=== PATIENT | male | born 1955 | race Caucasian/White ===

== ENCOUNTER 2016-11-05 12:19 | Inpatient (IN) | payer OTHER ==
[2016-11-05] VITALS (12 sets, daily range): BP systolic 84–138; BP diastolic 47–73; PULSE 101–127; RESP 14–24; TEMP 97.8–98.1; O2SAT 98–100
[~2016-11-05] VITALS: Ht 172.7 cm; Wt 87.1 kg
[2016-11-05] MEDS ORDERED: SODIUM CHLOR 0.9% 1000 ML INJ 1,000 ML IV SCH (12:41)
--- NOTE | 2016-11-05 12:41 | PD ---
HPI Chief Complaint: GI Complaint Time Seen by Provider: 12:41 Travel History International Travel<30 days: No Contact w/Intl Traveler<30days: No Traveled to known affect area: No History of Present Illness HPI 60-year-old male with no significant medical history, presents to emergency department for evaluation of shelby red stool that began yesterday and continuing until today. Patient speaks primarily Indonesian and approved his daughter to translate at bedside. Patient states he had some lower abdominal pain yesterday which was quite severe however he is no longer having significant pain but describes it as a mild lower abdominal pain. He had 4 episodes of shelby red bloody stool yesterday and has had them today as well. Last episode was around 9:30 AM this morning. Patient did have a syncopal episode last night which was witnessed. He did not strike his head. Today he denies any headache, focal deficit, or wheezing. He denies fever or chills. He has been nauseous without vomiting. Patient has not had a colonoscopy. He does take 325 mg of aspirin daily and was started on a medication for bloating 2 days ago but cannot recall the name. He has no other symptoms to report. [facility] Past Medical History Medical History: Denies Significant Hx Social History Alcohol Use: No Tobacco Use: No Substance Use: No Allergies-Medications (Allergen,Severity, Reaction): Coded Allergies: No Known Allergies (Unverified , 11/05/16) Reported Meds & Prescriptions Reported Meds & Active Scripts Active Reported [Unk Stomach Pill] DAILY Aspirin 325 Mg Tab 325 Mg PO DAILY Review of Systems Except as stated in HPI: all other systems reviewed are Neg Physical Exam Narrative GENERAL: Well-nourished, male patient, ambulatory and in no acute distress. SKIN: Warm and dry. Patient appears slightly pallor. HEAD: Atraumatic. Normocephalic. EYES: Pupils equal and round. No scleral icterus. No injection or drainage. ENT: No nasal bleeding or discharge. Mucous membranes pink and moist. NECK: Trachea midline. No JVD. CARDIOVASCULAR: Tachycardic rate and rhythm. No murmur appreciated. RESPIRATORY: No accessory muscle use. Clear to auscultation. Breath sounds equal bilaterally. GASTROINTESTINAL: Abdomen soft, nondistended. Left lower quadrant tenderness to palpation. Hepatic and splenic margins not palpable. RECTAL EXAM: No masses. There is tenderness to palpation of the rectal wall. Shelby red stool noted MUSCULOSKELETAL: No obvious deformities. No clubbing. No cyanosis. No edema. NEUROLOGICAL: Awake and alert. No obvious cranial nerve deficits. Motor grossly within normal limits. Normal speech. PSYCHIATRIC: Appropriate mood and affect; insight and judgment normal. Data Data Last Documented VS Vital Signs Date Time Temp Pulse Resp B/P Pulse Ox O2 Delivery O2 Flow Rate FiO2 11/05/16 12:38 111 20 138/69 140 20 113/68 11/05/16 12:22 98.1 100 Room Air Orders Complete Blood Count With Diff (11/05/16 12:41) Comprehensive Metabolic Panel (11/05/16 12:41) Prothrombin Time / Inr (Pt) (11/05/16 12:41) Act Partial Throm Time (Ptt) (11/05/16 12:41) Urinalysis - C+S If Indicated (11/05/16 12:41) Type And Screen (11/05/16 12:41) Chest, Single Ap (11/05/16 12:41) Ecg Monitoring (11/05/16 12:41) Iv Access Insert/Monitor (11/05/16 12:41) Oximetry (11/05/16 12:41) Sodium Chlor 0.9% 1000 Ml Inj (Ns 1000 M (11/05/16 12:41) Sodium Chloride 0.9% Flush (Ns Flush) (11/05/16 12:45) Electrocardiogram (11/05/16 ) Ckmb (Isoenzyme) Profile (11/05/16 12:41) Troponin I (11/05/16 12:41) Ct Abd/Pel W Iv Contrast(Rout) (11/05/16 ) Diet Clear Liquid (11/05/16 Dinner) Peg (High)/E-Lyte Liq (Colyte Liq) (11/05/16 14:15) Npo After Midnight W/ Po Meds (11/05/16 Dinner) Consult Gastroenterology (11/05/16 ) Iohexol 350 Inj (Omnipaque 350 Inj) (11/05/16 14:19) Admit Order (Ed Use Only) (11/05/16 14:27) Labs Laboratory Tests Test 11/05/16 11/05/16 12:55 12:59 White Blood Count 8.2 TH/MM3 Red Blood Count 3.96 MIL/MM3 Hemoglobin 9.9 GM/DL Hematocrit 30.5 % Mean Corpuscular Volume 77.0 FL Mean Corpuscular Hemoglobin 25.0 PG Mean Corpuscular Hemoglobin 32.5 % Concent Red Cell Distribution Width 15.1 % Platelet Count 243 TH/MM3 Mean Platelet Volume 9.4 FL Neutrophils (%) (Auto) 50.7 % Lymphocytes (%) (Auto) 40.2 % Monocytes (%) (Auto) 7.1 % Eosinophils (%) (Auto) 1.3 % Basophils (%) (Auto) 0.7 % Neutrophils # (Auto) 4.2 TH/MM3 Lymphocytes # (Auto) 3.3 TH/MM3 Monocytes # (Auto) 0.6 TH/MM3 Eosinophils # (Auto) 0.1 TH/MM3 Basophils # (Auto) 0.1 TH/MM3 CBC Comment DIFF FINAL Differential Comment Prothrombin Time 10.7 SEC Prothromb Time International 1.0 RATIO Ratio Activated Partial 23.2 SEC Thromboplast Time Sodium Level 137 MEQ/L Potassium Level 3.7 MEQ/L Chloride Level 104 MEQ/L Carbon Dioxide Level 27.1 MEQ/L Anion Gap 6 MEQ/L Blood Urea Nitrogen 23 MG/DL Creatinine 0.91 MG/DL Estimat Glomerular Filtration 86 ML/MIN Rate Random Glucose 120 MG/DL Calcium Level 9.0 MG/DL Total Bilirubin 0.3 MG/DL Aspartate Amino Transf 51 U/L (AST/SGOT) Alanine Aminotransferase 63 U/L (ALT/SGPT) Alkaline Phosphatase 43 U/L Total Creatine Kinase 53 U/L Troponin I LESS THAN 0.02 NG/ML Total Protein 6.6 GM/DL Albumin 3.6 GM/DL Blood Type O POSITIVE Antibody Screen NEGATIVE Blood Bank Comment [facility] Medical Decision Making Medical Screen Exam Complete: Yes Emergency Medical Condition: Yes Medical Record Reviewed: Yes Differential Diagnosis GI bleed versus hemorrhoids versus polyp versus symptomatic anemia versus electrolyte abnormality versus orthostatic hypotension Narrative Course 60-year-old male presents to emergency department for evaluation of a syncopal episode last evening following for episodes of shelby red stool. He continues to have frequent stool today. Patient is tachycardic. Slight left lower abdominal pain to deep palpation. Rectal examination does reveal shelby red stools. He will promptly positive. Hemoglobin is 9.9. CMP is without acute concern. Troponins less than 0.02. I discussed the patient with my attending physician Dr. Blue is also assessed him and would like a prompt call to agricultural pilot. I discussed the patient was Dr. Erwin, GI on-call. He requests the patient be nothing by mouth after midnight, on a clear liquid diet , receive GoLYTELY, and be admitted to medicine. I spoke with Dr. Martínez. Patient will be admitted to his service. 1500 nursing staff has asked if patient can ambulate to the restroom because he is insistent on and will not use a bedside commode or urinal at this time. I advised the patient is to be assisted and somebody stays with him in the restroom. 1510 I am informed that the patient was left in the restroom with family and nursing staff outside the door. He did syncopize. Repeat H&H is ordered, CT of the head is ordered as this was an unwitnessed fall. Liter of normal saline fluid. Patient is made bed rest. 1526 I am informed by radiology that due to patient's IV contrast, CT imaging of the brain may show contrast that appears as blood and patient should wait 12- 24 hours prior to head CT. He is neurologically intact at this time. I discussed the patient with my attending physician Dr. Blue. CT at this time will be canceled. 1630 Repeat HGB is 7.2. DAVION Gottlieb is at bedside. I discussed results with her. PRBC is ordered by here. CT imaging of abd/pelvis also results thickening of the appendix wall, could be indicative of early appendicitis. She has discussed with Dr. Erwin. He will be in to assess pt. HemaPrompt Point of Care Internal Pos. & Neg. Controls: Passed Fecal Specimen Occult Blood: Positive Gastric Specimen Occult Blood: Negative Diagnosis Primary Impression: Rectal bleeding Additional Impressions: Symptomatic anemia Syncope Qualified Code: R55 - Syncope, unspecified syncope type Admitting Information Admitting Physician Requests: Admit Condition: Stable Dalia Davies Nov 05, 2016 12:41
[2016-11-05] MEDS ORDERED: SODIUM CHLORIDE 0.9% FLUSH 5 ML FLUSH IVF PRN (12:45)
[2016-11-05 13:10] LABS: AUTOMATED NEUTROPHIL # 4.2 TH/MM3 (1.8-7.7); BASOPHIL # 0.1 TH/MM3 (0-0.2); BASOPHIL % 0.7 % (0.0-2.0); EOSINOPHIL # 0.1 TH/MM3 (0-0.4); EOSINOPHIL % 1.3 % (0.0-4.0); HEMATOCRIT 30.5 % (39.0-51.0); HEMO FLAGS DIFF FINAL; LYMPH % 40.2 % (9.0-44.0); LYMPHOCYTE # 3.3 TH/MM3 (1.0-4.8); MEAN CORPUSCULAR HGB CONC 32.5 % (32.0-36.0); MONO % 7.1 % (0.0-8.0); NEUT % 50.7 % (16.0-70.0); PLATELET COUNT 243 TH/MM3 (150-450); RED BLOOD COUNT 3.96 MIL/MM3 (4.50-5.90); RED CELL DISTRIBUTION WIDTH 15.1 % (11.6-17.2); WHITE BLOOD COUNT 8.2 TH/MM3 (4.0-11.0)
[2016-11-05 13:22] LABS: APTT (PATIENT) 23.2 SEC (24.3-30.1); PROTHROMBIN TIME - PATIENT 10.7 SEC (9.8-11.6)
[2016-11-05 13:30] LABS: ALT (GPT) 63 U/L (12-78); ANION GAP 6 MEQ/L (5-15); AST (GOT) 51 U/L (15-37); BICARBONATE 27.1 MEQ/L (21.0-32.0); BLOOD UREA NITROGEN 23 MG/DL (7-18); CHLORIDE 104 MEQ/L (98-107); GLOMERULAR FILTRATION RATE 86 ML/MIN (>89); POTASSIUM 3.7 MEQ/L (3.5-5.1); SODIUM (NA) 137 MEQ/L (136-145)
[2016-11-05 13:34] LABS: ALKALINE PHOSPHATASE 43 U/L (45-117); CREATINE KINASE 53 U/L (39-308); TOTAL BILIRUBIN ADULT 0.3 MG/DL (0.2-1.0)
--- NOTE | 2016-11-05 13:42 | RADRPT ---
EXAM DATE/TIME: 11/05/2016 13:03 [facility] COMPARISON: No previous studies available for comparison. INDICATIONS : Palpitations. MEDICAL HISTORY : None. SURGICAL HISTORY : None. ENCOUNTER: Initial ACUITY: 1 day PAIN SCORE: 0/10 LOCATION: Bilateral chest FINDINGS: A single view of the chest demonstrates the lungs to be symmetrically aerated without evidence of mas s, infiltrate or effusion. The cardiomediastinal contours are unremarkable. Osseous structures are intact. CONCLUSION: No acute disease. Saji Lal MD on November 05, 2016 at 13:41 Board Certified Radiologist. This report was verified electronically.
[2016-11-05] MEDS ORDERED: [UNRECOGNIZED DRUG - REMARK] (14:06)
[2016-11-05] MEDS ORDERED: ASPI325T PO (14:06)
[2016-11-05] MEDS ORDERED: PEG (High)/E-LYTE SOLN 4000 ML BTL PO ONE ×2 (14:15→17:00)
[2016-11-05] MEDS ORDERED: IOHEXOL 350 MG/ML 10 ML VIAL (for RAD DIAG) IV ONE (14:19)
--- NOTE | 2016-11-05 14:28 | RADRPT ---
EXAM DATE/TIME: 11/05/2016 14:07 [facility] COMPARISON: No previous studies available for comparison. INDICATIONS : Blood in stool. Fell two days ago. IV CONTRAST: 100 cc Omnipaque 350 (iohexol) IV ORAL CONTRAST: No oral contrast ingested. RADIATION DOSE: 9.96 CTDIvol (mGy) MEDICAL HISTORY : None SURGICAL HISTORY : None. ENCOUNTER: Initial ACUITY: 2 days PAIN SCALE: 5/10 LOCATION: Bilateral abdomen. TECHNIQUE: Volumetric scanning of the abdomen and pelvis was performed. Using automated exposure control and ad justment of the mA and/or kV according to patient size, radiation dose was kept as low as reasonably achievable to obtain optimal diagnostic quality images. FINDINGS: LOWER LUNGS: The visualized lower lungs are clear. LIVER: Homogeneous density without lesion. There is no dilation of the biliary tree. No calcified gallston es. SPLEEN: Normal size without lesion. PANCREAS: Within normal limits. KIDNEYS: Normal in size and shape. There is no mass, stone or hydronephrosis. ADRENAL GLANDS: Within normal limits. VASCULAR: There is no aortic aneurysm. BOWEL/MESENTERY: The appendix appears mildly enlarged measuring 1.2 cm in transverse diameter. No evidence of adjacent fat stranding or free fluid. No appendicolith is identified. The stomach, small bowel, and colon dem onstrate no acute abnormality. There is no free intraperitoneal air or fluid. ABDOMINAL WALL: Within normal limits. RETROPERITONEUM: There is no lymphadenopathy. BLADDER: No wall thickening or mass. REPRODUCTIVE: Within normal limits. INGUINAL: There is no lymphadenopathy or hernia. MUSCULOSKELETAL: Within normal limits for patient age. CONCLUSION: Appendiceal wall thickening with the appendix measuring 1.2 cm in transverse diameter. No evidence of appendicolith, adjacent fat stranding or free fluid. These findings may represent an early appendici tis. Correlate for right lower quadrant pain.. Kori Livingston MD on November 05, 2016 at 14:22 Board Certified Radiologist. This report was verified electronically.
[2016-11-05] MEDS ORDERED: SODIUM CHLOR 0.9% 1000 ML INJ 1,000 ML IV ONE (15:30)
[2016-11-05 16:10] LABS: HEMATOCRIT 22.7 % (39.0-51.0); REVIEW FLAG FINAL
--- NOTE | 2016-11-05 16:23 | PD.CONS ---
HPI History of Present Illness This is a 60 year old male patient who came to the ER for evaluation of hematochezia consisting of bright red blood. He reports that on Saturday, he had some lower abdominal pain, but this subsided and he was fine up until yesterday. He is unable to describe his pain. Yesterday, he had the urge to move his bowels and he states that these were normal and that he was not straining to move his bowels. He had a moderate to large amount of shelby red blood mixed within his stools. He then had 3 more episodes throughout the day, each time, with a decreasing amount of blood. He is no longer having any abdominal pain. He does have GERD and takes omeprazole for this. He denies any fevers or chills. He denies any nausea/vomiting. He has never any similar type episodes. He denies any recent travel, suspicious food, or sick contacts. The nurse report that he had to urinate and insisted that he had to use the restroom, not a urinal. She tried sitting him on the side of the bed, but he was not able to go and wanted to go to the BR. They insisted him to the bathroom and the nurse reports that he had a syncopal episode in the bathroom, but did not sustain any injuries. He reports that he took 2 ASA over the weekend and does not usually take this. (Bre Woodward) PFSH Past Medical History Essential tremors GERD Past Surgical History Denies (Bre Woodward) Coded Allergies: No Known Allergies (Unverified , 11/05/16) Medications Allergies Coded Allergies Type Severity Reaction Last Updated Verified No Known Allergies 11/05/16 No Active Scripts Medications Dose Route/Sig Days Date Category [Unk Stomach Pill] DAILY 11/05/16 Reported Aspirin 325 Mg Tab 325 Mg PO DAILY 11/05/16 Reported Family History Unable to obtain Social History Smokes tobacco intermittently for many years, recently started back 8 years ago. No ETOH. (Bre Woodward) Review of Systems Constitutional: COMPLAINS OF: Fatigue, DENIES: Fever, Chills Cardiovascular: DENIES: Chest pain Gastrointestinal: COMPLAINS OF: Abdominal pain, Bloody stools, DENIES: Black stools, Constipation, Diarrhea, Nausea, Vomiting, Heartburn Integumentary: DENIES: Abnormal pigmentation Hematologic/lymphatic: DENIES: Bruising Neurologic: DENIES: Headache Psychiatric: DENIES: Confusion (Bre Woodward) GI Exam Vitals I&O Vital Signs Date Time Temp Pulse Resp B/P Pulse Ox O2 Delivery O2 Flow Rate FiO2 11/05/16 12:38 111 20 138/69 140 20 113/68 11/05/16 12:22 98.1 123 14 120/73 100 Room Air Imaging Last Impressions Chest X-Ray 11/05/16 1241 Signed Impressions: Service Date/Time: Saturday, November 05, 2016 13:03 - CONCLUSION: No acute disease. Saji Lal MD Laboratory Test 11/05/16 11/05/16 12:55 12:59 White Blood Count 8.2 TH/MM3 Red Blood Count 3.96 MIL/MM3 Hemoglobin 9.9 GM/DL Hematocrit 30.5 % Mean Corpuscular Volume 77.0 FL Mean Corpuscular Hemoglobin 25.0 PG Mean Corpuscular Hemoglobin 32.5 % Concent Red Cell Distribution Width 15.1 % Platelet Count 243 TH/MM3 Mean Platelet Volume 9.4 FL Neutrophils (%) (Auto) 50.7 % Lymphocytes (%) (Auto) 40.2 % Monocytes (%) (Auto) 7.1 % Eosinophils (%) (Auto) 1.3 % Basophils (%) (Auto) 0.7 % Neutrophils # (Auto) 4.2 TH/MM3 Lymphocytes # (Auto) 3.3 TH/MM3 Monocytes # (Auto) 0.6 TH/MM3 Eosinophils # (Auto) 0.1 TH/MM3 Basophils # (Auto) 0.1 TH/MM3 CBC Comment DIFF FINAL Differential Comment Prothrombin Time 10.7 SEC Prothromb Time International 1.0 RATIO Ratio Activated Partial 23.2 SEC Thromboplast Time Sodium Level 137 MEQ/L Potassium Level 3.7 MEQ/L Chloride Level 104 MEQ/L Carbon Dioxide Level 27.1 MEQ/L Anion Gap 6 MEQ/L Blood Urea Nitrogen 23 MG/DL Creatinine 0.91 MG/DL Estimat Glomerular Filtration 86 ML/MIN Rate Random Glucose 120 MG/DL Calcium Level 9.0 MG/DL Total Bilirubin 0.3 MG/DL Aspartate Amino Transf 51 U/L (AST/SGOT) Alanine Aminotransferase 63 U/L (ALT/SGPT) Alkaline Phosphatase 43 U/L Total Creatine Kinase 53 U/L Troponin I LESS THAN 0.02 NG/ML Total Protein 6.6 GM/DL Albumin 3.6 GM/DL Blood Type O POSITIVE Antibody Screen NEGATIVE Blood Bank Comment Physical Examination HEENT: Normocephalic; atraumatic; no jaundice. CHEST: CTA CARDIAC: RRR ABDOMEN: Soft, nondistended, nontender; no hepatosplenomegaly; bowel sounds are present in all four quadrants. EXTREMITIES: No clubbing, cyanosis, or edema. SKIN: Normal; no rash; no jaundice. PEARL DIVER: No focal deficits; alert and oriented times three. (WoodwardBre Amandaariadna RICARDO) Assessment and Plan Plan ASSESSMENT: - Hematochezia with BRBPR. Started yesterday, 1st episode with moderate/large amount of shelby red blood mixed in his stool. He had 3 more episodes, each with a decreasing amount. He did have lower abdominal pain initially, but is not having now. He has GERD and takes omeprazole 20mg po daily. He also took 2 ASA over the weekend. He denies any hx of GIB and has never had a colonoscopy. CT Abdomen and pelvis (11/05/16)----> Appendiceal wall thickening with the appendix measuring 1.2 cm in transverse diameter. No evidence of appendicolith, adjacent fat stranding or free fluid. These findings may represent an early appendicitis. Of note, his WBC is normal. HH 9.9/30.5. - Anemia secondary to acute blood loss. HH 9.9/30.5. - Abnormal imaging on CT scan. (11/05/16)----> Appendiceal wall thickening with the appendix measuring 1.2 cm in transverse diameter. No evidence of appendicolith, adjacent fat stranding or free fluid. These findings may represent an early appendicitis. Of note, his WBC is normal. - Syncopal episode, while trying to go to the in ER, no apparent injury - GERD, PPI PLAN: - NPO for now - PPI - Monitor CBC, BMP - Transfuse as necessary - Further recommendations to follow based on results of above - Pt seen and examined by Dr. Erwin and myself and this note is written on his behalf \ ADDENDUM. H/H dropped to 7.2/22.7. Tachycardic with a syncopal episode. Will order 2 units of PRBC (Bre Woodward) Physician Comments Patient seen and examined Agree with above Continue with current supportive care Monitor labs and transfuse as needed Plan for an EGD and a colonoscopy tomorrow (Shaan Erwin MD) Bre Woodward Nov 05, 2016 16:23 Shaan Erwin MD Nov 05, 2016 23:04
--- NOTE | 2016-11-05 16:29 | HHI.HP ---
HPI Service [facility] Primary Care Physician Dr. Lalo Fermin Admission Diagnosis Rectal bleeding; symptomatic anemia Chief Complaint: Rectal bleeding Travel History International Travel<30 Days: No Contact w/Intl Traveler <30 Da: No Traveled to Known Affected Are: No History of Present Illness Mr. Butler is a 60 y/o male with GERD and essential tremor. He presented to the ED at [facility] on 11/05/16 for evaluation of dark red blood per rectum. Patient speaks primarily French but there were multiple family members present to translate at bedside. Pts family relays that yesterday afternoon the pt had a syncopal episode after urinating. He did not strike his head and the syncope was witnessed by his family. The pt then started having some lower abdominal pain and had to have a BM. When he did have a BM it was dark red blood. The pt reports having another 4 episode of rectal bleeding last night and into this morning. His last episode of rectal bleeding was around 0900 this morning. Patient states the lower abdominal pain yesterday was quite severe however he is no longer having significant pain. It was described as a mild lower abdominal pain currently, more so on the left hand side. Pt denies any headache , focal deficit, fever or chills. He has been nauseous without vomiting. Patient has not had a colonoscopy. He states that last week he saw his PCP, Dr. Fermin, with complaints of epigastric abd pain and had a CMP and EKG performed. EKG noted sinus rhythm and his labs were stable. He was recommended to start ASA 325 mg daily and Omeprazole 20mg po daily. Review of Systems Constitutional: DENIES: Fever, Chills Eyes: DENIES: Vision loss Ears, nose, mouth, throat: DENIES: Hearing loss Respiratory: DENIES: Cough, Shortness of breath Cardiovascular: DENIES: Chest pain, Palpitations, Lower Extremity Edema Gastrointestinal: COMPLAINS OF: Abdominal pain, Bloody stools, Nausea, DENIES : Vomiting Genitourinary: DENIES: Dysuria Musculoskeletal: DENIES: Back pain, Neck pain Integumentary: DENIES: Rash Hematologic/lymphatic: DENIES: Bruising Neurologic: DENIES: Abnormal gait, Headache, Localized weakness, Paresthesias, Speech Problems, Poor Balance Psychiatric: DENIES: Confusion Past Family Social History Past Medical History GERD Essential tremor Past Surgical History None reported Reported Medications Omeprazole 20mg po daily ASA 325mg po daily Allergies: Coded Allergies: No Known Allergies (Unverified , 11/05/16) Family History Non contributory Social History Denies any alcohol, tobacco or illicit drug use Physical Exam Vital Signs Vital Signs Date Time Temp Pulse Resp B/P Pulse Ox O2 Delivery O2 Flow Rate FiO2 11/05/16 15:50 102 20 106/68 100 Room Air 11/05/16 15:20 112 20 101/58 100 11/05/16 12:38 111 20 138/69 140 20 113/68 11/05/16 12:22 98.1 123 14 120/73 100 Room Air Physical Exam GENERAL: This is a well-nourished, well-developed patient, in no apparent distress. HEENT: Atraumatic. Normocephalic. No temporal or scalp tenderness. No scleral icterus. Airway patent. NECK: Trachea midline, supple, nontender. CARDIO: Regular. RESP: CTA bilaterally. No wheezes, rales, or rhonchi. ABD: +BS, soft, mild left lower abdominal tenderness, no guarding or rebound. EXT: Extremities without clubbing, cyanosis, or edema. NEURO: Awake and alert. Motor and sensory grossly within normal limits. Normal speech. Laboratory Laboratory Tests Test 11/05/16 11/05/16 12:55 12:59 White Blood Count 8.2 Red Blood Count 3.96 Hemoglobin 9.9 Hematocrit 30.5 Mean Corpuscular Volume 77.0 Mean Corpuscular Hemoglobin 25.0 Mean Corpuscular Hemoglobin 32.5 Concent Red Cell Distribution Width 15.1 Platelet Count 243 Mean Platelet Volume 9.4 Neutrophils (%) (Auto) 50.7 Lymphocytes (%) (Auto) 40.2 Monocytes (%) (Auto) 7.1 Eosinophils (%) (Auto) 1.3 Basophils (%) (Auto) 0.7 Neutrophils # (Auto) 4.2 Lymphocytes # (Auto) 3.3 Monocytes # (Auto) 0.6 Eosinophils # (Auto) 0.1 Basophils # (Auto) 0.1 CBC Comment DIFF FINAL Differential Comment Prothrombin Time 10.7 Prothromb Time International 1.0 Ratio Activated Partial 23.2 Thromboplast Time Sodium Level 137 Potassium Level 3.7 Chloride Level 104 Carbon Dioxide Level 27.1 Anion Gap 6 Blood Urea Nitrogen 23 Creatinine 0.91 Estimat Glomerular Filtration 86 Rate Random Glucose 120 Calcium Level 9.0 Total Bilirubin 0.3 Aspartate Amino Transf 51 (AST/SGOT) Alanine Aminotransferase 63 (ALT/SGPT) Alkaline Phosphatase 43 Total Creatine Kinase 53 Troponin I LESS THAN 0.02 Total Protein 6.6 Albumin 3.6 Blood Type O POSITIVE Antibody Screen NEGATIVE Blood Bank Comment Result Diagram: 11/05/16 1255 11/05/16 1255 Imaging Last Impressions Chest X-Ray 11/05/16 1241 Signed Impressions: Service Date/Time: Saturday, November 05, 2016 13:03 - CONCLUSION: No acute disease. Saji Lal MD Septic Shock Reassessment Heart: Irregular Lungs: Clear Skin: Warm Capillary Refill: <2 seconds Assessment and Plan Problem List: (1) Rectal bleeding Status: Acute Plan: - Pt admitted with 4-5 episodes of dark red rectal bleeding that began yesterday - Pt has not previously been evaluated with EGD or colonoscopy. - Hgb at admission was 9.9 and has decreased to 7.2 - CT Abd/pelvis (11/05/16) --> Appendiceal wall thickening with the appendix measuring 1.2cm in transverse diameter, no evidence of appendicolith, adjacent fat stranding or free fluid. - pt does not clinically appear to have appendicitis - Pt has orders for transfusion with 2 units PRBCs and keep 2 units of PRBCs on hold - Serial H/H - GI has been consulted - Pt is planned for evaluation with EGD/colonoscopy tomorrow. - Protonix 40mg IV daily - IVF - Supportive care - DVT prophylaxis with SCDs (2) Symptomatic anemia Status: Acute Plan: - See above. (3) Syncope Status: Acute Plan: - Pt had a syncopal episode yesterday while on the commode per the pt family which may have been vasovagal - He also had some weakness while in the bathroom in the ER and had to be helped off the floor per nursing staff - This is likely secondary to his GIB and anemia - Bed rest and may use the bedside commode only with assistance Assessment and Plan Patient examined. Assessment and plan formulated with Merary Byrd PA-C. I agree with the above. rectal bleeding, blood loss anemia with syncope and sinus tach. discussed with GI...suprapubic pain. could be diverticular bleed. will get 2 units blood, ivf, egd/colon in AM. npo and ppi iv. Physician Certification 2 Midnight Certification Type: Admission for Inpatient Services Order for Inpatient Services The services are ordered in accordance with Medicare regulations or non- Medicare payer requirements, as applicable. In the case of services not specified as inpatient-only, they are appropriately provided as inpatient services in accordance with the 2-midnight benchmark. Estimated LOS (days): 3 3 days is the estimated time the patient will need to remain in the hospital, assuming treatment plan goals are met and no additional complications. Post-Hospital Plan: Not yet determined Problem Qualifiers (1) Syncope: Qualified Code: R55 - Syncope, unspecified syncope type Merary Byrd Nov 05, 2016 16:29 Herbie Martínez MD Nov 05, 2016 21:49
[2016-11-05] MEDS ORDERED: SODIUM CHLOR 0.9% 250 ML INJ 250 ML IV ONE (16:45)
--- NOTE | 2016-11-05 17:16 | PD ---
Physical Exam Date Seen by Provider: Nov 05, 2016 Time Seen by Provider: 12:00 Narrative 60-year-old male came to the emergency room with history of rectal bleed. It started yesterday and patient has had 4-5 episodes the last one being at 9 AM. He was tachycardic upon arrival and looks pale and anxious. He is seen by the nurse practitioner and I'm supervising her. She did a rectal exam and she had maroon colored blood on her gloved finger. I have recommended her to consult GI as soon as possible. Patient is getting blood work and IV fluid. I explained this to the patient and his family as well. Data Data Last Documented VS Vital Signs Date Time Temp Pulse Resp B/P Pulse Ox O2 Delivery O2 Flow Rate FiO2 11/05/16 12:38 111 20 138/69 140 20 113/68 11/05/16 12:22 98.1 100 Room Air Orders Complete Blood Count With Diff (11/05/16 12:41) Comprehensive Metabolic Panel (11/05/16 12:41) Prothrombin Time / Inr (Pt) (11/05/16 12:41) Act Partial Throm Time (Ptt) (11/05/16 12:41) Urinalysis - C+S If Indicated (11/05/16 12:41) Type And Screen (11/05/16 12:41) Chest, Single Ap (11/05/16 12:41) Ecg Monitoring (11/05/16 12:41) Iv Access Insert/Monitor (11/05/16 12:41) Oximetry (11/05/16 12:41) Sodium Chlor 0.9% 1000 Ml Inj (Ns 1000 M (11/05/16 12:41) Sodium Chloride 0.9% Flush (Ns Flush) (11/05/16 12:45) Electrocardiogram (11/05/16 ) Ckmb (Isoenzyme) Profile (11/05/16 12:41) Troponin I (11/05/16 12:41) Ct Abd/Pel W Iv Contrast(Rout) (11/05/16 ) Diet Clear Liquid (11/05/16 Dinner) Peg (High)/E-Lyte Liq (Colyte Liq) (11/05/16 14:15) Npo After Midnight W/ Po Meds (11/05/16 Dinner) Consult Gastroenterology (11/05/16 ) Iohexol 350 Inj (Omnipaque 350 Inj) (11/05/16 14:19) Admit Order (Ed Use Only) (11/05/16 14:27) Labs Laboratory Tests Test 11/05/16 11/05/16 12:55 12:59 White Blood Count 8.2 TH/MM3 Red Blood Count 3.96 MIL/MM3 Hemoglobin 9.9 GM/DL Hematocrit 30.5 % Mean Corpuscular Volume 77.0 FL Mean Corpuscular Hemoglobin 25.0 PG Mean Corpuscular Hemoglobin 32.5 % Concent Red Cell Distribution Width 15.1 % Platelet Count 243 TH/MM3 Mean Platelet Volume 9.4 FL Neutrophils (%) (Auto) 50.7 % Lymphocytes (%) (Auto) 40.2 % Monocytes (%) (Auto) 7.1 % Eosinophils (%) (Auto) 1.3 % Basophils (%) (Auto) 0.7 % Neutrophils # (Auto) 4.2 TH/MM3 Lymphocytes # (Auto) 3.3 TH/MM3 Monocytes # (Auto) 0.6 TH/MM3 Eosinophils # (Auto) 0.1 TH/MM3 Basophils # (Auto) 0.1 TH/MM3 CBC Comment DIFF FINAL Differential Comment Prothrombin Time 10.7 SEC Prothromb Time International 1.0 RATIO Ratio Activated Partial 23.2 SEC Thromboplast Time Sodium Level 137 MEQ/L Potassium Level 3.7 MEQ/L Chloride Level 104 MEQ/L Carbon Dioxide Level 27.1 MEQ/L Anion Gap 6 MEQ/L Blood Urea Nitrogen 23 MG/DL Creatinine 0.91 MG/DL Estimat Glomerular Filtration 86 ML/MIN Rate Random Glucose 120 MG/DL Calcium Level 9.0 MG/DL Total Bilirubin 0.3 MG/DL Aspartate Amino Transf 51 U/L (AST/SGOT) Alanine Aminotransferase 63 U/L (ALT/SGPT) Alkaline Phosphatase 43 U/L Total Creatine Kinase 53 U/L Troponin I LESS THAN 0.02 NG/ML Total Protein 6.6 GM/DL Albumin 3.6 GM/DL Blood Type O POSITIVE Antibody Screen NEGATIVE Blood Bank Comment [facility] Supervised Visit with CEDRIC: Yes Diagnosis Primary Impression: Rectal bleeding Additional Impressions: Symptomatic anemia Syncope Qualified Code: R55 - Syncope, unspecified syncope type Condition: Stable Junior Blue MD Nov 05, 2016 17:16
[2016-11-05] MEDS: NS + KCL 20 MEQ INJ 1,000 ML IV SCH (17:46)
[2016-11-05] MEDS ORDERED: PANTOPRAZOLE SODIUM 40 MG VIAL IV PUSH SCH (18:00)
[2016-11-05 21:51] LABS: REVIEW FLAG FINAL
[2016-11-06] VITALS (26 sets, daily range): BP systolic 84–137; BP diastolic 49–65; PULSE 89–145; RESP 14–25; TEMP 97.4–99; O2SAT 98–100
[2016-11-06] MEDS ORDERED: MORPHINE SULFATE 4 MG/ML INJ IV SCH (01:00)
[2016-11-06 01:16] LABS: REVIEW FLAG FINAL
[2016-11-06 01:17] LABS: HEMATOCRIT 19.1 % (39.0-51.0)
--- NOTE | 2016-11-06 01:28 | PD.CONS ---
HPI Service Critical Care Medicine Consult Requested By [facility] Reason for Consult Circulatory Shock Primary Care Physician Unknown History of Present Illness 60 y/o man presented to ED after several episodes of rectal bleeding associated with lower abdominal pain. Initially hypotensive low 80s while anxious and frightened. Had postural syncope after two units PRBCs. Hgb drop 2.5 gms and now is hypotensive again with sustained tachycardia. Appears pale. He has vomited twice now, rust colored, not gross blood.Transferred rapidly to ICU and lines immediately placed for ongoing resuscitation. CT Scan abdomen/pelvis benign except for possibly thickened appendix. Review of Systems ROS Severe lower abdominal pain, left worse than right. Nauseated. Past Family Social History Allergies: Coded Allergies: No Known Allergies (Unverified , 11/05/16) Past Medical History Past Medical History Medical History: Denies Significant Hx Social History Alcohol Use: No Tobacco Use: No Substance Use: No Allergies-Medications Allergies-Medications (Allergen,Severity, Reaction): Coded Allergies: No Known Allergies (Unverified , 11/05/16) Reported Meds & Prescriptions Reported Meds & Active Scripts Active Reported Omeprazole 20 mg DAILY Aspirin 325 Mg Tab 325 Mg PO DAILY Physical Exam Vital Signs Vital Signs Date Time Temp Pulse Resp B/P Pulse Ox O2 Delivery O2 Flow Rate FiO2 11/05/16 23:52 127 20 84/51 100 11/05/16 23:30 115 20 85/53 98 11/05/16 23:04 124 20 109/56 100 11/05/16 23:03 120 24 85/47 100 11/05/16 20:21 97.8 101 20 114/55 100 11/05/16 19:10 118 20 106/59 100 Room Air 11/05/16 18:05 122 20 104/55 100 Room Air 11/05/16 17:47 113 20 106/64 Room Air 11/05/16 15:50 102 20 106/68 100 Room Air 11/05/16 15:20 112 20 101/58 100 11/05/16 12:38 111 20 138/69 140 20 113/68 11/05/16 12:22 98.1 123 14 120/73 100 Room Air Physical Exam P 128, SBP 82, R 20, sats 97% 2L General: Ill-appearing man in considerable distress. Head: Atraumatic, pale. Neck: Supple, airway patent. Lungs: Clear, no wheezes or crackles. Heart: NL S1S2, no m,r. Neck veins flat when supine. Fem pulse 3+ laury. Abdomen: Soft. No tenderness to palpation but complains of lower abdominal pain. No peritoneal guarding. BS active. No masses. No AAA. Extremities: Tepid, poorly perfused. Skin: Pale, damp. Neuro: Slight language barrier but appears O X 3. Cooperative. Moves 4 limbs spontaneously. Laboratory Laboratory Tests Test 11/05/16 11/05/16 11/05/16 11/05/16 12:55 12:59 15:45 16:50 White Blood Count 8.2 Red Blood Count 3.96 Hemoglobin 9.9 7.2 Hematocrit 30.5 22.7 Mean Corpuscular Volume 77.0 Mean Corpuscular Hemoglobin 25.0 Mean Corpuscular Hemoglobin 32.5 Concent Red Cell Distribution Width 15.1 Platelet Count 243 Mean Platelet Volume 9.4 Neutrophils (%) (Auto) 50.7 Lymphocytes (%) (Auto) 40.2 Monocytes (%) (Auto) 7.1 Eosinophils (%) (Auto) 1.3 Basophils (%) (Auto) 0.7 Neutrophils # (Auto) 4.2 Lymphocytes # (Auto) 3.3 Monocytes # (Auto) 0.6 Eosinophils # (Auto) 0.1 Basophils # (Auto) 0.1 CBC Comment DIFF FINAL Differential Comment Prothrombin Time 10.7 Prothromb Time International 1.0 Ratio Activated Partial 23.2 Thromboplast Time Sodium Level 137 Potassium Level 3.7 Chloride Level 104 Carbon Dioxide Level 27.1 Anion Gap 6 Blood Urea Nitrogen 23 Creatinine 0.91 Estimat Glomerular Filtration 86 Rate Random Glucose 120 Calcium Level 9.0 Total Bilirubin 0.3 Aspartate Amino Transf 51 (AST/SGOT) Alanine Aminotransferase 63 (ALT/SGPT) Alkaline Phosphatase 43 Total Creatine Kinase 53 Troponin I LESS THAN 0.02 Total Protein 6.6 Albumin 3.6 Blood Type O POSITIVE O POSITIVE Antibody Screen NEGATIVE Blood Bank Comment Crossmatch Leukocyte-Reduced Red Blood Cells Test 11/05/16 11/05/16 18:03 21:25 Blood Type O POSITIVE Hemoglobin 8.7 Hematocrit 26.0 Result Diagram: 11/05/16 2390 11/05/16 8871 Assessment and Plan Problem List: (1) Hypovolemic shock ICD Code: R57.1 Status: Acute (2) Rectal bleeding ICD Code: K62.5 Status: Acute (3) Symptomatic anemia ICD Code: D64.9 Status: Acute (4) Syncope ICD Code: R55 Status: Acute Assessment and Plan Plan: CV: Insertion CVL. Follow CVP. Cardiac markers. Check ScVO2. RESP: Suppl O2 to keep sat > 92% NEURO: MS 4 mg iv prn. RENAL: Follow creat/bun, aggressive hydration. GI: Bowel prep if tolerated. Place NG to LIS. Protonix. : Lange for hourly output. ID: Cultures for fevers. HEME: Follow Hgb, coags. ENDO: NA PX: SCDs, protonix Overall impression: Lower GI hemorrhage and critically ill with hemorrhagic shock. Bleeding still active and CVP 0. Sustained tachycardia implicates ongoing hemorrhage. Prognosis guarded. Critical Care 45 mins aside from procedures. Problem Qualifiers (1) Syncope: Qualified Code: R55 - Syncope, unspecified syncope type Derrick Honeycutt MD Nov 06, 2016 01:28
--- NOTE | 2016-11-06 01:31 | PD.PROCEDR ---
Procedure Note Procedure DX: Hypovolemic Shock OP: Insertion Central Venous Line (54343) Procedure: Left chest prepped and draped. Left subclavian vein cannulated and wire easily advanced. Catheter passed over wire to 18 cm. Lumens aspirated and flushed. Dressing applied. CXR with line in good position, suitable for use. Derrick Honeycutt MD Nov 06, 2016 01:31
[2016-11-06] MEDS ORDERED: PANTOPRAZOLE SODIUM 40 MG VIAL IV PUSH ONE (01:45)
[2016-11-06] MEDS ORDERED: MIDAZOLAM HCL 5 MG/ML VIAL (1 ML) ONE (01:49)
[2016-11-06] MEDS ORDERED: ROCURONIUM INJ 50 MG/5 ML VIAL ONE (01:49)
[2016-11-06] MEDS ORDERED: ROCURONIUM INJ 100 MG/10 ML VIAL IV ONE (02:00)
[2016-11-06] MEDS ORDERED: MIDAZOLAM HCL 5 MG/ML VIAL (1 ML) IV ONE (02:00)
--- NOTE | 2016-11-06 02:04 | RADRPT ---
EXAM DATE/TIME: 11/06/2016 01:10 [facility] COMPARISON: CHEST SINGLE AP, November 05, 2016, 13:03. INDICATIONS : Post central line placement. MEDICAL HISTORY : None. SURGICAL HISTORY : None. ENCOUNTER: Initial ACUITY: 1 day PAIN SCORE: 0/10 LOCATION: Bilateral chest FINDINGS: A single view of the chest demonstrates the lungs to be symmetrically aerated without evidence of mas s, infiltrate or effusion. The cardiomediastinal contours are unremarkable. Osseous structures are intact. No pneumothorax. CONCLUSION: No acute disease. Left subclavian central line with tip in the SVC. Camacho Walton MD on November 06, 2016 at 2:02 Board Certified Radiologist. This report was verified electronically.
[2016-11-06] MEDS ORDERED: PROPOFOL 1000 MG/100 ML INJ 100 ML ONE ×2 (02:30→05:49)
[2016-11-06] MEDS: MORPHINE SULFATE 4 MG/ML INJ IV PUSH PRN ×3 (02:52→10:47)
[2016-11-06 02:57] LABS: HEMATOCRIT 24.9 % (39.0-51.0); REVIEW FLAG FINAL
--- NOTE | 2016-11-06 03:03 | RADRPT ---
EXAM DATE/TIME: 11/06/2016 02:15 [facility] COMPARISON: CHEST SINGLE AP, November 06, 2016, 1:10. INDICATIONS : Post intubation. MEDICAL HISTORY : None. SURGICAL HISTORY : None. ENCOUNTER: Subsequent ACUITY: 1 day PAIN SCORE: Non-responsive. LOCATION: Bilateral chest FINDINGS: A single view of the chest demonstrates the lungs to be symmetrically aerated without evidence of mas s, infiltrate or effusion. Endotracheal tube 3 cm above the cornelius. Nasogastric tube tip in stomach. Left subclavian central line with tip in SVC. The cardiomediastinal contours are unremarkable. [place] structures are intact. CONCLUSION: ETT 3 cm above cornelius. Camacho Walton MD on November 06, 2016 at 3:01 Board Certified Radiologist. This report was verified electronically.
[2016-11-06] MEDS: PANTOPRAZOLE INJ 80 MG in SODIUM CHLORIDE 0.9% INJ 100 ML IV SCH ×3 (03:15→21:51)
--- NOTE | 2016-11-06 03:26 | PD.PROCEDR ---
Procedure Note Procedure DX: Hypovolemic Shock, Respiratory Failure OP: 1. Orotracheal Intubation (06152) 2. Insertion Right Radial Artery Line (13016) Procedure: Rapid sequence induction with versed 5 mg and rocuronium 100 mg. Intubated orally with 8.0 tube. Position confirmed with CO2 detection, breath sounds, sats 100%. CXR with tube in good position. Ezequiel test normal right hand. Right wrist supinated, prepped and draped. 20 gauge cannula placed over needle into right radial artery and good waveform observed. Dressing applied. Circulation intact to right hand after procedure. Derrick Honeycutt MD Nov 06, 2016 03:26
[2016-11-06] MEDS: NS + KCL 20 MEQ INJ 1,000 ML IV SCH ×5 (04:00→23:57)
[2016-11-06 05:06] LABS: BLOOD GAS BASE EXCESS -6.1 mmol/L (-2-2); BLOOD GAS CARBOXYHEMOGLOBIN 0.9 % (0-4); BLOOD GAS HCO3 18 mmol/L (22-26); BLOOD GAS METHEMOGLOBIN 0.8 % (0-2); BLOOD GAS O2 HGB SATURATION 98 % (90-100); BLOOD GAS PCO2 33 mmHg (38-42); BLOOD GAS PO2 193 mmHg (61-120); BLOOD GAS TOTAL HGB 8.4 G/DL (12.0-16.0); CRITICAL VALUE NO; OXYGEN DEVICE VENTILATOR; TEMP CORR TO 98.6
[2016-11-06 05:07] LABS: DRAW SITE ART LINE; FIO2 50 %; STAT NO; VENT SETTINGS PRVC/AC
[2016-11-06 07:14] LABS: APTT (PATIENT) 23.4 SEC (24.3-30.1); INTERNATIONAL NORMALIZED RATIO 1.1 RATIO; PROTHROMBIN TIME - PATIENT 11.8 SEC (9.8-11.6)
[2016-11-06 07:15] LABS: HEMATOCRIT 27.9 % (39.0-51.0); MEAN CELL VOLUME 83.1 FL (80.0-100.0); MEAN CORPUSCULAR HEMOGLOBIN 27.9 PG (27.0-34.0); MEAN CORPUSCULAR HGB CONC 33.5 % (32.0-36.0); PLATELET COUNT 125 TH/MM3 (150-450); RED BLOOD COUNT 3.35 MIL/MM3 (4.50-5.90); RED CELL DISTRIBUTION WIDTH 14.9 % (11.6-17.2); WHITE BLOOD COUNT 20.5 TH/MM3 (4.0-11.0)
[2016-11-06 07:16] LABS: REVIEW FLAG AUTO DIFF
[2016-11-06] MEDS ORDERED: LACTATED RINGER'S 1000 ML INJ 1,000 ML IV ONE ×4 (09:00→14:00)
[2016-11-06] MEDS: PROPOFOL 1000 MG/100 ML INJ 100 ML IV SCH (09:39)
[2016-11-06] MEDS: ALBUMIN HUMAN 5% 25 GM/500 ML BOTTLE IV SCH ×2 (12:06→22:32)
[2016-11-06 12:12] LABS: HEMATOCRIT 25.1 % (39.0-51.0)
[2016-11-06 12:13] LABS: REVIEW FLAG FINAL
--- NOTE | 2016-11-06 13:55 | EKG ---
Date Performed: 11/05/2016 Time Performed: 12:47:26 PTAGE: 60 years EKG: SINUS TACHYCARDIA WITH OCCASIONAL VENTRICULAR PREMATURE COMPLEXES NONSPECIFIC T-WAVE ABNORM ALITY ABNORMAL RHYTHM ECG NO PREVIOUS TRACING DOCTOR: Andres Hernandez Interpretating Date/Time 11/06/2016 13:53:39
[2016-11-06] MEDS: MIDAZOLAM 100 MG/ML INJ 100 ML IV SCH ×2 (14:28→22:58)
[2016-11-06] MEDS: VASOPRESSIN INJ 40 UNITS in DEXTROSE 5% IN WATER 100ML INJ 98 ML IV SCH ×4 (14:40→23:12)
[2016-11-06] MEDS ORDERED: NS + KCL 20 MEQ INJ 1,000 ML IV SCH (15:15)
--- NOTE | 2016-11-06 16:26 | HHI.GIFU ---
Subjective Remarks Pt did not tolerate the Golytely last night, vomited this back up. He was intubated for airway protection and transferred to the unit for closer observation. Today, he has not had any active bleeding. Family at bedside. D/ W patient reason for holding on egd/colonoscopy today and rescheduling for tomorrow. All questions answered. Verbalizes understanding. (Bre Woodward) Objective Vitals I&O Vital Signs Date Time Temp Pulse Resp B/P Pulse Ox O2 Delivery O2 Flow Rate FiO2 11/06/16 15:34 100 40 11/06/16 08:33 100 40 11/06/16 06:00 112 11/06/16 05:44 14 11/06/16 04:36 100 40 11/06/16 04:35 40 11/06/16 04:15 98.1 145 14 108/65 100 11/06/16 04:00 98.7 110 25 96/58 100 11/06/16 04:00 110 11/06/16 02:10 100 50 11/06/16 02:00 50 11/06/16 02:00 145 11/06/16 01:45 98.1 145 14 108/65 100 11/06/16 01:15 97.4 113 14 137/49 100 11/06/16 01:06 132 24 84/50 100 Nasal Cannula 2 11/06/16 00:45 100 Nasal Cannula 3.00 11/06/16 00:30 115 20 85/53 98 Nasal Cannula 2 11/06/16 00:15 127 24 84/51 100 Nasal Cannula 2 11/06/16 00:00 97.4 122 25 101/55 100 11/06/16 00:00 112 11/05/16 23:52 127 20 84/51 100 11/05/16 23:30 115 20 85/53 98 11/05/16 23:04 124 20 109/56 100 11/05/16 23:03 120 24 85/47 100 11/05/16 20:21 97.8 101 20 114/55 100 11/05/16 19:10 118 20 106/59 100 Room Air 11/05/16 18:05 122 20 104/55 100 Room Air 11/05/16 17:47 113 20 106/64 Room Air I/O 1/9/17 1/07/1411/05/16 11/06/16 11/06/16 11/06/16 06:59 14:59 22:59 06:59 14:59 22:59 Intake Total 480 ml 1731 ml Output Total 2700 ml Balance 480 ml -969 ml Intake IV Total 631 ml Packed Cells 480 ml 1100 ml Output Urine Total 750 ml Stool Total 1500 ml Gastric Drainage Total 150 ml Emesis 300 ml # Bowel Movements 3 Laboratory Laboratory Tests Test 11/05/16 11/05/16 11/05/16 11/06/16 16:50 18:03 21:25 00:50 Blood Type O POSITIVE O POSITIVE Crossmatch Leukocyte-Reduced Red Blood Cells Blood Bank Comment Hemoglobin 8.7 6.3 Hematocrit 26.0 19.1 Test 11/06/16 11/06/16 11/06/16 11/06/16 00:58 01:00 02:40 03:50 Blood Type O POSITIVE Crossmatch Leukocyte-Reduced Red Blood Cells Blood Bank Comment Nasal Screen MRSA (PCR) NEGATIVE Hemoglobin 8.4 Hematocrit 24.9 Blood Gas Puncture Site ART LINE Blood Gas Patient Temperature 98.6 Blood Gas HCO3 18 Blood Gas Base Excess -6.1 Blood Gas Oxygen Saturation 98 Arterial Blood pH 7.37 Arterial Blood Partial 33 Pressure CO2 Arterial Blood Partial 193 Pressure O2 Arterial Blood Oxygen Content 12.0 Arterial Blood 0.9 Carboxyhemoglobin Arterial Blood Methemoglobin 0.8 Blood Gas Hemoglobin 8.4 Oxygen Delivery Device VENTILATOR Blood Gas Ventilator Setting PRVC/AC Blood Gas Inspired Oxygen 50 Test 11/06/16 11/06/16 05:55 12:00 White Blood Count 20.5 Red Blood Count 3.35 Hemoglobin 9.3 8.4 Hematocrit 27.9 25.1 Mean Corpuscular Volume 83.1 Mean Corpuscular Hemoglobin 27.9 Mean Corpuscular Hemoglobin 33.5 Concent Red Cell Distribution Width 14.9 Platelet Count 125 Mean Platelet Volume 10.0 Prothrombin Time 11.8 Prothromb Time International 1.1 Ratio Activated Partial 23.4 Thromboplast Time Imaging Last Impressions Chest X-Ray 11/06/16 0000 Signed Impressions: Service Date/Time: Sunday, November 06, 2016 02:15 - CONCLUSION: ETT 3 cm above cornelius. Camacho Walton MD Abdomen/Pelvis CT 11/05/16 0000 Signed Impressions: Service Date/Time: Saturday, November 05, 2016 14:07 - CONCLUSION: Appendiceal wall thickening with the appendix measuring 1.2 cm in transverse diameter. No evidence of appendicolith, adjacent fat stranding or free fluid. These findings may represent an early appendicitis. Correlate for right lower quadrant pain.. Kori Livingston MD Physical Exam HEENT: Normocephalic; atraumatic; no jaundice CHEST: CTA CARDIAC: RRR ABDOMEN: Soft, nondistended, nontender; no hepatosplenomegaly; bowel sounds are present in all four quadrants. NGT to LIWS- greenish brown drainage. No rectal bleeding at this time. EXTREMITIES: No clubbing, cyanosis, or edema. SKIN: Normal; no rash; no jaundice. 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 (Bre Woodward) Assessment and Plan Plan ASSESSMENT: - Hematochezia with BRBPR. He has GERD and takes omeprazole 20mg po daily. He also took 2 ASA over the weekend. He denies any hx of GIB and has never had a colonoscopy. CT Abdomen and pelvis (11/05/16)----> Appendiceal wall thickening with the appendix measuring 1.2 cm in transverse diameter. No evidence of appendicolith, adjacent fat stranding or free fluid. These findings may represent an early appendicitis. Of note, his WBC is normal. Pt had significant lower GI bleeding yesterday, Nurse reports no active bleeding today. S/P 6 units PRBC, HH stable at this time at 8.4/25.1. Did not tolerate the bowel prep last night, had vomiting with this. Received call from Dr. Sanchez earlier today stating that patient was interested in a second opinion. However, they have now changed their minds. D/W patient's family reason for postponement of procedure today- did not tolerate the prep and it we may not be able to visualize his colonic mucosa. Explained to family plan to prep today and schedule for tomorrow. All questions answered. They would like to proceed with egd/colonoscopy in am. - Anemia secondary to acute blood loss. NGT to LIWS with brownish-greenish gastric secretions. S/P 5 units PRBC. HH 8.4/25.1. - Abnormal imaging on CT scan. (11/05/16)----> Appendiceal wall thickening with the appendix measuring 1.2 cm in transverse diameter. No evidence of appendicolith, adjacent fat stranding or free fluid. These findings may represent an early appendicitis. Of note, his WBC is normal. - Syncopal episode, while trying to go to the BR in ER, no apparent injury - GERD, PPI - Intubated for airway protection. PLAN: - Plan for EGD/Colonoscopy in am - Obtain consents - NPO after MN - Bowel prep today - PPI gtt - Monitor HH - Transfuse as necessary - CBC, CMP in am - Further recommendations to follow based on results of above - Pt seen and examined by Dr. Erwin and myself and this note is written on his behalf \ ADDENDUM. H/H dropped to 7.2/22.7. Tachycardic with a syncopal episode. Will order 2 units of PRBC (Bre Woodward) Physician Comments Patient seen and examined Agree with above Continue with current supportive care Monitor labs and transfuse as needed Plan for EGD and a colonoscopy tomorrow (Shaan Erwin MD) Bre Woodward Nov 06, 2016 16:26 Shaan Erwin MD Nov 06, 2016 21:42
[2016-11-06] MEDS ORDERED: MAGNESIUM CITRATE SOLN 300 ML BTL PO ONE (17:00)
[2016-11-06] MEDS ORDERED: PEG (High)/E-LYTE SOLN 4000 ML BTL PO ONE (17:00)
[2016-11-06 19:01] LABS: HEMATOCRIT 23.1 % (39.0-51.0); MEAN CELL VOLUME 83.4 FL (80.0-100.0); MEAN CORPUSCULAR HEMOGLOBIN 28.4 PG (27.0-34.0); MEAN CORPUSCULAR HGB CONC 34.1 % (32.0-36.0); PLATELET COUNT 113 TH/MM3 (150-450); RED BLOOD COUNT 2.77 MIL/MM3 (4.50-5.90); RED CELL DISTRIBUTION WIDTH 15.2 % (11.6-17.2); WHITE BLOOD COUNT 30.2 TH/MM3 (4.0-11.0)
[2016-11-06 19:03] LABS: REVIEW FLAG FINAL
[2016-11-06] MEDS: fentaNYL 2,500 MCG/NS 250 ML IV SCH (22:58)
[2016-11-06] MEDS: NOREPINEPHRINE 4 MG/D5W 250 ML IV SCH (22:58)
[2016-11-07] VITALS (18 sets, daily range): BP systolic 98–132; BP diastolic 46–63; PULSE 83–102; RESP 14; TEMP 99–101.4; O2SAT 98–100
[2016-11-07] LABS: HEMATOCRIT 25.6 % (39.0-51.0); REVIEW FLAG FINAL
[2016-11-07] MEDS: NS + KCL 20 MEQ INJ 1,000 ML IV SCH ×5 (03:46→18:00)
[2016-11-07] MEDS ORDERED: MAGNESIUM CITRATE SOLN 300 ML BTL PO ONE (05:00)
[2016-11-07 05:13] LABS: AUTOMATED NEUTROPHIL # 15.8 TH/MM3 (1.8-7.7); BASOPHIL # 0.1 TH/MM3 (0-0.2); BASOPHIL % 0.3 % (0.0-2.0); EOSINOPHIL % 0.2 % (0.0-4.0); HEMATOCRIT 22.6 % (39.0-51.0); LYMPHOCYTE # 3.6 TH/MM3 (1.0-4.8); MEAN CELL VOLUME 84.6 FL (80.0-100.0); MEAN CORPUSCULAR HEMOGLOBIN 28.2 PG (27.0-34.0); MEAN CORPUSCULAR HGB CONC 33.3 % (32.0-36.0); MONO % 7.3 % (0.0-8.0); NEUT % 75.2 % (16.0-70.0); PLATELET COUNT 80 TH/MM3 (150-450); RED BLOOD COUNT 2.67 MIL/MM3 (4.50-5.90)
[2016-11-07 05:31] LABS: BLOOD GAS BASE EXCESS -3.8 mmol/L (-2-2); BLOOD GAS CARBOXYHEMOGLOBIN 1.3 % (0-4); BLOOD GAS HCO3 21 mmol/L (22-26); BLOOD GAS O2 HGB SATURATION 97 % (90-100); BLOOD GAS OXYGEN CONTENT 10.8 Vol % (12.0-20.0); BLOOD GAS PCO2 43 mmHg (38-42); BLOOD GAS PO2 148 mmHg (61-120); BLOOD GAS TOTAL HGB 7.7 G/DL (12.0-16.0); CRITICAL VALUE NO; TEMP CORR TO 98.6
[2016-11-07 05:32] LABS: DRAW SITE ART LINE; FIO2 40 %; NUMBER OF ARTERIAL PUNCTURES 0; OXYGEN DEVICE VENTILATOR; STAT NO; ULNAR PULSE PRESENT
--- NOTE | 2016-11-07 05:43 | RADRPT ---
EXAM DATE/TIME: 11/07/2016 04:51 [facility] COMPARISON: CHEST SINGLE AP, November 06, 2016, 2:15. INDICATIONS : Respiratory failure MEDICAL HISTORY : None. SURGICAL HISTORY : None. ENCOUNTER: Subsequent ACUITY: 3 days PAIN SCORE: Non-responsive. LOCATION: Bilateral chest FINDINGS: A single view of the chest demonstrates minimal bibasilar patchy densities. Endotracheal tube, left s ubclavian central line and nasogastric tube are stable position. The cardiomediastinal contours are unremarkable. Osseous structures are intact. CONCLUSION: 1. Minimal bibasilar patchy densities. 2. Support lines and tubes stable in position. Camacho Walton MD on November 07, 2016 at 5:40 Board Certified Radiologist. This report was verified electronically.
[2016-11-07 05:49] LABS: ALKALINE PHOSPHATASE 21 U/L (45-117); ALT (GPT) 23 U/L (12-78); ANION GAP 7 MEQ/L (5-15); AST (GOT) 15 U/L (15-37); BICARBONATE 23.8 MEQ/L (21.0-32.0); BLOOD UREA NITROGEN 27 MG/DL (7-18); CHLORIDE 111 MEQ/L (98-107); GLOMERULAR FILTRATION RATE 86 ML/MIN (>89); MAGNESIUM 1.7 MG/DL (1.5-2.5); POTASSIUM 4.4 MEQ/L (3.5-5.1); SODIUM (NA) 142 MEQ/L (136-145); TOTAL BILIRUBIN ADULT 0.6 MG/DL (0.2-1.0)
[2016-11-07] MEDS: PANTOPRAZOLE INJ 80 MG in SODIUM CHLORIDE 0.9% INJ 100 ML IV SCH ×2 (06:01→17:43)
[2016-11-07 06:28] LABS: HEMO FLAGS AUTO DIFF
[2016-11-07] MEDS: ALBUMIN HUMAN 5% 25 GM/500 ML BOTTLE IV SCH ×2 (10:10→20:30)
[2016-11-07] MEDS: NOREPINEPHRINE 4 MG/D5W 250 ML IV SCH ×2 (10:30→13:36)
[2016-11-07 10:35] LABS: PLATELET ESTIMATE SMEAR LOW (NORMAL); PLATELET MORPHOLOGY NORMAL (NORMAL); SCAN/DIFF AUTO DIFF CONFIRMED
[2016-11-07 11:34] LABS: HEMATOCRIT 24.3 % (39.0-51.0)
[2016-11-07 11:35] LABS: REVIEW FLAG FINAL
[2016-11-07] MEDS ORDERED: PROPOFOL 200 MG/20 ML AMP IV ONE (11:44)
--- NOTE | 2016-11-07 13:14 | PD.PROCEDR ---
GI Procedure REFERRING PHYSICIAN Dr. Martínez PROCEDURE PERFORMED EGD followed by colonoscopy INDICATION FOR PROCEDURE GI bleed PROCEDURE: The procedure, risks and benefits were discussed with Mr. Butler and informed consent was obtained. Anesthesia sedated him with Diprivan. He was placed in the left lateral decubitus position. EGD: The Pentax videoscope was introduced through the oropharynx and advanced to the second portion of the duodenum under direct visualization. Retroflexion was performed in the stomach. FINDINGS: The esophagus this appeared to be unremarkable and within normal limits The stomach there was no blood seen in the stomach there was patchy erythema consistent with most likely NG tube suction injury no ulcers no erosions The duodenum this too appeared to be unremarkable and within normal limits Colonoscopy: The Pentax videoscope was introduced through the rectum and advanced to cecum where the ileocecal valve and appendiceal orifice were identified. Retroflexion was performed in the rectum. Colonic prep was poor FINDINGS: Colonic withdrawal time greater than 6 minutes. There was blood noted throughout the colon it was maroonish in color I flushed as much as I can colonic mucosa appeared to be unremarkable no obvious diverticuli were seen no pooling of blood was seen suggesting no active bleed at this point but visualization was poor ESTIMATED BLOOD LOSS: There was a lot of blood in the colon but no active bleeding was seen SPECIMENS REMOVED: None COMPLICATIONS: None IMPRESSION: Lower GI bleed unclear source Mild gastritis secondary to NG tube suction trauma PLAN: Will keep 2 units of blood on hold at all times Will get a bleeding scan We'll repeat colonoscopy tomorrow with additional prepping Continue with current supportive measures The case was discussed extensively with family members Dr. Sanchez and nursing staff Consideration is either small bowel bleed or unidentified colonic lesion most likely in the proximal portions of the colon Keep the patient intubated this point and use an NG tube for prepping Shaan Erwin MD Nov 07, 2016 13:14
[2016-11-07] MEDS ORDERED: LIDOCAINE HCL 2% 100 MG/5 ML SYRINGE ONE (13:34)
[2016-11-07] MEDS ORDERED: EPINEPHrine HCL (1:10,000) 1 MG/10 ML SYRINGE ONE (13:34)
[2016-11-07] MEDS ORDERED: ATROPINE SULFATE 1 MG/10 ML SYRINGE ONE (13:34)
[2016-11-07] MEDS: fentaNYL 2,500 MCG/NS 250 ML IV SCH (13:37)
[2016-11-07] MEDS: VASOPRESSIN INJ 40 UNITS in DEXTROSE 5% IN WATER 100ML INJ 98 ML IV SCH ×2 (13:48)
[2016-11-07] MEDS ORDERED: PEG (High)/E-LYTE SOLN 4000 ML BTL PO ONE (14:00)
--- NOTE | 2016-11-07 17:25 | RADRPT ---
EXAM DATE/TIME: 11/07/2016 14:45 [facility] COMPARISON: No previous studies available for comparison. INDICATIONS : Rectal bleeding and lower abdominal pain. DOSE: 20.2 mCi Tc99m Ultratag labeled red blood cells IV IMAGIN hrs MEDICAL HISTORY : Fatigue. SURGICAL HISTORY : None. ENCOUNTER: Initial ACUITY: 2 days PAIN SCALE: 4/10 LOCATION: Bilateral Abdomen. TECHNIQUE: Following the modified in vitro labeling of autologous red cells, dynamic continuous images were acqu ired for the specified interval. FINDINGS: BIODISTRIBUTION: There is a very good labeling of red cells without significant uptake in the gastric wall. There is good delineation of the blood pool of the spleen and abdominal vessels. BLEEDING: No episodes of active GI bleeding are observed during specified interval of continuous observation. CONCLUSION: No active GI bleeding is identified during the examination. Alex Bro MD on November 07, 2016 at 17:23 Board Certified Radiologist. This report was verified electronically.
--- NOTE | 2016-11-07 17:33 | HHI.CCPN ---
Subjective Remarks/Hospital Course 60 y/o man presented to ED after several episodes of rectal bleeding associated with lower abdominal pain. Initially hypotensive low 80s while anxious and frightened. Had postural syncope after two units PRBCs. Hgb drop 2.5 gms and now is hypotensive again with sustained tachycardia. Appears pale. He has vomited twice now, rust colored, not gross blood.Transferred rapidly to ICU and lines immediately placed for ongoing resuscitation. CT Scan abdomen/pelvis benign except for possibly thickened appendix. Objective Vital Signs Date Time Temp Pulse Resp B/P Pulse Ox O2 Delivery O2 Flow Rate FiO2 11/07/16 16:00 99.7 86 14 132/54 100 11/07/16 16:00 40 11/06/16 01:06 Nasal Cannula 2 Intake and Output 11/06/16 11/06/16 11/07/16 08:00 16:00 00:00 Intake Total 1731 ml 5991 ml 3109 ml Output Total 2300 ml 400 ml 1000 ml Balance -569 ml 5591 ml 2109 ml Result Diagram: 11/07/16 1122 11/07/16 0455 Other Results Laboratory Tests Test 11/07/16 05:21 Blood Gas Puncture Site ART LINE Blood Gas Patient Temperature 98.6 Blood Gas HCO3 21 mmol/L (22-26) Blood Gas Base Excess -3.8 mmol/L (-2-2) Blood Gas Oxygen Saturation 97 % (90-100) Arterial Blood pH 7.32 (7.380-7.420) Arterial Blood Partial 43 mmHg (38-42) Pressure CO2 Arterial Blood Partial 148 mmHg Pressure O2 (61-120) Arterial Blood Oxygen Content 10.8 Vol % (12.0-20.0) Arterial Blood 1.3 % (0-4) Carboxyhemoglobin Arterial Blood Methemoglobin 1.0 % (0-2) Blood Gas Hemoglobin 7.7 G/DL (12.0-16.0) Oxygen Delivery Device VENTILATOR Blood Gas Ventilator Setting SEE COMMENT Blood Gas Inspired Oxygen 40 % Objective Remarks P 128, SBP 82, R 20, sats 97% 2L General: Ill-appearing man in considerable distress. Head: Atraumatic, pale. Neck: Supple, airway patent. Lungs: Clear, no wheezes or crackles. Heart: NL S1S2, no m,r. Neck veins flat when supine. Fem pulse 3+ laury. Abdomen: Soft. No tenderness to palpation but complains of lower abdominal pain. No peritoneal guarding. BS active. No masses. No AAA. Extremities: Tepid, poorly perfused. Skin: Pale, damp. Neuro: Slight language barrier but appears O X 3. Cooperative. Moves 4 limbs spontaneously. A/P Problem List: (1) Hypovolemic shock ICD Code: R57.1 Status: Acute (2) Rectal bleeding ICD Code: K62.5 Status: Acute (3) Symptomatic anemia ICD Code: D64.9 Status: Acute (4) Syncope ICD Code: R55 Status: Acute Assessment and Plan Plan: CV: - hypotension - posthemorrhagic - monitor SVV - aggressive i.v. fluid resuscitation - vasopressin - Levophed as needed to keep MAP > 65 RESP: - intubated for an airway protection - start wean when hemodynamically stable NEURO: - MS 4 mg iv prn. - Fentanyl gtt - Versed gtt - D/C propofol due to hypotension RENAL: - good urine output - Follow creat/bun, aggressive hydration. GI: - Bowel prep if repeat per GI request - Upper and lower Endoscopy w/o obvious source of bleed - NM bleeding scan - Place NG to LIS. Protonix. : - Lange for hourly output. ID: - Cultures for fevers - Tylenol PRN HEME: - serial H&H - transfuse as needed to keep Hg > 7 ENDO: - NA PX: SCDs, protonix Overall impression: Lower vs. small bowel GI hemorrhage and critically ill with hemorrhagic shock. Bleeding still active and CVP 0. Sustained tachycardia implicates ongoing hemorrhage. Prognosis guarded. Critical Care 35 minute aside from procedures. Problem Qualifiers (1) Syncope: Qualified Code: R55 - Syncope, unspecified syncope type Lennox Sanchez MD Nov 07, 2016 17:33
[2016-11-07 18:16] LABS: REVIEW FLAG FINAL
[2016-11-07] MEDS ORDERED: ACETAMINOPHEN 650 MG/20.3 ML UDC PO PRN (19:30)
[2016-11-07 20:08] LABS: BLOOD, URINE NEG (NEG); COMMENT (UR) CULT NOT INDICATED; CULTURE IF INDICATED CULT NOT INDICATED; GLUCOSE,URINE NEG (NEG); KETONE, URINE NEG (NEG); MUCUS URINE FEW /lpf (OCC); NITRITE,URINE NEG (NEG); SQUAMOUS EPITHELIAL CELL URINE <1 /hpf (0-5); URINE COLOR LIGHT-YELLOW (YELLW/STRAW)
[2016-11-07] MEDS: ACETAMINOPHEN 650 MG/20.3 ML UDC TUBE PRN (23:22)
[2016-11-08] VITALS (19 sets, daily range): BP systolic 118–157; BP diastolic 49–56; PULSE 70–127; RESP 13–18; TEMP 98.8–100.8; O2SAT 92–100
[2016-11-08 00:37] LABS: HEMATOCRIT 22.2 % (39.0-51.0); REVIEW FLAG FINAL
[2016-11-08] MEDS: NS + KCL 20 MEQ INJ 1,000 ML IV SCH ×3 (03:45→23:15)
--- NOTE | 2016-11-08 05:47 | RADRPT ---
EXAM DATE/TIME: 11/08/2016 05:07 [facility] COMPARISON: CHEST SINGLE AP, November 07, 2016, 4:51. INDICATIONS : Evaluate for pulmonary disease. MEDICAL HISTORY : None. SURGICAL HISTORY : None. ENCOUNTER: Subsequent ACUITY: 4 - 6 days PAIN SCORE: Non-responsive. LOCATION: Bilateral chest FINDINGS: A single view of the chest demonstrates bibasilar densities and pulmonary vascular congestion. Heart enlarged. Endotracheal tube, nasogastric tube and left subclavian central line in stable position. CONCLUSION: Slight worsening bibasilar densities. Pulmonary vascular congestion. Camacho Walton MD on November 08, 2016 at 5:45 Board Certified Radiologist. This report was verified electronically.
[2016-11-08 05:59] LABS: BLOOD GAS BASE EXCESS -0.6 mmol/L (-2-2); BLOOD GAS CARBOXYHEMOGLOBIN 1.6 % (0-4); BLOOD GAS HCO3 24 mmol/L (22-26); BLOOD GAS METHEMOGLOBIN 0.8 % (0-2); BLOOD GAS O2 HGB SATURATION 95 % (90-100); BLOOD GAS OXYGEN CONTENT 11.6 Vol % (12.0-20.0); BLOOD GAS PCO2 44 mmHg (38-42); BLOOD GAS PO2 93 mmHg (61-120); BLOOD GAS TOTAL HGB 8.5 G/DL (12.0-16.0); CRITICAL VALUE NO; OXYGEN DEVICE VENTILATOR; TEMP CORR TO 98.6
[2016-11-08 06:00] LABS: DRAW SITE ART LINE; FIO2 40 %; STAT NO; VENT SETTINGS PRVC/AC
[2016-11-08 06:22] LABS: AUTOMATED NEUTROPHIL # 13.3 TH/MM3 (1.8-7.7); BASOPHIL % 0.3 % (0.0-2.0); EOSINOPHIL # 0.2 TH/MM3 (0-0.4); EOSINOPHIL % 1.3 % (0.0-4.0); HEMATOCRIT 25.5 % (39.0-51.0); LYMPH % 13.9 % (9.0-44.0); LYMPHOCYTE # 2.4 TH/MM3 (1.0-4.8); MEAN CELL VOLUME 84.5 FL (80.0-100.0); MEAN CORPUSCULAR HEMOGLOBIN 28.7 PG (27.0-34.0); MEAN CORPUSCULAR HGB CONC 33.9 % (32.0-36.0); MONO % 6.5 % (0.0-8.0); PLATELET COUNT 83 TH/MM3 (150-450); RED BLOOD COUNT 3.02 MIL/MM3 (4.50-5.90); RED CELL DISTRIBUTION WIDTH 15.2 % (11.6-17.2); WHITE BLOOD COUNT 17.1 TH/MM3 (4.0-11.0)
[2016-11-08 06:25] LABS: HEMO FLAGS AUTO DIFF
--- NOTE | 2016-11-08 06:29 | HHI.CCPN ---
Subjective Remarks/Hospital Course 60 y/o man presented to ED after several episodes of rectal bleeding associated with lower abdominal pain. Initially hypotensive low 80s while anxious and frightened. Had postural syncope after two units PRBCs. Hgb drop 2.5 gms and now is hypotensive again with sustained tachycardia. Appears pale. He has vomited twice, rust colored, not gross blood. Transferred rapidly to ICU and lines immediately placed for ongoing resuscitation. CT Scan abdomen/pelvis benign except for possibly thickened appendix. Objective Vital Signs Date Time Temp Pulse Resp B/P Pulse Ox O2 Delivery O2 Flow Rate FiO2 11/08/16 04:12 100 40 11/08/16 04:00 99.4 70 15 134/56 11/06/16 01:06 Nasal Cannula 2 Intake and Output 11/07/16 11/07/16 11/08/16 08:00 16:00 00:00 Intake Total 3451 ml 2941 ml 2953 ml Output Total 1300 ml 1350 ml 1700 ml Balance 2151 ml 1591 ml 1253 ml Result Diagram: 11/07/16 2255 11/07/16 0455 Other Results Laboratory Tests Test 11/08/16 05:49 Blood Gas Puncture Site ART LINE Blood Gas Patient Temperature 98.6 Blood Gas HCO3 24 mmol/L (22-26) Blood Gas Base Excess -0.6 mmol/L (-2-2) Blood Gas Oxygen Saturation 95 % (90-100) Arterial Blood pH 7.36 (7.380-7.420) Arterial Blood Partial 44 mmHg (38-42) Pressure CO2 Arterial Blood Partial 93 mmHg Pressure O2 (61-120) Arterial Blood Oxygen Content 11.6 Vol % (12.0-20.0) Arterial Blood 1.6 % (0-4) Carboxyhemoglobin Arterial Blood Methemoglobin 0.8 % (0-2) Blood Gas Hemoglobin 8.5 G/DL (12.0-16.0) Oxygen Delivery Device VENTILATOR Blood Gas Ventilator Setting PRVC/AC Blood Gas Inspired Oxygen 40 % Objective Remarks Vital Signs Date Time Temp Pulse Resp B/P Pulse Ox O2 Delivery O2 Flow Rate FiO2 11/08/16 04:12 100 40 11/08/16 04:00 99.4 70 15 134/56 11/06/16 01:06 Nasal Cannula 2 General: Ill-appearing man in considerable distress. Head: Atraumatic, pale. Neck: Supple, airway patent. Lungs: Clear, no wheezes or crackles. Heart: NL S1S2, no m,r. Neck veins flat when supine. Fem pulse 3+ laury. Abdomen: Soft. No tenderness to palpation but complains of lower abdominal pain. No peritoneal guarding. BS active. No masses. No AAA. Extremities: Tepid, poorly perfused. Skin: Pale, damp. Neuro: Slight language barrier but appears O X 3. Cooperative. Moves 4 limbs spontaneously. A/P Problem List: (1) Hypovolemic shock ICD Code: R57.1 Status: Acute (2) Rectal bleeding ICD Code: K62.5 Status: Acute (3) Symptomatic anemia ICD Code: D64.9 Status: Acute (4) Syncope ICD Code: R55 Status: Acute Assessment and Plan Plan: CV: - hypotension - posthemorrhagic - monitor SVV with a goal 10-15 - aggressive i.v.crystalloid and colloid fluids resuscitation - vasopressin at 0.04 - Levophed as needed to keep MAP > 65 RESP: - intubated for an airway protection - start wean when hemodynamically stable - mian bundle NEURO: - MS 4 mg iv prn. - Fentanyl gtt - Versed gtt - hold propofol due to hypotension RENAL: - good urine output - Follow creat/bun, aggressive hydration - electrolyte replacement protocol. GI: - Bowel prep repeated last night per GI request - Upper and lower Endoscopy w/o obvious source of bleed 11/07 - repeat endoscopies today - NM bleeding scan negative - Continue NG to LIS. Protonix. : - Lange for hourly output. ID: - Cultures for fevers - Tylenol PRN HEME: - serial H&H - transfuse as needed to keep Hg > 7 ENDO: - NA PX: SCDs, protonix Overall impression: Lower vs. small bowel GI hemorrhage and critically ill with hemorrhagic shock. Bleeding still active and CVP 0. Sustained tachycardia implicates ongoing hemorrhage. Prognosis guarded. Critical Care 35 minute aside from procedures. Problem Qualifiers (1) Syncope: Qualified Code: R55 - Syncope, unspecified syncope type Lennox Sanchez MD Nov 08, 2016 06:29
[2016-11-08] MEDS: fentaNYL 2,500 MCG/NS 250 ML IV SCH (06:46)
[2016-11-08] MEDS: PANTOPRAZOLE INJ 80 MG in SODIUM CHLORIDE 0.9% INJ 100 ML IV SCH ×2 (06:46→14:37)
[2016-11-08 07:01] LABS: ALKALINE PHOSPHATASE 30 U/L (45-117); ALT (GPT) 18 U/L (12-78); ANION GAP 6 MEQ/L (5-15); AST (GOT) 19 U/L (15-37); BICARBONATE 25.6 MEQ/L (21.0-32.0); BLOOD UREA NITROGEN 13 MG/DL (7-18); CHLORIDE 105 MEQ/L (98-107); GLOMERULAR FILTRATION RATE 118 ML/MIN (>89); MAGNESIUM 1.9 MG/DL (1.5-2.5); POTASSIUM 3.6 MEQ/L (3.5-5.1); SODIUM (NA) 137 MEQ/L (136-145); TOTAL BILIRUBIN ADULT 1.6 MG/DL (0.2-1.0)
[2016-11-08] MEDS ORDERED: MAGNESIUM SULFATE INJ 2 GM in SODIUM CHLORIDE 0.9% INJ 96 ML IV PRN (07:45)
[2016-11-08] MEDS ORDERED: POTASSIUM CHLOR 20 MEQ PREMIX 100 ML IV PRN ×2 (07:45)
[2016-11-08] MEDS ORDERED: POTASSIUM CHLOR 40 MEQ PREMIX 100 ML IV PRN (07:45)
[2016-11-08] MEDS ORDERED: MAGNESIUM OXIDE 400 MG TAB PO PRN (07:45)
[2016-11-08] MEDS ORDERED: MAGNESIUM SULFATE INJ 4 GM in SODIUM CHLORIDE 0.9% INJ 92 ML IV PRN (07:45)
[2016-11-08] MEDS ORDERED: POTASSIUM CL 40 MEQ/30 ML LIQ UDC PO/TUBE PRN ×2 (07:45)
[2016-11-08] MEDS ORDERED: POTASSIUM PHOSPHATE MONOBASIC 500 MG TAB PO/TUBE PRN (07:45)
[2016-11-08] MEDS ORDERED: SODIUM PHOSPHATE INJ 30 MMOL in SODIUM CHLOR 0.9% 250 ML INJ 240 ML IV PRN (07:45)
[2016-11-08] MEDS ORDERED: POTASSIUM PHOSPHATE MONOBASIC 500 MG TAB PO PRN (07:45)
[2016-11-08 08:03] LABS: PLATELET ESTIMATE SMEAR LOW (NORMAL); PLATELET MORPHOLOGY NORMAL (NORMAL); SCAN/DIFF AUTO DIFF CONFIRMED
[2016-11-08] MEDS: ALBUMIN HUMAN 5% 25 GM/500 ML BOTTLE IV SCH ×2 (09:22→23:14)
[2016-11-08] MEDS ORDERED: PROPOFOL 200 MG/20 ML AMP IV ONE (10:44)
--- NOTE | 2016-11-08 11:59 | PD.PROCEDR ---
GI Procedure REFERRING PHYSICIAN Dr Sanchez PROCEDURE PERFORMED Colonoscopy INDICATION FOR PROCEDURE GI bleed PROCEDURE: The procedure, risks and benefits were discussed with Mr. Butler and informed consent was obtained. Anesthesia sedated him with Diprivan. He was placed in the left lateral decubitus position. Colonoscopy: The Pentax videoscope was introduced through the rectum and advanced to cecum where the ileocecal valve and appendiceal orifice were identified. Retroflexion was performed in the rectum. Colonic prep was good FINDINGS: Colonic withdrawal time over 6 minutes as the scope was slowly withdrawn colonic mucosa was carefully inspected after reaching the cecum I was able to intubate the terminal ileum and I was able to advance the scope well into the terminal ileum and this appeared to be unremarkable so did the colon and retroflexion and rectal examination no active bleeding was seen no lesions whatsoever were seen ESTIMATED BLOOD LOSS: None SPECIMENS REMOVED: None COMPLICATIONS: None IMPRESSION: Normal terminal ileum and normal colonoscopy PLAN: Continue present supportive care Monitor labs and transfuse as needed Recommend a small bowel follow-through was the patient is extubated Patient may be extubated from a GI perspective Consider capsule endoscopy as an outpatient Case discussed at length with the family and with Shaan Sales MD Nov 08, 2016 11:59
[2016-11-08] MEDS ORDERED: MAGNESIUM CITRATE SOLN 300 ML BTL PO SCH (12:00)
[2016-11-08 12:58] LABS: HEMATOCRIT 24.6 % (39.0-51.0); REVIEW FLAG FINAL
[2016-11-08] MEDS: POTASSIUM PHOSPHATE INJ 30 MMOL in SODIUM CHLOR 0.9% 250 ML INJ 250 ML IV PRN (13:10)
[2016-11-08] MEDS ORDERED: METOPROLOL TARTRATE 5 MG/5 ML VIAL IV PUSH ONE (14:45)
[2016-11-08] MEDS: LABETALOL HCL 100 MG/20 ML VIAL IV PUSH PRN (18:10)
[2016-11-09] VITALS (16 sets, daily range): BP systolic 108–165; BP diastolic 54–71; PULSE 62–118; RESP 14–24; TEMP 98.4–99.6; O2SAT 94–100
[2016-11-09] MEDS: PANTOPRAZOLE INJ 80 MG in SODIUM CHLORIDE 0.9% INJ 100 ML IV SCH ×3 (01:29→21:38)
[2016-11-09 02:16] LABS: AUTOMATED NEUTROPHIL # 14.7 TH/MM3 (1.8-7.7); BASOPHIL % 0.2 % (0.0-2.0); EOSINOPHIL % 0.2 % (0.0-4.0); HEMATOCRIT 25.4 % (39.0-51.0); HEMO FLAGS DIFF FINAL; LYMPH % 12.2 % (9.0-44.0); LYMPHOCYTE # 2.2 TH/MM3 (1.0-4.8); MEAN CELL VOLUME 85.2 FL (80.0-100.0); MEAN CORPUSCULAR HEMOGLOBIN 28.8 PG (27.0-34.0); MEAN CORPUSCULAR HGB CONC 33.9 % (32.0-36.0); MONO % 6.6 % (0.0-8.0); NEUT % 80.8 % (16.0-70.0); PLATELET COUNT 123 TH/MM3 (150-450); RED BLOOD COUNT 2.98 MIL/MM3 (4.50-5.90); RED CELL DISTRIBUTION WIDTH 15.3 % (11.6-17.2); WHITE BLOOD COUNT 18.2 TH/MM3 (4.0-11.0)
[2016-11-09 02:43] LABS: ALKALINE PHOSPHATASE 49 U/L (45-117); ALT (GPT) 20 U/L (12-78); ANION GAP 8 MEQ/L (5-15); AST (GOT) 23 U/L (15-37); BICARBONATE 29.4 MEQ/L (21.0-32.0); BLOOD UREA NITROGEN 10 MG/DL (7-18); CHLORIDE 108 MEQ/L (98-107); GLOMERULAR FILTRATION RATE 96 ML/MIN (>89); POTASSIUM 3.8 MEQ/L (3.5-5.1); SODIUM (NA) 145 MEQ/L (136-145); TOTAL BILIRUBIN ADULT 1.3 MG/DL (0.2-1.0)
[2016-11-09] MEDS: PROPOFOL 1000 MG/100 ML INJ 100 ML IV SCH (05:13)
[2016-11-09 05:36] LABS: BLOOD GAS BASE EXCESS 1.1 mmol/L (-2-2); BLOOD GAS CARBOXYHEMOGLOBIN 1.5 % (0-4); BLOOD GAS HCO3 26 mmol/L (22-26); BLOOD GAS METHEMOGLOBIN 0.9 % (0-2); BLOOD GAS O2 HGB SATURATION 94 % (90-100); BLOOD GAS OXYGEN CONTENT 11.9 Vol % (12.0-20.0); BLOOD GAS PCO2 45 mmHg (38-42); BLOOD GAS PO2 86 mmHg (61-120); BLOOD GAS TOTAL HGB 8.9 G/DL (12.0-16.0); CRITICAL VALUE NO; OXYGEN DEVICE VENTILATOR; TEMP CORR TO 98.6
[2016-11-09 05:37] LABS: DRAW SITE ART LINE; FIO2 40 %; STAT NO; VENT SETTINGS PRVC/AC
--- NOTE | 2016-11-09 06:28 | RADRPT ---
EXAM DATE/TIME: 11/09/2016 05:50 [facility] COMPARISON: CHEST SINGLE AP, November 08, 2016, 5:07. INDICATIONS : Evaluate after respiratory failure. MEDICAL HISTORY : None. SURGICAL HISTORY : None. ENCOUNTER: Subsequent ACUITY: 1 week PAIN SCORE: Non-responsive. LOCATION: Bilateral chest FINDINGS: The cardiac silhouette is enlarged in transverse diameter. There is bilateral lower lobe atelectasis versus pneumonia left greater than right. The findings are similar to the prior exam. Support lines and tubes are in satisfactory position. CONCLUSION: 1. Cardiomegaly 2. Bilateral lower lobe atelectasis versus pneumonia. There has been no significant change when hank red to the prior exam. Bear King MD on November 09, 2016 at 6:26 Board Certified Radiologist. This report was verified electronically.
[2016-11-09] MEDS: LABETALOL HCL 100 MG/20 ML VIAL IV PUSH PRN ×2 (07:48→08:32)
[2016-11-09] MEDS: VASOPRESSIN INJ 40 UNITS in DEXTROSE 5% IN WATER 100ML INJ 98 ML IV SCH ×2 (07:50)
[2016-11-09] MEDS: NS + KCL 20 MEQ INJ 1,000 ML IV SCH ×2 (07:50→17:20)
[2016-11-09] MEDS: ALBUMIN HUMAN 5% 25 GM/500 ML BOTTLE IV SCH ×2 (07:50→22:00)
[2016-11-09] MEDS: hydrALAZINE HCL 20 MG/ML VIAL IV PUSH PRN ×2 (09:06→19:59)
[2016-11-09] MEDS ORDERED: RESP: ALBUTEROL 2.5 MG/IPRATROPIUM 0.5 MG NEB (PRN) NEB (09:45)
[2016-11-09] MEDS: MORPHINE SULFATE 4 MG/ML INJ IV PUSH PRN ×2 (10:01→22:30)
--- NOTE | 2016-11-09 10:41 | HHI.CCPN ---
Subjective Remarks/Hospital Course 60 y/o man presented to ED after several episodes of rectal bleeding associated with lower abdominal pain. Initially hypotensive low 80s while anxious and frightened. Had postural syncope after two units PRBCs. Hgb drop 2.5 gms and now is hypotensive again with sustained tachycardia. Appears pale. He has vomited twice, rust colored, not gross blood. Transferred rapidly to ICU and lines immediately placed for ongoing resuscitation. CT Scan abdomen/pelvis benign except for possibly thickened appendix. Objective Vital Signs Date Time Temp Pulse Resp B/P Pulse Ox O2 Delivery O2 Flow Rate FiO2 11/09/16 10:00 118 11/09/16 10:00 93 Venturi Mask 50 11/09/16 09:30 6.00 11/09/16 08:00 98.6 14 165/71 Intake and Output 11/08/16 11/08/16 11/09/16 08:00 16:00 00:00 Intake Total 4643 ml 2141 ml 1023 ml Output Total 800 ml 1450 ml 1400 ml Balance 3843 ml 691 ml -377 ml Result Diagram: 11/09/16 0200 11/09/16 0200 Other Results Laboratory Tests Test 11/09/16 05:26 Blood Gas Puncture Site ART LINE Blood Gas Patient Temperature 98.6 Blood Gas HCO3 26 mmol/L (22-26) Blood Gas Base Excess 1.1 mmol/L (-2-2) Blood Gas Oxygen Saturation 94 % (90-100) Arterial Blood pH 7.38 (7.380-7.420) Arterial Blood Partial 45 mmHg (38-42) Pressure CO2 Arterial Blood Partial 86 mmHg Pressure O2 (61-120) Arterial Blood Oxygen Content 11.9 Vol % (12.0-20.0) Arterial Blood 1.5 % (0-4) Carboxyhemoglobin Arterial Blood Methemoglobin 0.9 % (0-2) Blood Gas Hemoglobin 8.9 G/DL (12.0-16.0) Oxygen Delivery Device VENTILATOR Blood Gas Ventilator Setting PRVC/AC Blood Gas Inspired Oxygen 40 % Objective Remarks Vital Signs Date Time Temp Pulse Resp B/P Pulse Ox O2 Delivery O2 Flow Rate FiO2 11/08/16 04:12 100 40 11/08/16 04:00 99.4 70 15 134/56 11/06/16 01:06 Nasal Cannula 2 General: Ill-appearing man in considerable distress. Head: Atraumatic, pale. Neck: Supple, airway patent. Lungs: Clear, no wheezes or crackles. Heart: NL S1S2, no m,r. Neck veins flat when supine. Fem pulse 3+ laury. Abdomen: Soft. No tenderness to palpation but complains of lower abdominal pain. No peritoneal guarding. BS active. No masses. No AAA. Extremities: Tepid, poorly perfused. Skin: Pale, damp. Neuro: Slight language barrier but appears O X 3. Cooperative. Moves 4 limbs spontaneously. A/P Problem List: (1) Hypovolemic shock ICD Code: R57.1 Status: Acute (2) Rectal bleeding ICD Code: K62.5 Status: Acute (3) Symptomatic anemia ICD Code: D64.9 Status: Acute (4) Syncope ICD Code: R55 Status: Acute Assessment and Plan Plan: CV: - hypotension - posthemorrhagic - resolved - D/C Flowtrack - continue gentle i.v.crystalloid resuscitation - vasopressin at 0.04 off - Levophed off RESP: - intubated for an airway protection - tolerated SBT well - extubated NEURO: - MS 4 mg iv prn. - Fentanyl gtt D/C - Versed gtt D/C - Precedex gtt for anxiety and sedation RENAL: - good urine output - Follow creat/bun, aggressive hydration - electrolyte replacement protocol. GI: - Repet colonoscopy w/o sign of active bleeding - Upper and lower Endoscopy w/o obvious source of bleed 11/07 - NM bleeding scan negative - Continue NG to LIS. Protonix gtt - GI appreciated : - Lange for hourly output. ID: - Cultures for fevers - Tylenol PRN HEME: - serial H&H - transfuse as needed to keep Hg > 7 ENDO: - NA PX: SCDs, protonix Overall impression: Lower vs. small bowel GI hemorrhage and critically ill with hemorrhagic shock. Bleeding still active and CVP 0. Sustained tachycardia implicates ongoing hemorrhage. Prognosis guarded. Critical Care 35 minute aside from procedures. Problem Qualifiers (1) Syncope: Qualified Code: R55 - Syncope, unspecified syncope type Lennox Sanchez MD Nov 09, 2016 10:41
[2016-11-09] MEDS: DEXMEDETOMIDINE INJ 50 ML IV SCH ×3 (10:45→21:38)
[2016-11-09 11:42] LABS: HEMATOCRIT 27.7 % (39.0-51.0); MEAN CELL VOLUME 85.9 FL (80.0-100.0); MEAN CORPUSCULAR HEMOGLOBIN 28.6 PG (27.0-34.0); MEAN CORPUSCULAR HGB CONC 33.3 % (32.0-36.0); PLATELET COUNT 167 TH/MM3 (150-450); RED BLOOD COUNT 3.22 MIL/MM3 (4.50-5.90); RED CELL DISTRIBUTION WIDTH 15.7 % (11.6-17.2); REVIEW FLAG FINAL; WHITE BLOOD COUNT 20.6 TH/MM3 (4.0-11.0)
[2016-11-09] MEDS ORDERED: MAGNESIUM CITRATE SOLN 300 ML BTL PO SCH ×2 (12:00→18:00)
[2016-11-09] MEDS: NICOTINE 21 MG/24 HR PATCH TD SCH (12:21)
[2016-11-09] MEDS: RESP: ALBUTEROL 2.5 MG/IPRATROPIUM 0.5 MG NEB (SCH) NEB ×3 (12:33→19:34)
--- NOTE | 2016-11-09 17:25 | HHI.GIFU ---
Subjective Remarks Resting in bed. He was extubated earlier this morning, but very restless and therefore started on Precedex. He has not had any further active bleeding. ( Bre Woodward) Objective Vitals I&O Vital Signs Date Time Temp Pulse Resp B/P Pulse Ox O2 Delivery O2 Flow Rate FiO2 11/09/16 15:00 96 Nasal Cannula 4.00 11/09/16 14:00 87 11/09/16 12:00 99.6 97 18 108/55 98 11/09/16 12:00 97 11/09/16 10:50 94 50 11/09/16 10:45 Bi-Pap 50 11/09/16 10:00 118 11/09/16 10:00 93 Venturi Mask 50 11/09/16 09:45 93 Venturi Mask 50 11/09/16 09:30 91 Nasal Cannula 6.00 11/09/16 09:00 95 Nasal Cannula 5.00 11/09/16 08:00 98.6 97 14 165/71 100 11/09/16 08:00 98 11/09/16 08:00 40 11/09/16 06:00 98 11/09/16 06:00 100 118/55 11/09/16 04:04 99 40 11/09/16 04:00 40 11/09/16 04:00 62 11/09/16 04:00 98.4 96 14 140/56 100 11/09/16 02:00 110 11/09/16 01:05 100 40 11/09/16 00:00 99.2 96 15 134/54 100 11/09/16 00:00 40 11/09/16 00:00 96 11/08/16 22:00 100 11/08/16 20:06 100 40 11/08/16 20:00 99.5 97 14 130/51 100 11/08/16 20:00 97 11/08/16 20:00 40 11/08/16 18:05 109 154/52 11/08/16 18:00 109 I/O 11/08/16 11/08/16 11/08/16 11/09/16 11/09/16 11/09/16 07:00 15:00 23:00 07:00 15:00 23:00 Intake Total 4643 ml 2141 ml 1023 ml 1336 ml 1055 ml Output Total 800 ml 1450 ml 1400 ml 2100 ml 1200 ml Balance 3843 ml 691 ml -377 ml -764 ml -145 ml Intake IV Total 1393 ml 950 ml 993 ml 806 ml 1025 ml Albumin 500 ml 500 ml Packed Cells 250 ml Platelets 191 ml Tube Irrigant 3000 ml 500 ml 30 ml 30 ml 30 ml Output Urine Total 800 ml 1450 ml 1400 ml 2100 ml 1200 ml # Bowel Movements 0 1 0 0 0 Laboratory Laboratory Tests Test 11/09/16 11/09/16 11/09/16 02:00 05:26 11:00 White Blood Count 18.2 20.6 Red Blood Count 2.98 3.22 Hemoglobin 8.6 9.2 Hematocrit 25.4 27.7 Mean Corpuscular Volume 85.2 85.9 Mean Corpuscular Hemoglobin 28.8 28.6 Mean Corpuscular Hemoglobin 33.9 33.3 Concent Red Cell Distribution Width 15.3 15.7 Platelet Count 123 167 Mean Platelet Volume 8.6 8.9 Neutrophils (%) (Auto) 80.8 Lymphocytes (%) (Auto) 12.2 Monocytes (%) (Auto) 6.6 Eosinophils (%) (Auto) 0.2 Basophils (%) (Auto) 0.2 Neutrophils # (Auto) 14.7 Lymphocytes # (Auto) 2.2 Monocytes # (Auto) 1.2 Eosinophils # (Auto) 0.0 Basophils # (Auto) 0.0 CBC Comment DIFF FINAL Differential Comment Sodium Level 145 Potassium Level 3.8 Chloride Level 108 Carbon Dioxide Level 29.4 Anion Gap 8 Blood Urea Nitrogen 10 Creatinine 0.82 Estimat Glomerular Filtration 96 Rate Random Glucose 96 Calcium Level 8.9 Phosphorus Level 2.9 Magnesium Level 2.0 Total Bilirubin 1.3 Aspartate Amino Transf 23 (AST/SGOT) Alanine Aminotransferase 20 (ALT/SGPT) Alkaline Phosphatase 49 Total Protein 5.7 Albumin 3.3 Blood Gas Puncture Site ART LINE Blood Gas Patient Temperature 98.6 Blood Gas HCO3 26 Blood Gas Base Excess 1.1 Blood Gas Oxygen Saturation 94 Arterial Blood pH 7.38 Arterial Blood Partial 45 Pressure CO2 Arterial Blood Partial 86 Pressure O2 Arterial Blood Oxygen Content 11.9 Arterial Blood 1.5 Carboxyhemoglobin Arterial Blood Methemoglobin 0.9 Blood Gas Hemoglobin 8.9 Oxygen Delivery Device VENTILATOR Blood Gas Ventilator Setting PRVC/AC Blood Gas Inspired Oxygen 40 Date/Time Procedure Status Source Growth 11/07/16 20:04 Aerobic Blood Culture - Preliminary Resulted Blood Peripheral NO GROWTH IN 2 DAYS 11/07/16 20:04 Anaerobic Blood Culture - Preliminary Resulted Blood Peripheral NO GROWTH IN 2 DAYS 11/07/16 18:45 Gram Stain - Final Resulted Sputum Endotracheal 11/07/16 18:45 Sputum Culture - Preliminary Resulted Haemophilus Influenzae Imaging Last Impressions Chest X-Ray 11/09/16 0600 Signed Impressions: Service Date/Time: Wednesday, November 09, 2016 05:50 - CONCLUSION: 1. Cardiomegaly 2. Bilateral lower lobe atelectasis versus pneumonia. There has been no significant change when compared to the prior exam. Bear King MD GI Bleed Scan Nuclear Medicine 11/07/16 0000 Signed Impressions: Service Date/Time: Monday, November 07, 2016 14:45 - CONCLUSION: No active GI bleeding is identified during the examination. Alex Bro MD Abdomen/Pelvis CT 11/05/16 0000 Signed Impressions: Service Date/Time: Saturday, November 05, 2016 14:07 - CONCLUSION: Appendiceal wall thickening with the appendix measuring 1.2 cm in transverse diameter. No evidence of appendicolith, adjacent fat stranding or free fluid. These findings may represent an early appendicitis. Correlate for right lower quadrant pain.. Kori Livingston MD Physical Exam HEENT: Normocephalic; atraumatic; no jaundice CHEST: CTA CARDIAC: RRR ABDOMEN: Soft, nondistended, nontender; no hepatosplenomegaly; bowel sounds are present in all four quadrants. EXTREMITIES: Generalized edema. SKIN: Normal; no rash; no jaundice. GAMEPLAY PROGRAMMER: Lethargic, on Precedex (Bre Woodward OPERATION SPECIALIST) Assessment and Plan Plan ASSESSMENT: - Hematochezia with BRBPR. He has GERD and takes omeprazole 20mg po daily. He also took 2 ASA over the weekend. He denies any hx of GIB and has never had a colonoscopy. CT Abdomen and pelvis (11/05/16)----> Appendiceal wall thickening with the appendix measuring 1.2 cm in transverse diameter. No evidence of appendicolith, adjacent fat stranding or free fluid. These findings may represent an early appendicitis. Pt had significant rectal bleeding on 11/05. S/P EGD/Colonoscopy (11/07/16)----> Lower GI bleed unclear source, mild gastritis secondary to NG tube suction trauma. Bleeding scan (11/07/16)-----> No active GI bleeding is identified during the examination. S/P Colonoscopy (11/08/16)---- -> Normal terminal ileum and normal colonoscopy. No further bleeding. HH has remained stable. .12/24.7. - Anemia secondary to acute blood loss. S/P 9 units PRBC. HH .12/24.7 - Abnormal imaging on CT scan. (11/05/16)----> Appendiceal wall thickening with the appendix measuring 1.2 cm in transverse diameter. No evidence of appendicolith, adjacent fat stranding or free fluid. These findings may represent an early appendicitis. Of note, his WBC is normal. PLAN: - Okay for clears when more awake - PPI - Monitor HH - Transfuse as necessary - SBFT when more awake and able to take contrast - Notify GI of active bleeding - Consider Capsule endoscopy as outpatient - Further recommendations to follow based on results of above - Pt seen and examined by Dr. Erwin and myself and this note is written on his behalf (Bre Woodward) Physician Comments Patient seen and examined Agree with above Continue current supportive care Monitor labs No active bleeding Await small bowel follow-through Case discussed at length with family members (Shaan Erwin MD) Bre Woodward Nov 09, 2016 17:25 Shaan Erwin MD Nov 09, 2016 23:09
[2016-11-09] MEDS ORDERED: BISACODYL EC 5 MG TABEC PO SCH ×2 (18:00→21:00)
[2016-11-10] VITALS (16 sets, daily range): BP systolic 106–158; BP diastolic 61–77; PULSE 73–112; RESP 15–21; TEMP 97.4–101.5; O2SAT 92–100
[2016-11-10] MEDS: DEXMEDETOMIDINE INJ 50 ML IV SCH ×9 (01:41→17:48)
[2016-11-10 02:13] LABS: AUTOMATED NEUTROPHIL # 11.5 TH/MM3 (1.8-7.7); BASOPHIL % 0.2 % (0.0-2.0); EOSINOPHIL # 0.1 TH/MM3 (0-0.4); EOSINOPHIL % 0.6 % (0.0-4.0); HEMATOCRIT 23.7 % (39.0-51.0); HEMO FLAGS DIFF FINAL; LYMPH % 7.3 % (9.0-44.0); MEAN CELL VOLUME 85.3 FL (80.0-100.0); MEAN CORPUSCULAR HEMOGLOBIN 28.3 PG (27.0-34.0); MEAN CORPUSCULAR HGB CONC 33.2 % (32.0-36.0); MONO % 6.2 % (0.0-8.0); NEUT % 85.7 % (16.0-70.0); PLATELET COUNT 139 TH/MM3 (150-450); RED BLOOD COUNT 2.78 MIL/MM3 (4.50-5.90); RED CELL DISTRIBUTION WIDTH 15.6 % (11.6-17.2); WHITE BLOOD COUNT 13.4 TH/MM3 (4.0-11.0)
[2016-11-10 02:26] LABS: ANION GAP 10 MEQ/L (5-15); AST (GOT) 25 U/L (15-37); BICARBONATE 26.9 MEQ/L (21.0-32.0); BLOOD UREA NITROGEN 13 MG/DL (7-18); CHLORIDE 110 MEQ/L (98-107); GLOMERULAR FILTRATION RATE 115 ML/MIN (>89); MAGNESIUM 2.1 MG/DL (1.5-2.5); POTASSIUM 3.5 MEQ/L (3.5-5.1); SODIUM (NA) 147 MEQ/L (136-145)
[2016-11-10 02:32] LABS: ALKALINE PHOSPHATASE 35 U/L (45-117); TOTAL BILIRUBIN ADULT 1.5 MG/DL (0.2-1.0)
[2016-11-10 02:33] LABS: ALT (GPT) 19 U/L (12-78)
[2016-11-10] MEDS: POTASSIUM PHOSPHATE INJ 30 MMOL in SODIUM CHLOR 0.9% 250 ML INJ 250 ML IV PRN (03:24)
[2016-11-10] MEDS: NS + KCL 20 MEQ INJ 1,000 ML IV SCH ×2 (03:25→10:18)
[2016-11-10] MEDS: MORPHINE SULFATE 4 MG/ML INJ IV PUSH PRN ×2 (04:40→12:08)
[2016-11-10 05:34] LABS: BLOOD GAS BASE EXCESS -0.8 mmol/L (-2-2); BLOOD GAS CARBOXYHEMOGLOBIN 1.3 % (0-4); BLOOD GAS HCO3 23 mmol/L (22-26); BLOOD GAS METHEMOGLOBIN 0.8 % (0-2); BLOOD GAS O2 HGB SATURATION 96 % (90-100); BLOOD GAS OXYGEN CONTENT 11.3 Vol % (12.0-20.0); BLOOD GAS PCO2 39 mmHg (38-42); BLOOD GAS PO2 116 mmHg (61-120); BLOOD GAS TOTAL HGB 8.2 G/DL (12.0-16.0); CRITICAL VALUE NO; OXYGEN DEVICE BiPAP; TEMP CORR TO 98.6
[2016-11-10 05:35] LABS: DRAW SITE ART LINE; FIO2 40 %; STAT NO; VENT SETTINGS IPAP15/EPAP8
--- NOTE | 2016-11-10 06:35 | RADRPT ---
EXAM DATE/TIME: 11/10/2016 05:24 [facility] COMPARISON: CHEST SINGLE AP, November 09, 2016, 5:50. INDICATIONS : Please evaluate after respiratory failure. MEDICAL HISTORY : None. SURGICAL HISTORY : None. ENCOUNTER: Subsequent ACUITY: 1 week PAIN SCORE: Non-responsive. LOCATION: Bilateral chest FINDINGS: There are findings of congestive heart failure with interstitial and alveolar opacity bilaterally. Th e cardiac silhouette is enlarged in transverse diameter. The findings have worsened when compared wit h the prior examination. A left sided subclavian vein catheter is in place without pneumothorax with its tip in the superior vena cava. CONCLUSION: Cardiomegaly. Patchy alveolar disease characteristic of edema or pneumonia. The findings have worsen ed when compared with the prior examination. Bear King MD on November 10, 2016 at 6:33 Board Certified Radiologist. This report was verified electronically.
[2016-11-10] MEDS: PANTOPRAZOLE INJ 80 MG in SODIUM CHLORIDE 0.9% INJ 100 ML IV SCH ×2 (08:30→16:28)
[2016-11-10] MEDS: VASOPRESSIN INJ 40 UNITS in DEXTROSE 5% IN WATER 100ML INJ 98 ML IV SCH ×2 (08:31)
[2016-11-10] MEDS: REMOVE OLD PATCH TD SCH (08:33)
[2016-11-10] MEDS: ALBUMIN HUMAN 5% 25 GM/500 ML BOTTLE IV SCH ×2 (08:33→21:14)
[2016-11-10] MEDS: NICOTINE 21 MG/24 HR PATCH TD SCH (08:33)
[2016-11-10] MEDS ORDERED: ASPIRIN 81 MG CHEW TAB PO SCH (09:00)
[2016-11-10] MEDS: RESP: ALBUTEROL 2.5 MG/IPRATROPIUM 0.5 MG NEB (SCH) NEB ×4 (09:57→20:38)
--- NOTE | 2016-11-10 12:41 | HHI.CCPN ---
Subjective Remarks/Hospital Course 60 y/o man presented to ED after several episodes of rectal bleeding associated with lower abdominal pain. Initially hypotensive low 80s while anxious and frightened. Had postural syncope after two units PRBCs. Hgb drop 2.5 gms and now is hypotensive again with sustained tachycardia. Appears pale. He has vomited twice, rust colored, not gross blood. Transferred rapidly to ICU and lines immediately placed for ongoing resuscitation. CT Scan abdomen/pelvis benign except for possibly thickened appendix. Objective Vital Signs Date Time Temp Pulse Resp B/P Pulse Ox O2 Delivery O2 Flow Rate FiO2 11/10/16 12:00 97.4 88 17 158/72 92 11/10/16 10:03 Venturi Mask 50 11/10/16 07:45 5.00 Intake and Output 11/09/16 11/09/16 11/10/16 08:00 16:00 00:00 Intake Total 1336 ml 1055 ml 1450 ml Output Total 2100 ml 1200 ml 700 ml Balance -764 ml -145 ml 750 ml Result Diagram: 11/10/16 0145 11/10/16 0145 Other Results Laboratory Tests Test 11/10/16 05:25 Blood Gas Puncture Site ART LINE Blood Gas Patient Temperature 98.6 Blood Gas HCO3 23 mmol/L (22-26) Blood Gas Base Excess -0.8 mmol/L (-2-2) Blood Gas Oxygen Saturation 96 % (90-100) Arterial Blood pH 7.40 (7.380-7.420) Arterial Blood Partial 39 mmHg (38-42) Pressure CO2 Arterial Blood Partial 116 mmHg Pressure O2 (61-120) Arterial Blood Oxygen Content 11.3 Vol % (12.0-20.0) Arterial Blood 1.3 % (0-4) Carboxyhemoglobin Arterial Blood Methemoglobin 0.8 % (0-2) Blood Gas Hemoglobin 8.2 G/DL (12.0-16.0) Oxygen Delivery Device BiPAP Blood Gas Ventilator Setting [id number]/[id number] Blood Gas Inspired Oxygen 40 % Objective Remarks Vital Signs Date Time Temp Pulse Resp B/P Pulse Ox O2 Delivery O2 Flow Rate FiO2 11/08/16 04:12 100 40 11/08/16 04:00 99.4 70 15 134/56 11/06/16 01:06 Nasal Cannula 2 General: Ill-appearing man in considerable distress. Head: Atraumatic, pale. Neck: Supple, airway patent. Lungs: Clear, no wheezes or crackles. Heart: NL S1S2, no m,r. Neck veins flat when supine. Fem pulse 3+ laury. Abdomen: Soft. No tenderness to palpation but complains of lower abdominal pain. No peritoneal guarding. BS active. No masses. No AAA. Extremities: Tepid, poorly perfused. Skin: Pale, damp. Neuro: Slight language barrier but appears O X 3. Cooperative. Moves 4 limbs spontaneously. A/P Problem List: (1) Hypovolemic shock ICD Code: R57.1 Status: Acute (2) Rectal bleeding ICD Code: K62.5 Status: Acute (3) Symptomatic anemia ICD Code: D64.9 Status: Acute (4) Syncope ICD Code: R55 Status: Acute Assessment and Plan Plan: CV: - hypotension - posthemorrhagic - resolved - D/C Flowtrack - D/C a.line - STOP gentle i.v.crystalloid resuscitation RESP: - intubated for an airway protection - tolerated SBT well - extubated 11/09 - BiPAP PRN for hypoxemia - Fluid overload on CXR vs PNA - Haemophilus Influenzae - Start Cefepime NEURO: - MS 4 mg iv prn. - Fentanyl gtt D/C - Versed gtt D/C - Precedex gtt for anxiety and sedation - Start Seroquel RENAL: - good urine output - Follow creat/bun, aggressive hydration - electrolyte replacement protocol. GI: - Repeat colonoscopy 11/08 w/o sign of active bleeding - Upper and lower Endoscopy w/o obvious source of bleed 11/07 - NM bleeding scan negative - Continue NG to LIS. Protonix gtt - GI appreciated : - Lange for hourly output. ID: - Cultures for fevers - Tylenol PRN HEME: - serial H&H - transfuse as needed to keep Hg > 7 ENDO: - NA PX: SCDs, protonix Overall impression: Lower vs. small bowel GI hemorrhage and critically ill with hemorrhagic shock. Bleeding still active and CVP 0. Sustained tachycardia implicates ongoing hemorrhage. Prognosis guarded. Level 3 Problem Qualifiers (1) Syncope: Qualified Code: R55 - Syncope, unspecified syncope type Lennox Sanchez MD Nov 10, 2016 12:41
[2016-11-10] MEDS: FUROSEMIDE 20 MG/2 ML VIAL IV PUSH SCH ×2 (12:52→18:20)
[2016-11-10] MEDS: CEFEPIME INJ 2,000 MG in SODIUM CHLORIDE 0.9% INJ 100 ML IV SCH (13:03)
[2016-11-10] MEDS ORDERED: LORazepam 2 MG/ML VIAL IV ONE (14:00)
[2016-11-10 14:06] LABS: HEMATOCRIT 27.7 % (39.0-51.0); REVIEW FLAG FINAL
[2016-11-10] MEDS ORDERED: QUEtiapine FUMARATE 25 MG TAB PO ONE (15:15)
[2016-11-10] MEDS: ACETAMINOPHEN 1000 MG/100 ML VIAL IV SCH ×2 (16:28→22:30)
[2016-11-10] MEDS ORDERED: DEXMEDETOMIDINE INJ 1,000 MCG in SODIUM CHLOR 0.9% 250 ML INJ 240 ML IV SCH (18:00)
--- NOTE | 2016-11-10 20:01 | HHI.GIFU ---
Subjective Remarks Restless in bed with a BiPAP mask Objective Vitals I&O Vital Signs Date Time Temp Pulse Resp B/P Pulse Ox O2 Delivery O2 Flow Rate FiO2 11/10/16 19:00 99 Bi-Pap 40 11/10/16 18:00 94 11/10/16 17:39 99 40 11/10/16 16:00 101.5 93 21 134/77 98 11/10/16 16:00 92 11/10/16 14:00 112 11/10/16 12:00 97.4 88 17 158/72 92 11/10/16 12:00 89 11/10/16 10:03 94 Venturi Mask 50 11/10/16 10:00 73 11/10/16 08:00 79 11/10/16 08:00 97.5 73 15 138/77 93 11/10/16 08:00 95 Venturi Mask 50 11/10/16 07:45 92 Nasal Cannula 5.00 11/10/16 07:00 97 Bi-Pap 40 11/10/16 06:00 79 11/10/16 04:15 95 40 11/10/16 04:15 Bi-Pap 50 11/10/16 04:00 84 11/10/16 04:00 98.1 84 21 106/66 92 11/10/16 02:00 90 11/10/16 00:00 112 11/10/16 00:00 100.0 112 16 126/68 95 11/09/16 22:00 96 11/09/16 20:00 101 11/09/16 20:00 99.6 102 24 156/66 96 I/O 11/09/16 11/09/16 11/09/16 11/10/16 11/10/16 11/10/16 07:00 15:00 23:00 07:00 15:00 23:00 Intake Total 1336 ml 1055 ml 1450 ml 1011 ml 1870 ml Output Total 2100 ml 1200 ml 700 ml 650 ml 2300 ml Balance -764 ml -145 ml 750 ml 361 ml -430 ml Intake IV Total 806 ml 1025 ml 950 ml 1011 ml 1370 ml Albumin 500 ml 500 ml 500 ml Tube Irrigant 30 ml 30 ml Output Urine Total 2100 ml 1200 ml 700 ml 650 ml 2300 ml # Bowel Movements 0 0 0 0 0 Laboratory Laboratory Tests Test 1/11/10/16 11/10/16 01:45 05:25 13:45 White Blood Count 13.4 Red Blood Count 2.78 Hemoglobin 7.9 9.3 Hematocrit 23.7 27.7 Mean Corpuscular Volume 85.3 Mean Corpuscular Hemoglobin 28.3 Mean Corpuscular Hemoglobin 33.2 Concent Red Cell Distribution Width 15.6 Platelet Count 139 Mean Platelet Volume 8.7 Neutrophils (%) (Auto) 85.7 Lymphocytes (%) (Auto) 7.3 Monocytes (%) (Auto) 6.2 Eosinophils (%) (Auto) 0.6 Basophils (%) (Auto) 0.2 Neutrophils # (Auto) 11.5 Lymphocytes # (Auto) 1.0 Monocytes # (Auto) 0.8 Eosinophils # (Auto) 0.1 Basophils # (Auto) 0.0 CBC Comment DIFF FINAL Differential Comment Sodium Level 147 Potassium Level 3.5 4.0 Chloride Level 110 Carbon Dioxide Level 26.9 Anion Gap 10 Blood Urea Nitrogen 13 Creatinine 0.70 Estimat Glomerular Filtration 115 Rate Random Glucose 112 Calcium Level 8.8 Phosphorus Level 1.8 3.0 Magnesium Level 2.1 Total Bilirubin 1.5 Aspartate Amino Transf 25 (AST/SGOT) Alanine Aminotransferase 19 (ALT/SGPT) Alkaline Phosphatase 35 Total Protein 5.5 Albumin 3.0 Blood Gas Puncture Site ART LINE Blood Gas Patient Temperature 98.6 Blood Gas HCO3 23 Blood Gas Base Excess -0.8 Blood Gas Oxygen Saturation 96 Arterial Blood pH 7.40 Arterial Blood Partial 39 Pressure CO2 Arterial Blood Partial 116 Pressure O2 Arterial Blood Oxygen Content 11.3 Arterial Blood 1.3 Carboxyhemoglobin Arterial Blood Methemoglobin 0.8 Blood Gas Hemoglobin 8.2 Oxygen Delivery Device BiPAP Blood Gas Ventilator Setting [id number]/[id number] Blood Gas Inspired Oxygen 40 Date/Time Procedure Status Source Growth 11/09/16 19:35 Aerobic Blood Culture - Preliminary Resulted Blood Arterial Line NO GROWTH IN 1 DAY 11/09/16 19:35 Anaerobic Blood Culture - Preliminary Resulted Blood Arterial Line NO GROWTH IN 1 DAY 11/09/16 18:45 Urine Culture - Preliminary Resulted Urine Catheterized Urine NO GROWTH IN 24 HOURS. 11/07/16 18:45 Gram Stain - Final Resulted Sputum Endotracheal 11/07/16 18:45 Sputum Culture - Preliminary Resulted Haemophilus Influenzae Imaging Last Impressions Chest X-Ray 11/10/16 0600 Signed Impressions: Service Date/Time: Thursday, November 10, 2016 05:24 - CONCLUSION: Cardiomegaly. Patchy alveolar disease characteristic of edema or pneumonia. The findings have worsened when compared with the prior examination. Bear King MD GI Bleed Scan Nuclear Medicine 11/07/16 0000 Signed Impressions: Service Date/Time: Monday, November 07, 2016 14:45 - CONCLUSION: No active GI bleeding is identified during the examination. Alex Bro MD Abdomen/Pelvis CT 11/05/16 0000 Signed Impressions: Service Date/Time: Saturday, November 05, 2016 14:07 - CONCLUSION: Appendiceal wall thickening with the appendix measuring 1.2 cm in transverse diameter. No evidence of appendicolith, adjacent fat stranding or free fluid. These findings may represent an early appendicitis. Correlate for right lower quadrant pain.. Kori Livingston MD Physical Exam HEENT: Normocephalic; atraumatic; no jaundice CHEST: CTA CARDIAC: RRR ABDOMEN: Soft, nondistended, nontender; no hepatosplenomegaly; bowel sounds are present in all four quadrants. EXTREMITIES: Generalized edema. SKIN: Normal; no rash; no jaundice. MIS MANAGER: Lethargic, on Precedex Assessment and Plan Plan ASSESSMENT: - Hematochezia with BRBPR. He has GERD and takes omeprazole 20mg po daily. He also took 2 ASA over the weekend. He denies any hx of GIB and has never had a colonoscopy. CT Abdomen and pelvis (11/05/16)----> Appendiceal wall thickening with the appendix measuring 1.2 cm in transverse diameter. No evidence of appendicolith, adjacent fat stranding or free fluid. These findings may represent an early appendicitis. Pt had significant rectal bleeding on 11/05. S/P EGD/Colonoscopy (11/07/16)----> Lower GI bleed unclear source, mild gastritis secondary to NG tube suction trauma. Bleeding scan (11/07/16)-----> No active GI bleeding is identified during the examination. S/P Colonoscopy (11/08/16)---- -> Normal terminal ileum and normal colonoscopy. No further bleeding. HH has remained stable. .12/24.7. - Anemia secondary to acute blood loss. S/P 9 units PRBC. HH .12/24.7 - Abnormal imaging on CT scan. (11/05/16)----> Appendiceal wall thickening with the appendix measuring 1.2 cm in transverse diameter. No evidence of appendicolith, adjacent fat stranding or free fluid. These findings may represent an early appendicitis. Of note, his WBC is normal. - Agitation with respiratory compromise PLAN: - Okay for clears when more awake - PPI - Monitor HH - Transfuse as necessary - SBFT when more awake and able to take contrast - Notify GI of active bleeding - Consider Capsule endoscopy as outpatient - Further recommendations to follow based on results of above Shaan Erwin MD Nov 10, 2016 20:01
[2016-11-11] VITALS (13 sets, daily range): BP systolic 128–146; BP diastolic 58–73; PULSE 94–124; RESP 20–26; TEMP 98.7–99.6; O2SAT 93–100
[2016-11-11] MEDS: CEFEPIME INJ 2,000 MG in SODIUM CHLORIDE 0.9% INJ 100 ML IV SCH ×2 (00:10→12:45)
[2016-11-11] MEDS: NS + KCL 20 MEQ INJ 1,000 ML IV SCH ×2 (00:10→09:57)
[2016-11-11] MEDS: FUROSEMIDE 20 MG/2 ML VIAL IV PUSH SCH ×2 (00:10→07:00)
[2016-11-11 02:53] LABS: AUTOMATED NEUTROPHIL # 10.7 TH/MM3 (1.8-7.7); BASOPHIL # 0.1 TH/MM3 (0-0.2); BASOPHIL % 0.4 % (0.0-2.0); EOSINOPHIL # 0.3 TH/MM3 (0-0.4); HEMATOCRIT 25.9 % (39.0-51.0); HEMO FLAGS DIFF FINAL; LYMPH % 10.9 % (9.0-44.0); LYMPHOCYTE # 1.5 TH/MM3 (1.0-4.8); MEAN CELL VOLUME 86.7 FL (80.0-100.0); MEAN CORPUSCULAR HGB CONC 33.4 % (32.0-36.0); MONO % 7.2 % (0.0-8.0); NEUT % 79.5 % (16.0-70.0); PLATELET COUNT 192 TH/MM3 (150-450); RED BLOOD COUNT 2.99 MIL/MM3 (4.50-5.90); RED CELL DISTRIBUTION WIDTH 15.7 % (11.6-17.2); WHITE BLOOD COUNT 13.4 TH/MM3 (4.0-11.0)
[2016-11-11 03:07] LABS: ALT (GPT) 21 U/L (12-78); ANION GAP 9 MEQ/L (5-15); AST (GOT) 25 U/L (15-37); BLOOD UREA NITROGEN 15 MG/DL (7-18); CHLORIDE 103 MEQ/L (98-107); GLOMERULAR FILTRATION RATE 90 ML/MIN (>89); MAGNESIUM 1.9 MG/DL (1.5-2.5); POTASSIUM 3.4 MEQ/L (3.5-5.1); SODIUM (NA) 144 MEQ/L (136-145)
[2016-11-11 03:09] LABS: ALKALINE PHOSPHATASE 38 U/L (45-117)
[2016-11-11] MEDS: PANTOPRAZOLE INJ 80 MG in SODIUM CHLORIDE 0.9% INJ 100 ML IV SCH ×2 (03:32→14:48)
[2016-11-11] MEDS: ACETAMINOPHEN 1000 MG/100 ML VIAL IV SCH ×4 (04:25→23:54)
--- NOTE | 2016-11-11 04:57 | RADRPT ---
EXAM DATE/TIME: 11/11/2016 03:55 [facility] COMPARISON: CHEST SINGLE AP, November 10, 2016, 5:24. INDICATIONS : Please evaluate after respiratory failure. MEDICAL HISTORY : None. SURGICAL HISTORY : None. ENCOUNTER: Subsequent ACUITY: 1 week PAIN SCORE: Non-responsive. LOCATION: Bilateral chest FINDINGS: The cardiac silhouette is enlarged in transverse diameter. There are findings of congestive heart [place] with interstitial and alveolar opacity bilaterally. A moderate size right sided effusion is pres ent. A left sided subclavian vein catheter is in place without pneumothorax with its tip in the super ior vena cava. CONCLUSION: 1. Cardiomegaly and findings of congestive heart failure. There has been no significant change when c ompared to the prior exam. Bear King MD on November 11, 2016 at 4:55 Board Certified Radiologist. This report was verified electronically.
[2016-11-11 06:27] LABS: BLOOD GAS BASE EXCESS 4.6 mmol/L (-2-2); BLOOD GAS CARBOXYHEMOGLOBIN 1.7 % (0-4); BLOOD GAS HCO3 28 mmol/L (22-26); BLOOD GAS METHEMOGLOBIN 1.1 % (0-2); BLOOD GAS O2 HGB SATURATION 92 % (90-100); BLOOD GAS OXYGEN CONTENT 12.2 Vol % (12.0-20.0); BLOOD GAS PCO2 36 mmHg (38-42); BLOOD GAS PO2 74 mmHg (61-120); BLOOD GAS TOTAL HGB 9.5 G/DL (12.0-16.0); TEMP CORR TO 101.8
[2016-11-11 06:28] LABS: CRITICAL VALUE YES; DRAW SITE RT RADIAL; LITER FLOW 3 L/M; NUMBER OF ARTERIAL PUNCTURES 2; OXYGEN DEVICE NASAL CANNULA; STAT NO; ULNAR PULSE PRESENT
[2016-11-11] MEDS: RESP: ALBUTEROL 2.5 MG/IPRATROPIUM 0.5 MG NEB (SCH) NEB ×4 (08:12→20:45)
[2016-11-11] MEDS: ALBUMIN HUMAN 5% 25 GM/500 ML BOTTLE IV SCH (09:54)
[2016-11-11] MEDS: QUEtiapine FUMARATE 25 MG TAB PO SCH ×2 (09:55→12:45)
[2016-11-11] MEDS: REMOVE OLD PATCH TD SCH (09:56)
[2016-11-11] MEDS: NICOTINE 21 MG/24 HR PATCH TD SCH (09:56)
[2016-11-11] MEDS: VASOPRESSIN INJ 40 UNITS in DEXTROSE 5% IN WATER 100ML INJ 98 ML IV SCH ×2 (12:39)
--- NOTE | 2016-11-11 13:01 | HHI.CCPN ---
Subjective Remarks/Hospital Course 60 y/o man presented to ED after several episodes of rectal bleeding associated with lower abdominal pain. Initially hypotensive low 80s while anxious and frightened. Had postural syncope after two units PRBCs. Hgb drop 2.5 gms and now is hypotensive again with sustained tachycardia. Appears pale. He has vomited twice, rust colored, not gross blood. Transferred rapidly to ICU and lines immediately placed for ongoing resuscitation. CT Scan abdomen/pelvis benign except for possibly thickened appendix. Objective Vital Signs Date Time Temp Pulse Resp B/P Pulse Ox O2 Delivery O2 Flow Rate FiO2 11/11/16 12:00 99.0 112 24 146/73 98 11/11/16 07:00 Nasal Cannula 4.00 11/10/16 19:00 40 Intake and Output 11/10/16 11/10/16 11/11/16 08:00 16:00 00:00 Intake Total 1011 ml 1870 ml 1487 ml Output Total 650 ml 2300 ml 2700 ml Balance 361 ml -430 ml -1213 ml Result Diagram: 11/11/16 0215 11/11/16 0215 Other Results Microbiology Date/Time Procedure Status Source Growth 11/09/16 18:45 Urine Culture - Final Complete Urine Catheterized Urine NO GROWTH IN 48 HOURS. Laboratory Tests Test 11/11/16 06:17 Blood Gas Puncture Site RT RADIAL Blood Gas Patient Temperature 101.8 Blood Gas HCO3 28 mmol/L (22-26) Blood Gas Base Excess 4.6 mmol/L (-2-2) Blood Gas Oxygen Saturation 92 % (90-100) Arterial Blood pH 7.51 (7.380-7.420) Arterial Blood Partial 36 mmHg (38-42) Pressure CO2 Arterial Blood Partial 74 mmHg Pressure O2 (61-120) Arterial Blood Oxygen Content 12.2 Vol % (12.0-20.0) Arterial Blood 1.7 % (0-4) Carboxyhemoglobin Arterial Blood Methemoglobin 1.1 % (0-2) Blood Gas Hemoglobin 9.5 G/DL (12.0-16.0) Oxygen Delivery Device NASAL CANNULA Blood Gas Liter Flow 3 L/M Objective Remarks Vital Signs Date Time Temp Pulse Resp B/P Pulse Ox O2 Delivery O2 Flow Rate FiO2 11/08/16 04:12 100 40 11/08/16 04:00 99.4 70 15 134/56 11/06/16 01:06 Nasal Cannula 2 General: Ill-appearing man in considerable distress. Head: Atraumatic, pale. Neck: Supple, airway patent. Lungs: Clear, no wheezes or crackles. Heart: NL S1S2, no m,r. Neck veins flat when supine. Fem pulse 3+ laury. Abdomen: Soft. No tenderness to palpation but complains of lower abdominal pain. No peritoneal guarding. BS active. No masses. No AAA. Extremities: Tepid, poorly perfused. Skin: Pale, damp. Neuro: Slight language barrier but appears O X 3. Cooperative. Moves 4 limbs spontaneously. A/P Problem List: (1) Hypovolemic shock ICD Code: R57.1 Status: Acute (2) Rectal bleeding ICD Code: K62.5 Status: Acute (3) Symptomatic anemia ICD Code: D64.9 Status: Acute (4) Syncope ICD Code: R55 Status: Acute Assessment and Plan Plan: CV: - hypotension - posthemorrhagic - resolved - STOP i.v. fluids RESP: - intubated for an airway protection - tolerated SBT well - extubated 11/09 - BiPAP PRN for hypoxemia - Fluid overload on CXR vs PNA - gentle diuresis - Haemophilus Influenzae - Start Cefepime NEURO: - MS 4 mg iv prn. - Fentanyl gtt D/C - Versed gtt D/C - Precedex gtt for anxiety and sedation - continue Seroquel RENAL: - good urine output - Follow creat/bun, aggressive hydration - electrolyte replacement protocol. GI: - Repeated colonoscopy 11/08 w/o sign of active bleeding - Upper and lower Endoscopy w/o obvious source of bleed 11/07 - NM bleeding scan negative - Continue management per GI - clear liquid diet - GI appreciated : - Lange for hourly output. ID: - Cultures for fevers - Tylenol PRN - Cefepime - Hem. Influenzae PNA HEME: - serial H&H - transfuse as needed to keep Hg > 7 ENDO: - NA PX: SCDs, protonix Overall impression: Lower vs. small bowel GI hemorrhage and critically ill with hemorrhagic shock. Bleeding still active and CVP 0. Sustained tachycardia implicates ongoing hemorrhage. Prognosis guarded. Level 3 Problem Qualifiers (1) Syncope: Qualified Code: R55 - Syncope, unspecified syncope type Lennox Sanchez MD Nov 11, 2016 13:01
[2016-11-11] MEDS: MORPHINE SULFATE 4 MG/ML INJ IV PUSH PRN (19:38)
[2016-11-11] MEDS: POTASSIUM CHLOR 40 MEQ PREMIX 100 ML IV PRN ×2 (19:39→21:42)
--- NOTE | 2016-11-11 19:39 | HHI.GIFU ---
Subjective Remarks More alert more responsive more comfortable no complaints at this point Objective Vitals I&O Vital Signs Date Time Temp Pulse Resp B/P Pulse Ox O2 Delivery O2 Flow Rate FiO2 11/11/16 18:00 115 11/11/16 16:00 115 11/11/16 16:00 98.8 115 26 140/65 100 11/11/16 14:00 116 11/11/16 12:00 99.0 112 24 146/73 98 11/11/16 12:00 112 11/11/16 10:00 124 11/11/16 08:00 Nasal Cannula 3.00 11/11/16 08:00 113 11/11/16 08:00 98.8 114 24 144/68 98 11/11/16 07:00 97 Nasal Cannula 4.00 11/11/16 06:00 120 11/11/16 04:00 98.7 113 21 140/69 94 11/11/16 04:00 113 11/11/16 02:00 96 11/11/16 00:00 98.9 94 20 132/63 96 11/11/16 00:00 94 11/10/16 22:00 93 11/10/16 20:40 100 Nasal Cannula 5.00 11/10/16 20:00 98.7 93 17 123/61 93 Arterial Line 11/10/16 20:00 85 I/O 11/10/16 11/10/16 11/10/16 11/11/16 11/11/16 11/11/16 07:00 15:00 23:00 07:00 15:00 23:00 Intake Total 1011 ml 1870 ml 1487 ml 930 ml 2066 ml Output Total 650 ml 2300 ml 2700 ml 2800 ml 1575 ml Balance 361 ml -430 ml -1213 ml -1870 ml 491 ml Intake Oral 180 ml IV Total 1011 ml 1370 ml 987 ml 930 ml 1386 ml Albumin 500 ml 500 ml 500 ml Output Urine Total 650 ml 2300 ml 2700 ml 2800 ml 1575 ml # Bowel Movements 0 0 0 0 0 Laboratory Laboratory Tests Test 11/11/16 11/11/16 11/11/16 02:15 06:17 15:00 White Blood Count 13.4 Red Blood Count 2.99 Hemoglobin 8.7 Hematocrit 25.9 Mean Corpuscular Volume 86.7 Mean Corpuscular Hemoglobin 29.0 Mean Corpuscular Hemoglobin 33.4 Concent Red Cell Distribution Width 15.7 Platelet Count 192 Mean Platelet Volume 8.8 Neutrophils (%) (Auto) 79.5 Lymphocytes (%) (Auto) 10.9 Monocytes (%) (Auto) 7.2 Eosinophils (%) (Auto) 2.0 Basophils (%) (Auto) 0.4 Neutrophils # (Auto) 10.7 Lymphocytes # (Auto) 1.5 Monocytes # (Auto) 1.0 Eosinophils # (Auto) 0.3 Basophils # (Auto) 0.1 CBC Comment DIFF FINAL Differential Comment Sodium Level 144 Potassium Level 3.4 3.1 Chloride Level 103 Carbon Dioxide Level 32.0 Anion Gap 9 Blood Urea Nitrogen 15 Creatinine 0.87 Estimat Glomerular Filtration 90 Rate Random Glucose 113 Calcium Level 9.0 Phosphorus Level 3.2 Magnesium Level 1.9 Total Bilirubin 2.0 Aspartate Amino Transf 25 (AST/SGOT) Alanine Aminotransferase 21 (ALT/SGPT) Alkaline Phosphatase 38 Total Protein 6.1 Albumin 3.3 Blood Gas Puncture Site RT RADIAL Blood Gas Patient Temperature 101.8 Blood Gas HCO3 28 Blood Gas Base Excess 4.6 Blood Gas Oxygen Saturation 92 Arterial Blood pH 7.51 Arterial Blood Partial 36 Pressure CO2 Arterial Blood Partial 74 Pressure O2 Arterial Blood Oxygen Content 12.2 Arterial Blood 1.7 Carboxyhemoglobin Arterial Blood Methemoglobin 1.1 Blood Gas Hemoglobin 9.5 Oxygen Delivery Device NASAL CANNULA Blood Gas Liter Flow 3 Date/Time Procedure Status Source Growth 11/09/16 19:35 Aerobic Blood Culture - Preliminary Resulted Blood Arterial Line NO GROWTH IN 2 DAYS 11/09/16 19:35 Anaerobic Blood Culture - Preliminary Resulted Blood Arterial Line NO GROWTH IN 2 DAYS 11/09/16 18:45 Urine Culture - Final Complete Urine Catheterized Urine NO GROWTH IN 48 HOURS. 11/07/16 18:45 Gram Stain - Final Complete Sputum Endotracheal 11/07/16 18:45 Sputum Culture - Final Complete Haemophilus Influenzae Beta Strep Not Group A Imaging Last 48 hours Impressions Chest X-Ray 11/11/16 0600 Signed Impressions: Service Date/Time: Friday, November 11, 2016 03:55 - CONCLUSION: 1. Cardiomegaly and findings of congestive heart failure. There has been no significant change when compared to the prior exam. Bear King MD Chest X-Ray 11/10/16 0600 Signed Impressions: Service Date/Time: Thursday, November 10, 2016 05:24 - CONCLUSION: Cardiomegaly. Patchy alveolar disease characteristic of edema or pneumonia. The findings have worsened when compared with the prior examination. Bear King MD Physical Exam HEENT: Normocephalic; atraumatic; no jaundice CHEST: CTA CARDIAC: RRR ABDOMEN: Soft, nondistended, nontender; no hepatosplenomegaly; bowel sounds are present in all four quadrants. EXTREMITIES: Generalized edema. SKIN: Normal; no rash; no jaundice. CARDROOM SUPERVISOR: Answering questions correctly but still a little lethargic and fatigued Assessment and Plan Plan ASSESSMENT: - Hematochezia with BRBPR. He has GERD and takes omeprazole 20mg po daily. He also took 2 ASA over the weekend. He denies any hx of GIB and has never had a colonoscopy. CT Abdomen and pelvis (11/05/16)----> Appendiceal wall thickening with the appendix measuring 1.2 cm in transverse diameter. No evidence of appendicolith, adjacent fat stranding or free fluid. These findings may represent an early appendicitis. Pt had significant rectal bleeding on 11/05. S/P EGD/Colonoscopy (11/07/16)----> Lower GI bleed unclear source, mild gastritis secondary to NG tube suction trauma. Bleeding scan (11/07/16)-----> No active GI bleeding is identified during the examination. S/P Colonoscopy (11/08/16)---- -> Normal terminal ileum and normal colonoscopy. No further bleeding. HH has remained stable. 9.2/.7. - Anemia secondary to acute blood loss. S/P 9 units PRBC. HH 9.2/27.7 - Abnormal imaging on CT scan. (11/05/16)----> Appendiceal wall thickening with the appendix measuring 1.2 cm in transverse diameter. No evidence of appendicolith, adjacent fat stranding or free fluid. These findings may represent an early appendicitis. Of note, his WBC is normal. - Agitation with respiratory compromise PLAN: - Okay for clears when more awake - PPI - Monitor HH - Transfuse as necessary - SBFT when more awake and able to take contrast - Notify GI of active bleeding - Consider Capsule endoscopy as outpatient - Further recommendations to follow based on results of above Shaan Erwin MD Nov 11, 2016 19:39
[2016-11-12] VITALS (16 sets, daily range): BP systolic 140–151; BP diastolic 70–77; PULSE 92–128; RESP 18–26; TEMP 98.1–102.2; O2SAT 94–99
[2016-11-12] MEDS: MORPHINE SULFATE 4 MG/ML INJ IV PUSH PRN (01:18)
[2016-11-12] MEDS: CEFEPIME INJ 2,000 MG in SODIUM CHLORIDE 0.9% INJ 100 ML IV SCH ×2 (01:24→14:00)
[2016-11-12] MEDS: ACETAMINOPHEN 1000 MG/100 ML VIAL IV SCH ×2 (04:47→10:00)
--- NOTE | 2016-11-12 05:24 | RADRPT ---
EXAM DATE/TIME: 11/12/2016 04:35 [facility] COMPARISON: CHEST SINGLE AP, November 11, 2016, 3:55. INDICATIONS : Shortness of breath. MEDICAL HISTORY : None. SURGICAL HISTORY : None. ENCOUNTER: Subsequent ACUITY: 1 week PAIN SCORE: Non-responsive. LOCATION: Bilateral chest FINDINGS: Left subclavian central line is stable and satisfactory position. Bilateral perihilar and basilar par enchymal opacities and effusions persists, essentially unchanged. Cardiac contours are grossly stable . CONCLUSION: No significant interval change. Lalo Abdul MD on November 12, 2016 at 5:22 Board Certified Radiologist. This report was verified electronically.
[2016-11-12 05:35] LABS: BASOPHIL # 0.1 TH/MM3 (0-0.2); BASOPHIL % 0.5 % (0.0-2.0); EOSINOPHIL # 0.2 TH/MM3 (0-0.4); EOSINOPHIL % 1.5 % (0.0-4.0); HEMATOCRIT 25.2 % (39.0-51.0); HEMO FLAGS DIFF FINAL; LYMPH % 14.8 % (9.0-44.0); MEAN CELL VOLUME 87.3 FL (80.0-100.0); MEAN CORPUSCULAR HEMOGLOBIN 29.3 PG (27.0-34.0); MEAN CORPUSCULAR HGB CONC 33.6 % (32.0-36.0); MONO % 9.1 % (0.0-8.0); NEUT % 74.1 % (16.0-70.0); PLATELET COUNT 256 TH/MM3 (150-450); RED BLOOD COUNT 2.89 MIL/MM3 (4.50-5.90); RED CELL DISTRIBUTION WIDTH 16.1 % (11.6-17.2); WHITE BLOOD COUNT 13.5 TH/MM3 (4.0-11.0)
[2016-11-12 05:44] LABS: ALT (GPT) 27 U/L (12-78); ANION GAP 8 MEQ/L (5-15); AST (GOT) 38 U/L (15-37); BICARBONATE 29.1 MEQ/L (21.0-32.0); BLOOD UREA NITROGEN 13 MG/DL (7-18); CHLORIDE 105 MEQ/L (98-107); GLOMERULAR FILTRATION RATE 99 ML/MIN (>89); POTASSIUM 3.9 MEQ/L (3.5-5.1); SODIUM (NA) 142 MEQ/L (136-145)
[2016-11-12 05:45] LABS: ALKALINE PHOSPHATASE 60 U/L (45-117); TOTAL BILIRUBIN ADULT 1.4 MG/DL (0.2-1.0)
[2016-11-12] MEDS: RESP: ALBUTEROL 2.5 MG/IPRATROPIUM 0.5 MG NEB (SCH) NEB ×4 (07:59→19:55)
[2016-11-12] MEDS: QUEtiapine FUMARATE 25 MG TAB PO SCH ×2 (09:58→14:00)
[2016-11-12] MEDS: REMOVE OLD PATCH TD SCH (09:58)
[2016-11-12] MEDS: NICOTINE 21 MG/24 HR PATCH TD SCH (09:58)
--- NOTE | 2016-11-12 10:06 | HHI.GIFU ---
Subjective Remarks Patient is resting in bed denies nausea, vomiting, abdominal pain, hematochezia or melena. He is tolerating clears okay.He had 1 Bm today and no signs of bleeding. accompanied by (Darren Martinez) Objective Vitals I&O Vital Signs Date Time Temp Pulse Resp B/P Pulse Ox O2 Delivery O2 Flow Rate FiO2 11/12/16 08:00 94 Room Air 11/12/16 07:59 98 21 11/12/16 07:00 100 Nasal Cannula 4.00 11/12/16 06:00 92 11/12/16 04:00 98 11/12/16 04:00 98.3 98 22 150/72 99 11/12/16 02:41 97 Nasal Cannula 4.00 11/12/16 02:00 100 11/12/16 00:00 98.3 112 23 148/72 96 11/12/16 00:00 114 11/11/16 22:00 112 11/11/16 20:46 97 Nasal Cannula 4.00 11/11/16 20:00 99.6 118 20 128/58 93 11/11/16 20:00 119 11/11/16 19:00 95 Nasal Cannula 4.00 11/11/16 18:00 115 11/11/16 16:00 115 11/11/16 16:00 98.8 115 26 140/65 100 11/11/16 14:00 116 11/11/16 12:00 99.0 112 24 146/73 98 11/11/16 12:00 112 11/11/16 10:00 124 I/O 11/11/16 11/11/16 11/11/16 11/12/16 11/12/16 11/12/16 07:00 15:00 23:00 07:00 15:00 23:00 Intake Total 930 ml 2066 ml 535 ml 485 ml Output Total 2800 ml 1575 ml 750 ml 1400 ml Balance -1870 ml 491 ml -215 ml -915 ml Intake Oral 180 ml 360 ml 60 ml IV Total 930 ml 1386 ml 175 ml 425 ml Albumin 500 ml Output Urine Total 2800 ml 1575 ml 750 ml 1400 ml # Bowel Movements 0 0 1 0 Laboratory Laboratory Tests Test 11/11/16 11/12/16 15:00 05:00 Potassium Level 3.1 3.9 White Blood Count 13.5 Red Blood Count 2.89 Hemoglobin 8.5 Hematocrit 25.2 Mean Corpuscular Volume 87.3 Mean Corpuscular Hemoglobin 29.3 Mean Corpuscular Hemoglobin 33.6 Concent Red Cell Distribution Width 16.1 Platelet Count 256 Mean Platelet Volume 8.8 Neutrophils (%) (Auto) 74.1 Lymphocytes (%) (Auto) 14.8 Monocytes (%) (Auto) 9.1 Eosinophils (%) (Auto) 1.5 Basophils (%) (Auto) 0.5 Neutrophils # (Auto) 10.0 Lymphocytes # (Auto) 2.0 Monocytes # (Auto) 1.2 Eosinophils # (Auto) 0.2 Basophils # (Auto) 0.1 CBC Comment DIFF FINAL Differential Comment Sodium Level 142 Chloride Level 105 Carbon Dioxide Level 29.1 Anion Gap 8 Blood Urea Nitrogen 13 Creatinine 0.80 Estimat Glomerular Filtration 99 Rate Random Glucose 101 Calcium Level 9.0 Phosphorus Level 2.8 Magnesium Level 2.0 Total Bilirubin 1.4 Aspartate Amino Transf 38 (AST/SGOT) Alanine Aminotransferase 27 (ALT/SGPT) Alkaline Phosphatase 60 Total Protein 6.1 Albumin 3.1 Date/Time Procedure Status Source Growth 11/09/16 19:35 Aerobic Blood Culture - Preliminary Resulted Blood Arterial Line NO GROWTH IN 2 DAYS 11/09/16 19:35 Anaerobic Blood Culture - Preliminary Resulted Blood Arterial Line NO GROWTH IN 2 DAYS 11/09/16 18:45 Urine Culture - Final Complete Urine Catheterized Urine NO GROWTH IN 48 HOURS. 11/07/16 18:45 Gram Stain - Final Complete Sputum Endotracheal 11/07/16 18:45 Sputum Culture - Final Complete Haemophilus Influenzae Beta Strep Not Group A Imaging Last Impressions Chest X-Ray 11/12/16 0600 Signed Impressions: Service Date/Time: Saturday, November 12, 2016 04:35 - CONCLUSION: No significant interval change. Lalo Abdul MD GI Bleed Scan Nuclear Medicine 11/07/16 0000 Signed Impressions: Service Date/Time: Monday, November 07, 2016 14:45 - CONCLUSION: No active GI bleeding is identified during the examination. Alex Bro MD Abdomen/Pelvis CT 11/05/16 0000 Signed Impressions: Service Date/Time: Saturday, November 05, 2016 14:07 - CONCLUSION: Appendiceal wall thickening with the appendix measuring 1.2 cm in transverse diameter. No evidence of appendicolith, adjacent fat stranding or free fluid. These findings may represent an early appendicitis. Correlate for right lower quadrant pain.. Kori Livingston MD Physical Exam HEENT: Normocephalic; atraumatic; no jaundice CHEST: CTA CARDIAC: RRR ABDOMEN: Soft, nondistended, nontender; no hepatosplenomegaly; bowel sounds are present in all four quadrants. EXTREMITIES: Generalized edema. SKIN: Normal; no rash; no jaundice. 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 No more bleeding. HH has remained stable. 8.5/25.2. Tolerating clears okay CT Abdomen and pelvis (11/05/16)----> Appendiceal wall thickening with the appendix measuring 1.2 cm in transverse diameter. No evidence of appendicolith, adjacent fat stranding or free fluid. These findings may represent an early appendicitis. Pt had significant rectal bleeding on 11/05. S/P EGD/Colonoscopy (11/07/16)----> Lower GI bleed unclear source, mild gastritis secondary to NG tube suction trauma. Bleeding scan (11/07/16)-----> No active GI bleeding is identified during the examination. S/P Colonoscopy (11/08/16)---- -> Normal terminal ileum and normal colonoscopy. No further bleeding. - Anemia secondary to acute blood loss. S/P 9 units PRBC. HH has remained stable. 8.5/25.2. Tolerating clears okay - Abnormal imaging on CT scan. (11/05/16)----> Appendiceal wall thickening with the appendix measuring 1.2 cm in transverse diameter. No evidence of appendicolith, adjacent fat stranding or free fluid. These findings may represent an early appendicitis. Of note, his WBC is normal. PLAN: - Full liquids and advance as tolerated - PPI - Monitor HH - Transfuse as necessary - SBFT when able to take contrast - Notify GI of active bleeding - Consider Capsule endoscopy as outpatient - Further recommendations to follow based on results of above - Patient seen and examined by Dr. Bonilla and myself and this note is written on his behalf. (Darren Martinez) Physician Comments Seen and examined with NUT ROASTER HELPER, no active bleeding, awaiting SBFT. Monitor labs. ( Pushpa Bonilla MD) Darren Martinez Nov 12, 2016 10:06 Pushpa Bonilla MD Nov 12, 2016 14:16
[2016-11-12] MEDS: VASOPRESSIN INJ 40 UNITS in DEXTROSE 5% IN WATER 100ML INJ 98 ML IV SCH ×2 (13:48)
--- NOTE | 2016-11-12 15:45 | EC ---
Study Study Date:11/12/2016 STUDY CONCLUSIONS SUMMARY LEFT VENTRICLE: The cavity size was normal. Wall thickness was normal. Systolic function was vigorous. The estimated ejection fraction was in the range of 65% to 70%. Wall motion was normal; there were no regional wall motion abnormalities. If LV function is below 40, please consider prescribing an ACEI or ARB or document rationale for non-use. PROCEDURE DATA STUDY STATUS: Elective. Procedure: Transthoracic echocardiography. Image quality was good. Scanning was performed from the parasternal, apical, and subcostal acoustic windows. Study completion: The patient tolerated the procedure well. Transthoracic echocardiography. M-mode, complete 2D, complete spectral Doppler, and color Doppler. Patient status: Inpatient. CARDIAC ANATOMY LEFT VENTRICLE: The cavity size was normal. Wall thickness was normal. Systolic function was vigorous. The estimated ejection fraction was in the range of 65% to 70%. Wall motion was normal; there were no regional wall motion abnormalities. AORTIC VALVE: Trileaflet; normal thickness leaflets. Doppler: Transvalvular velocity was within the normal range. There was no stenosis. No regurgitation. AORTA: Aortic root: The aortic root was normal in size. MITRAL VALVE: Structurally normal valve. Doppler: Transvalvular velocity was within the normal range. There was no evidence for stenosis. Trace to mild regurgitation. LEFT ATRIUM: The atrium was normal in size. RIGHT VENTRICLE: The cavity size was normal. Wall thickness was normal. PULMONIC VALVE: Doppler: Transvalvular velocity was within the normal range. There was no evidence for stenosis. No regurgitation. TRICUSPID VALVE: Structurally normal valve. Doppler: Transvalvular velocity was within the normal range. Trace to mild regurgitation. PULMONARY ARTERY: The main pulmonary artery was normal-sized. Systolic pressure was within the normal range. RIGHT ATRIUM: The atrium was normal in size. PERICARDIUM: There was no pericardial effusion. SYSTEMIC VEINS: Inferior vena cava: The vessel was normal in size. Prepared and signed by Herve Brewster [id number]
--- NOTE | 2016-11-12 17:05 | HHI.PR ---
Subjective Remarks No blood stools noted. Pt still with some SOB but overall feeling better. Diet advanced to full liquids today Objective Vitals Vital Signs Date Time Temp Pulse Resp B/P Pulse Ox O2 Delivery O2 Flow Rate FiO2 11/12/16 14:00 110 11/12/16 12:33 98 Nasal Cannula 2.00 11/12/16 12:00 93 11/12/16 12:00 98.1 93 18 151/72 97 11/12/16 10:00 111 11/12/16 08:00 94 Room Air 11/12/16 08:00 98.2 115 20 141/72 94 11/12/16 08:00 103 11/12/16 07:59 98 21 11/12/16 07:00 100 Nasal Cannula 4.00 11/12/16 06:00 92 11/12/16 04:00 98 11/12/16 04:00 98.3 98 22 150/72 99 11/12/16 02:41 97 Nasal Cannula 4.00 11/12/16 02:00 100 11/12/16 00:00 98.3 112 23 148/72 96 11/12/16 00:00 114 11/11/16 22:00 112 11/11/16 20:46 97 Nasal Cannula 4.00 11/11/16 20:00 99.6 118 20 128/58 93 11/11/16 20:00 119 11/11/16 19:00 95 Nasal Cannula 4.00 11/11/16 18:00 115 11/11/16 11/11/16 11/12/16 15:00 23:00 07:00 Intake Total 2066 ml 535 ml 485 ml Output Total 1575 ml 750 ml 1400 ml Balance 491 ml -215 ml -915 ml Intake Oral 180 ml 360 ml 60 ml IV Total 1386 ml 175 ml 425 ml Albumin 500 ml Output Urine Total 1575 ml 750 ml 1400 ml # Bowel Movements 0 1 0 Result Diagram: 11/12/16 0500 11/12/16 0500 Other Results Laboratory Tests Test 11/11/16 11/11/16 11/11/16 11/12/16 02:15 06:17 15:00 05:00 White Blood Count 13.4 TH/MM3 13.5 TH/MM3 Red Blood Count 2.99 MIL/MM3 2.89 MIL/MM3 Hemoglobin 8.7 GM/DL 8.5 GM/DL Hematocrit 25.9 % 25.2 % Mean Corpuscular Volume 86.7 FL 87.3 FL Mean Corpuscular Hemoglobin 29.0 PG 29.3 PG Mean Corpuscular Hemoglobin 33.4 % 33.6 % Concent Red Cell Distribution Width 15.7 % 16.1 % Platelet Count 192 TH/MM3 256 TH/MM3 Mean Platelet Volume 8.8 FL 8.8 FL Neutrophils (%) (Auto) 79.5 % 74.1 % Lymphocytes (%) (Auto) 10.9 % 14.8 % Monocytes (%) (Auto) 7.2 % 9.1 % Eosinophils (%) (Auto) 2.0 % 1.5 % Basophils (%) (Auto) 0.4 % 0.5 % Neutrophils # (Auto) 10.7 TH/MM3 10.0 TH/MM3 Lymphocytes # (Auto) 1.5 TH/MM3 2.0 TH/MM3 Monocytes # (Auto) 1.0 TH/MM3 1.2 TH/MM3 Eosinophils # (Auto) 0.3 TH/MM3 0.2 TH/MM3 Basophils # (Auto) 0.1 TH/MM3 0.1 TH/MM3 CBC Comment DIFF FINAL DIFF FINAL Differential Comment Sodium Level 144 MEQ/L 142 MEQ/L Potassium Level 3.4 MEQ/L 3.1 MEQ/L 3.9 MEQ/L Chloride Level 103 MEQ/L 105 MEQ/L Carbon Dioxide Level 32.0 MEQ/L 29.1 MEQ/L Anion Gap 9 MEQ/L 8 MEQ/L Blood Urea Nitrogen 15 MG/DL 13 MG/DL Creatinine 0.87 MG/DL 0.80 MG/DL Estimat Glomerular Filtration 90 ML/MIN 99 ML/MIN Rate Random Glucose 113 MG/DL 101 MG/DL Calcium Level 9.0 MG/DL 9.0 MG/DL Phosphorus Level 3.2 MG/DL 2.8 MG/DL Magnesium Level 1.9 MG/DL 2.0 MG/DL Total Bilirubin 2.0 MG/DL 1.4 MG/DL Aspartate Amino Transf 25 U/L 38 U/L (AST/SGOT) Alanine Aminotransferase 21 U/L 27 U/L (ALT/SGPT) Alkaline Phosphatase 38 U/L 60 U/L Total Protein 6.1 GM/DL 6.1 GM/DL Albumin 3.3 GM/DL 3.1 GM/DL Blood Gas Puncture Site RT RADIAL Blood Gas Patient Temperature 101.8 Blood Gas HCO3 28 mmol/L Blood Gas Base Excess 4.6 mmol/L Blood Gas Oxygen Saturation 92 % Arterial Blood pH 7.51 Arterial Blood Partial 36 mmHg Pressure CO2 Arterial Blood Partial 74 mmHg Pressure O2 Arterial Blood Oxygen Content 12.2 Vol % Arterial Blood 1.7 % Carboxyhemoglobin Arterial Blood Methemoglobin 1.1 % Blood Gas Hemoglobin 9.5 G/DL Oxygen Delivery Device NASAL CANNULA Blood Gas Liter Flow 3 L/M Imaging Last Impressions Chest X-Ray 11/05/16 1241 Signed Impressions: Service Date/Time: Saturday, November 05, 2016 13:03 - CONCLUSION: No acute disease. Saji Lal MD Objective Remarks General: NAD Chest: CTA bilaterally Cardiac: Regular, tachy Abd: +BS, soft ND/NT Ext: Mild bilateral LE edema A/P Problem List: (1) Rectal bleeding Status: Acute Plan: - Pt admitted with 4-5 episodes of dark red rectal bleeding that began on 11/04/16 - CT Abd/pelvis (11/05/16) --> Appendiceal wall thickening with the appendix measuring 1.2cm in transverse diameter, no evidence of appendicolith, adjacent fat stranding or free fluid. - Pt does not clinically appear to have appendicitis - GI following. - Pt had significant rectal bleeding on 11/05. - Pt underwent EGD/Colonoscopy (11/07/16)----> Lower GI bleed unclear source, mild gastritis secondary to NG tube suction trauma. - Bleeding scan (11/07/16)-----> No active GI bleeding is identified during the examination. - Repeat Colonoscopy (11/08/16)-----> Normal terminal ileum and normal colonoscopy. No further bleeding. - Pt has received 9 units PRBC and one unit of platelets. H/H has remained stable, labs today with Hgb 8.5/Hct 25.2. - Tolerating clears okay and diet was advanced to full liquid diet - SBFT ordered 11/11 - Monitor labs and notify GI of any active bleeding. - Supportive care - DVT prophylaxis with SCDs (2) Volume overload Status: Acute Plan: - Pt received 9 units of PRBCs and one unit of platelets during this admission - CXR have indicated volume overload and pt with some LE edema. - Pt has been on Lasix in the ICU with good UOP - Monitor weight daily - Monitor I&Os (3) Fever Status: Acute Plan: - Pt has had fevers intermittently since 11/07/16 - Sputum culture from 11/07 growing H. flu and beta strep - Pt has been on cefepime - Blood cultures (11/09) with NGTD (4) Symptomatic anemia Status: Acute Plan: - See above. (5) Syncope Status: Acute Plan: - Pt had a syncopal episode prior to admission while on the commode per the pt family which may have been vasovagal - He also had some weakness while in the bathroom in the ER and had to be helped off the floor per nursing staff - This is likely secondary to his GIB and anemia Assessment and Plan Patient examined. Assessment and plan formulated with Merary Byrd PA-C. I agree with the above. Problem Qualifiers (1) Volume overload: Qualified Code: E87.71 - Transfusion associated circulatory overload (2) Syncope: Qualified Code: R55 - Syncope, unspecified syncope type Merary Byrd Nov 12, 2016 17:05 Thai Hernandez DO Nov 22, 2016 22:32
[2016-11-12] MEDS: ACETAMINOPHEN 650 MG/20.3 ML UDC TUBE PRN (20:40)
[2016-11-13] VITALS (14 sets, daily range): BP systolic 126–160; BP diastolic 60–78; PULSE 97–116; RESP 19–22; TEMP 99.1–101.4; O2SAT 93–99
[2016-11-13] MEDS: CEFEPIME INJ 2,000 MG in SODIUM CHLORIDE 0.9% INJ 100 ML IV SCH ×2 (01:17→13:00)
[2016-11-13 04:13] LABS: AUTOMATED NEUTROPHIL # 9.4 TH/MM3 (1.8-7.7); BASOPHIL # 0.1 TH/MM3 (0-0.2); BASOPHIL % 0.6 % (0.0-2.0); EOSINOPHIL # 0.5 TH/MM3 (0-0.4); EOSINOPHIL % 3.5 % (0.0-4.0); HEMATOCRIT 26.2 % (39.0-51.0); HEMO FLAGS DIFF FINAL; LYMPH % 14.2 % (9.0-44.0); LYMPHOCYTE # 1.9 TH/MM3 (1.0-4.8); MEAN CELL VOLUME 87.3 FL (80.0-100.0); MEAN CORPUSCULAR HEMOGLOBIN 29.2 PG (27.0-34.0); MEAN CORPUSCULAR HGB CONC 33.5 % (32.0-36.0); MONO % 9.5 % (0.0-8.0); NEUT % 72.2 % (16.0-70.0); PLATELET COUNT 345 TH/MM3 (150-450); RED CELL DISTRIBUTION WIDTH 16.3 % (11.6-17.2); WHITE BLOOD COUNT 13.1 TH/MM3 (4.0-11.0)
[2016-11-13] MEDS: ACETAMINOPHEN 650 MG/20.3 ML UDC TUBE PRN (07:02)
[2016-11-13] MEDS: RESP: ALBUTEROL 2.5 MG/IPRATROPIUM 0.5 MG NEB (SCH) NEB (08:40)
[2016-11-13] MEDS: REMOVE OLD PATCH TD SCH (08:59)
[2016-11-13] MEDS: QUEtiapine FUMARATE 25 MG TAB PO SCH ×2 (08:59→11:32)
[2016-11-13] MEDS: NICOTINE 21 MG/24 HR PATCH TD SCH (08:59)
--- NOTE | 2016-11-13 11:31 | HHI.GIFU ---
Subjective Remarks Patient is resting in bed doing better, accompanied by daughter, tolerating diet okay, No GI issues, no bleeding, hgb stable. (Darren Martinez) Objective Vitals I&O Vital Signs Date Time Temp Pulse Resp B/P Pulse Ox O2 Delivery O2 Flow Rate FiO2 11/13/16 10:00 116 11/13/16 08:52 99 35 11/13/16 08:42 98 Nasal Cannula 1.50 11/13/16 08:00 101.3 101 20 141/67 97 11/13/16 08:00 101 11/13/16 07:00 95 Nasal Cannula 2.00 11/13/16 06:00 97 11/13/16 04:00 97 11/13/16 04:00 100.8 97 19 140/76 96 11/13/16 02:00 112 11/13/16 00:00 101.3 112 22 128/60 97 11/13/16 00:00 112 11/12/16 22:00 128 11/12/16 21:40 22 11/12/16 20:00 120 11/12/16 20:00 102.2 119 26 140/70 95 11/12/16 19:57 96 Nasal Cannula 1.50 11/12/16 19:00 94 Nasal Cannula 2.00 11/12/16 18:00 115 11/12/16 16:00 110 11/12/16 16:00 101.2 110 20 147/77 97 11/12/16 14:00 110 11/12/16 12:33 98 Nasal Cannula 2.00 11/12/16 12:00 93 11/12/16 12:00 98.1 93 18 151/72 97 I/O 11/12/16 11/12/16 11/12/16 11/13/16 11/13/16 11/13/16 07:00 15:00 23:00 07:00 15:00 23:00 Intake Total 485 ml 1000 ml 308 ml 417 ml Output Total 1400 ml 1800 ml 2700 ml 2200 ml Balance -915 ml -800 ml -2392 ml -1783 ml Intake Oral 60 ml 900 ml 240 ml 240 ml IV Total 425 ml 100 ml 68 ml 177 ml Output Urine Total 1400 ml 1800 ml 2700 ml 2200 ml # Bowel Movements 0 0 0 0 Laboratory Laboratory Tests Test 11/13/16 03:45 White Blood Count 13.1 Red Blood Count 3.00 Hemoglobin 8.8 Hematocrit 26.2 Mean Corpuscular Volume 87.3 Mean Corpuscular Hemoglobin 29.2 Mean Corpuscular Hemoglobin 33.5 Concent Red Cell Distribution Width 16.3 Platelet Count 345 Mean Platelet Volume 8.7 Neutrophils (%) (Auto) 72.2 Lymphocytes (%) (Auto) 14.2 Monocytes (%) (Auto) 9.5 Eosinophils (%) (Auto) 3.5 Basophils (%) (Auto) 0.6 Neutrophils # (Auto) 9.4 Lymphocytes # (Auto) 1.9 Monocytes # (Auto) 1.2 Eosinophils # (Auto) 0.5 Basophils # (Auto) 0.1 CBC Comment DIFF FINAL Differential Comment Date/Time Procedure Status Source Growth 11/09/16 19:35 Aerobic Blood Culture - Preliminary Resulted Blood Arterial Line NO GROWTH IN 4 DAYS 11/09/16 19:35 Anaerobic Blood Culture - Preliminary Resulted Blood Arterial Line NO GROWTH IN 4 DAYS 11/09/16 18:45 Urine Culture - Final Complete Urine Catheterized Urine NO GROWTH IN 48 HOURS. Imaging Last Impressions Chest X-Ray 11/12/16 0600 Signed Impressions: Service Date/Time: Saturday, November 12, 2016 04:35 - CONCLUSION: No significant interval change. Lalo Abdul MD GI Bleed Scan Nuclear Medicine 11/07/16 0000 Signed Impressions: Service Date/Time: Monday, November 07, 2016 14:45 - CONCLUSION: No active GI bleeding is identified during the examination. Alex Bro MD Abdomen/Pelvis CT 11/05/16 0000 Signed Impressions: Service Date/Time: Saturday, November 05, 2016 14:07 - CONCLUSION: Appendiceal wall thickening with the appendix measuring 1.2 cm in transverse diameter. No evidence of appendicolith, adjacent fat stranding or free fluid. These findings may represent an early appendicitis. Correlate for right lower quadrant pain.. Kori Livingston MD Physical Exam HEENT: Normocephalic; atraumatic; no jaundice CHEST: CTA CARDIAC: RRR ABDOMEN: Soft, nondistended, nontender; no hepatosplenomegaly; bowel sounds are present in all four quadrants. EXTREMITIES: Generalized edema. SKIN: Normal; no rash; no jaundice. 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 No more bleeding. HH has remained stable. Tolerating diet okay CT Abdomen and pelvis (11/05/16)----> Appendiceal wall thickening with the appendix measuring 1.2 cm in transverse diameter. No evidence of appendicolith, adjacent fat stranding or free fluid. These findings may represent an early appendicitis. Pt had significant rectal bleeding on 11/05. S/P EGD/Colonoscopy (11/07/16)----> Lower GI bleed unclear source, mild gastritis secondary to NG tube suction trauma. Bleeding scan (11/07/16)-----> No active GI bleeding is identified during the examination. S/P Colonoscopy (11/08/16)---- -> Normal terminal ileum and normal colonoscopy. No further bleeding. - Anemia secondary to acute blood loss. S/P 9 units PRBC. HH has remains stable. Tolerating diet okay - Abnormal imaging on CT scan. (11/05/16)----> Appendiceal wall thickening with the appendix measuring 1.2 cm in transverse diameter. No evidence of appendicolith, adjacent fat stranding or free fluid. These findings may represent an early appendicitis. Of note, his WBC is normal. PLAN: - CHERYL after SBFT - PPI - Monitor HH - Transfuse as necessary - SBFT today, this was discussed with nurse and patient - Notify GI of active bleeding - Consider Capsule endoscopy as outpatient - Further recommendations to follow based on results of above - Patient seen and examined by Dr. Bonilla and myself and this note is written on his behalf. (Darren Martinez) Physician Comments Seen and examined with DAVION in the presence of family. SBFT today. Outpt. Pill cam. Monitor labs. (Pushpa Bonilla MD) Darren Martinez Nov 13, 2016 11:31 Pushpa Bonilla MD Nov 13, 2016 12:19
[2016-11-13] MEDS: ACETAMINOPHEN 325 MG TAB PO PRN ×2 (11:32→20:27)
[2016-11-13] MEDS: VASOPRESSIN INJ 40 UNITS in DEXTROSE 5% IN WATER 100ML INJ 98 ML IV SCH ×2 (13:48)
--- NOTE | 2016-11-13 16:07 | HHI.PR ---
Subjective Remarks Pt has had consistent fever today but reports that overall he is feeling better He just returned from SBFT which was reportedly negative per discussion with radiologist. Objective Vitals Vital Signs Date Time Temp Pulse Resp B/P Pulse Ox O2 Delivery O2 Flow Rate FiO2 11/13/16 12:00 101.4 112 22 160/78 95 11/13/16 12:00 112 11/13/16 10:00 116 11/13/16 08:52 99 35 11/13/16 08:42 98 Nasal Cannula 1.50 11/13/16 08:00 101.3 101 20 141/67 97 11/13/16 08:00 101 11/13/16 07:00 95 Nasal Cannula 2.00 11/13/16 06:00 97 11/13/16 04:00 97 11/13/16 04:00 100.8 97 19 140/76 96 11/13/16 02:00 112 11/13/16 00:00 101.3 112 22 128/60 97 11/13/16 00:00 112 11/12/16 22:00 128 11/12/16 21:40 22 11/12/16 20:00 120 11/12/16 20:00 102.2 119 26 140/70 95 11/12/16 19:57 96 Nasal Cannula 1.50 11/12/16 19:00 94 Nasal Cannula 2.00 11/12/16 18:00 115 11/12/16 11/12/16 11/13/16 15:00 23:00 07:00 Intake Total 1000 ml 308 ml 417 ml Output Total 1800 ml 2700 ml 2200 ml Balance -800 ml -2392 ml -1783 ml Intake Oral 900 ml 240 ml 240 ml IV Total 100 ml 68 ml 177 ml Output Urine Total 1800 ml 2700 ml 2200 ml # Bowel Movements 0 0 0 Result Diagram: 11/13/16 0345 11/12/16 0500 Other Results Laboratory Tests Test 11/12/16 11/13/16 05:00 03:45 White Blood Count 13.5 TH/MM3 13.1 TH/MM3 Red Blood Count 2.89 MIL/MM3 3.00 MIL/MM3 Hemoglobin 8.5 GM/DL 8.8 GM/DL Hematocrit 25.2 % 26.2 % Mean Corpuscular Volume 87.3 FL 87.3 FL Mean Corpuscular Hemoglobin 29.3 PG 29.2 PG Mean Corpuscular Hemoglobin 33.6 % 33.5 % Concent Red Cell Distribution Width 16.1 % 16.3 % Platelet Count 256 TH/MM3 345 TH/MM3 Mean Platelet Volume 8.8 FL 8.7 FL Neutrophils (%) (Auto) 74.1 % 72.2 % Lymphocytes (%) (Auto) 14.8 % 14.2 % Monocytes (%) (Auto) 9.1 % 9.5 % Eosinophils (%) (Auto) 1.5 % 3.5 % Basophils (%) (Auto) 0.5 % 0.6 % Neutrophils # (Auto) 10.0 TH/MM3 9.4 TH/MM3 Lymphocytes # (Auto) 2.0 TH/MM3 1.9 TH/MM3 Monocytes # (Auto) 1.2 TH/MM3 1.2 TH/MM3 Eosinophils # (Auto) 0.2 TH/MM3 0.5 TH/MM3 Basophils # (Auto) 0.1 TH/MM3 0.1 TH/MM3 CBC Comment DIFF FINAL DIFF FINAL Differential Comment Sodium Level 142 MEQ/L Potassium Level 3.9 MEQ/L Chloride Level 105 MEQ/L Carbon Dioxide Level 29.1 MEQ/L Anion Gap 8 MEQ/L Blood Urea Nitrogen 13 MG/DL Creatinine 0.80 MG/DL Estimat Glomerular Filtration 99 ML/MIN Rate Random Glucose 101 MG/DL Calcium Level 9.0 MG/DL Phosphorus Level 2.8 MG/DL Magnesium Level 2.0 MG/DL Total Bilirubin 1.4 MG/DL Aspartate Amino Transf 38 U/L (AST/SGOT) Alanine Aminotransferase 27 U/L (ALT/SGPT) Alkaline Phosphatase 60 U/L Total Protein 6.1 GM/DL Albumin 3.1 GM/DL Imaging Last Impressions Chest X-Ray 11/05/16 1241 Signed Impressions: Service Date/Time: Saturday, November 05, 2016 13:03 - CONCLUSION: No acute disease. Saji Lal MD Objective Remarks General: NAD Chest: CTA bilaterally Cardiac: Regular, tachy Abd: +BS, soft ND/NT Ext: Mild bilateral LE edema A/P Problem List: (1) Rectal bleeding Status: Acute Plan: - Pt admitted with 4-5 episodes of dark red rectal bleeding that began on 11/04/16 - CT Abd/pelvis (11/05/16) --> Appendiceal wall thickening with the appendix measuring 1.2cm in transverse diameter, no evidence of appendicolith, adjacent fat stranding or free fluid. - Pt does not clinically appear to have appendicitis - GI following. - Pt had significant rectal bleeding on 11/05. - Pt underwent EGD/Colonoscopy (11/07/16)----> Lower GI bleed unclear source, mild gastritis secondary to NG tube suction trauma. - Bleeding scan (11/07/16)-----> No active GI bleeding is identified during the examination. - Repeat Colonoscopy (11/08/16)-----> Normal terminal ileum and normal colonoscopy. No further bleeding. - Pt has received 9 units PRBC and one unit of platelets. H/H has remained stable, labs today with Hgb 8.5/Hct 25.2. - Tolerating full liquid diet - SBFT is reportedly neagtive. - Pt will likely need outpt capsule endoscopy - Monitor labs and notify GI of any active bleeding. - Supportive care - DVT prophylaxis with SCDs (2) Volume overload Status: Acute Plan: - Pt received 9 units of PRBCs and one unit of platelets during this admission - CXR have indicated volume overload and pt with some LE edema. - Pt has been on Lasix in the ICU with good UOP. Pt last dose of Lasix was on and still diuresing well. - Monitor weight daily - Monitor I&Os (3) Fever Status: Acute Plan: - Pt has had fevers intermittently since 11/07/16 - Sputum culture from 11/07 growing H. flu and beta strep - Pt has been on cefepime - Blood cultures (11/09) with NGTD - Pt with fever consistently today, Tmax 101.4 today - Remove central line and culture tip - UA/Urine culture - Repeat sputum culture - CXR in AM - CBC and BMP in AM - May consider ID consultation if fevers persist (4) Symptomatic anemia Status: Acute Plan: - See above. (5) Syncope Status: Acute Plan: - Pt had a syncopal episode prior to admission while on the commode per the pt family which may have been vasovagal - He also had some weakness while in the bathroom in the ER and had to be helped off the floor per nursing staff - This is likely secondary to his GIB and anemia Assessment and Plan Patient examined. Assessment and plan formulated with Merary Byrd PA-C. I agree with the above. Problem Qualifiers (1) Volume overload: Qualified Code: E87.71 - Transfusion associated circulatory overload (2) Syncope: Qualified Code: R55 - Syncope, unspecified syncope type Merary Byrd Nov 13, 2016 16:07 Thai Hernandez DO Nov 22, 2016 22:33
--- NOTE | 2016-11-13 16:30 | RADRPT ---
EXAM DATE/TIME: 11/13/2016 12:52 [facility] COMPARISON: No previous studies available for comparison. INDICATIONS : Anemia. Evaluating GI bleed. FLUORO TIME: 1.4 minutes IMAGE COUNT: 16 CONTRAST: Liquid E-Z Paque Barium Sulfate (60% w/v, 41% w/w) IMAGING TIME(S): 15 min, 30 min, 45 min, 1 hours, 1.5 hours 2 hours, and 3 hours MEDICAL HISTORY : None. SURGICAL HISTORY : None. ENCOUNTER: Subsequent ACUITY: 1 week PAIN SCORE: 4/10 LOCATION: Abdomen. FINDINGS: Non Ferrous Material Handler film reveals air within moderately distended small and large bowel. Free air is not clearly se en. The small bowel segments appear normal when filled with barium. Significant fold thickening is n ot seen. Contrast does reach the colon. CONCLUSION: Negative small bowel series. There is no sign of obstruction. Lalo Thompson MD on November 13, 2016 at 16:19 Board Certified Radiologist. This report was verified electronically.
[2016-11-13] MEDS ORDERED: ARTIFICIAL TEARS OPTH SOLN 15 ML BTL RIGHT EYE PRN (16:45)
[2016-11-13 17:47] LABS: BACTERIA, URINE RARE /hpf; BLOOD, URINE NEG (NEG); COMMENT (UR) CULT NOT INDICATED; CULTURE IF INDICATED CULT NOT INDICATED; GLUCOSE,URINE NEG (NEG); KETONE, URINE NEG (NEG); NITRITE,URINE NEG (NEG); URINE COLOR LIGHT-YELLOW (YELLW/STRAW)
[2016-11-14] VITALS (11 sets, daily range): BP systolic 103–151; BP diastolic 56–80; PULSE 89–114; RESP 17–27; TEMP 98.2–101.3; O2SAT 94–99
[2016-11-14] MEDS: CEFEPIME INJ 2,000 MG in SODIUM CHLORIDE 0.9% INJ 100 ML IV SCH ×2 (00:27→12:10)
[2016-11-14 04:14] LABS: BASOPHIL # 0.1 TH/MM3 (0-0.2); BASOPHIL % 0.7 % (0.0-2.0); EOSINOPHIL # 0.8 TH/MM3 (0-0.4); EOSINOPHIL % 4.9 % (0.0-4.0); HEMATOCRIT 26.9 % (39.0-51.0); HEMO FLAGS DIFF FINAL; LYMPH % 14.1 % (9.0-44.0); LYMPHOCYTE # 2.2 TH/MM3 (1.0-4.8); MEAN CELL VOLUME 88.6 FL (80.0-100.0); MEAN CORPUSCULAR HEMOGLOBIN 29.7 PG (27.0-34.0); MEAN CORPUSCULAR HGB CONC 33.5 % (32.0-36.0); MONO % 8.6 % (0.0-8.0); NEUT % 71.7 % (16.0-70.0); PLATELET COUNT 423 TH/MM3 (150-450); RED BLOOD COUNT 3.04 MIL/MM3 (4.50-5.90); RED CELL DISTRIBUTION WIDTH 16.6 % (11.6-17.2); WHITE BLOOD COUNT 15.4 TH/MM3 (4.0-11.0)
[2016-11-14 04:36] LABS: BICARBONATE 26.2 MEQ/L (21.0-32.0); POTASSIUM 3.7 MEQ/L (3.5-5.1)
[2016-11-14] MEDS: NICOTINE 21 MG/24 HR PATCH TD SCH (08:35)
[2016-11-14] MEDS: REMOVE OLD PATCH TD SCH (08:35)
[2016-11-14] MEDS: QUEtiapine FUMARATE 25 MG TAB PO SCH ×2 (08:36→12:10)
--- NOTE | 2016-11-14 13:39 | RADRPT ---
EXAM DATE/TIME: 11/14/2016 12:40 [facility] COMPARISON: CHEST SINGLE AP, November 12, 2016, 4:35. INDICATIONS : Fever. MEDICAL HISTORY : None. SURGICAL HISTORY : None. ENCOUNTER: Subsequent ACUITY: 1 week PAIN SCORE: 0/10 LOCATION: Bilateral chest FINDINGS: The previously noted bilateral interstitial pulmonary infiltrates have resolved. On today's exam the lungs are grossly clear. The heart size is within normal limits. There are no pleural effusions. The bony structures are grossly intact. The left central line is new. CONCLUSION: 1. The previously noted bilateral interstitial pulmonary infiltrates have resolved. 2. No new focal pulmonary infiltrates. Adolfo Castillo MD on November 14, 2016 at 13:37 Board Certified Radiologist. This report was verified electronically.
--- NOTE | 2016-11-14 14:52 | HHI.GIFU ---
Subjective Remarks Tx to medical floor. No bleeding. No n/v, no abdominal pain. Low grade fevers. Tolerating diet. (Bre Woodward) Objective Vitals I&O Vital Signs Date Time Temp Pulse Resp B/P Pulse Ox O2 Delivery O2 Flow Rate FiO2 11/14/16 14:00 98.8 107 18 114/56 94 11/14/16 12:00 113 11/14/16 12:00 99.2 113 27 105/59 94 11/14/16 10:00 89 11/14/16 08:09 94 11/14/16 08:00 96 11/14/16 08:00 99.5 96 20 151/80 95 11/14/16 07:00 95 Room Air 11/14/16 06:00 97 11/14/16 04:00 100.4 97 23 143/72 95 11/14/16 04:00 97 11/14/16 02:00 102 11/14/16 00:00 101 11/14/16 00:00 98.2 101 19 139/69 95 11/13/16 22:00 110 11/13/16 21:27 18 11/13/16 20:17 93 21 11/13/16 20:00 101.3 111 19 126/74 94 11/13/16 20:00 112 11/13/16 19:00 96 Room Air 11/13/16 18:00 100 11/13/16 17:15 97 Room Air 11/13/16 16:05 99.1 100 21 148/76 96 11/13/16 16:05 100 I/O 11/13/16 11/13/16 11/13/16 11/14/16 11/14/16 11/14/16 07:00 15:00 23:00 07:00 15:00 23:00 Intake Total 417 ml 922 ml 356 ml 473 ml Output Total 2200 ml 5000 ml 1400 ml 900 ml Balance -1783 ml -4078 ml -1044 ml -427 ml Intake Oral 240 ml 720 ml 180 ml 325 ml IV Total 177 ml 202 ml 176 ml 148 ml Output Urine Total 2200 ml 5000 ml 1400 ml 900 ml # Bowel Movements 0 1 0 Laboratory Laboratory Tests Test 11/13/16 11/14/16 17:35 03:34 Urine Color LIGHT-YELLOW Urine Turbidity CLEAR Urine pH 8.0 Urine Specific [place] 1.007 Urine Protein NEG Urine Glucose (UA) NEG Urine Ketones NEG Urine Occult Blood NEG Urine Nitrite NEG Urine Bilirubin NEG Urine Urobilinogen LESS THAN 2.0 Urine Leukocyte Esterase NEG Urine RBC 3 Urine WBC 1 Urine Bacteria RARE Microscopic Urinalysis Comment CULT NOT INDICATED White Blood Count 15.4 Red Blood Count 3.04 Hemoglobin 9.0 Hematocrit 26.9 Mean Corpuscular Volume 88.6 Mean Corpuscular Hemoglobin 29.7 Mean Corpuscular Hemoglobin 33.5 Concent Red Cell Distribution Width 16.6 Platelet Count 423 Mean Platelet Volume 8.5 Neutrophils (%) (Auto) 71.7 Lymphocytes (%) (Auto) 14.1 Monocytes (%) (Auto) 8.6 Eosinophils (%) (Auto) 4.9 Basophils (%) (Auto) 0.7 Neutrophils # (Auto) 11.0 Lymphocytes # (Auto) 2.2 Monocytes # (Auto) 1.3 Eosinophils # (Auto) 0.8 Basophils # (Auto) 0.1 CBC Comment DIFF FINAL Differential Comment Sodium Level 140 Potassium Level 3.7 Chloride Level 104 Carbon Dioxide Level 26.2 Anion Gap 10 Blood Urea Nitrogen 14 Creatinine 0.86 Estimat Glomerular Filtration 91 Rate Random Glucose 102 Calcium Level 9.1 Date/Time Procedure Status Source Growth 11/13/16 18:55 Aerobic Blood Culture - Preliminary Resulted Blood Peripheral NO GROWTH IN 1 DAY 11/13/16 18:55 Anaerobic Blood Culture - Preliminary Resulted Blood Peripheral NO GROWTH IN 1 DAY 11/13/16 17:35 Wound Culture - Preliminary Resulted Catheter Tip Central Venous Line NO GROWTH IN 24 HOURS. 11/09/16 19:35 Aerobic Blood Culture - Final Complete Blood Arterial Line NO GROWTH IN 5 DAYS 11/09/16 19:35 Anaerobic Blood Culture - Final Complete Blood Arterial Line NO GROWTH IN 5 DAYS 11/09/16 18:45 Urine Culture - Final Complete Urine Catheterized Urine NO GROWTH IN 48 HOURS. Imaging Last Impressions Chest X-Ray 11/14/16 0800 Signed Impressions: Service Date/Time: Monday, November 14, 2016 12:40 - CONCLUSION: 1. The previously noted bilateral interstitial pulmonary infiltrates have resolved. 2. No new focal pulmonary infiltrates. Adolfo Castillo MD Small Bowel X-Ray 11/13/16 0000 Signed Impressions: Service Date/Time: Sunday, November 13, 2016 12:52 - CONCLUSION: Negative small bowel series. There is no sign of obstruction. Lalo Thompson MD GI Bleed Scan Nuclear Medicine 11/07/16 0000 Signed Impressions: Service Date/Time: Monday, November 07, 2016 14:45 - CONCLUSION: No active GI bleeding is identified during the examination. Alex Bro MD Abdomen/Pelvis CT 11/05/16 0000 Signed Impressions: Service Date/Time: Saturday, November 05, 2016 14:07 - CONCLUSION: Appendiceal wall thickening with the appendix measuring 1.2 cm in transverse diameter. No evidence of appendicolith, adjacent fat stranding or free fluid. These findings may represent an early appendicitis. Correlate for right lower quadrant pain.. Kori Livingston MD Physical Exam HEENT: Normocephalic; atraumatic; no jaundice CHEST: CTA CARDIAC: RRR ABDOMEN: Soft, nondistended, nontender; no hepatosplenomegaly; bowel sounds are present in all four quadrants. EXTREMITIES: Generalized edema. SKIN: Normal; no rash; no jaundice. TELEPHOTO ENGINEER: alert and oriented, (Bre Woodward) Assessment and Plan Plan ASSESSMENT: - Hematochezia with BRBPR. CT Abdomen and pelvis (11/05/16)----> Appendiceal wall thickening with the appendix measuring 1.2 cm in transverse diameter. No evidence of appendicolith, adjacent fat stranding or free fluid. These findings may represent an early appendicitis. Pt had significant rectal bleeding on 11/05. S/P EGD/Colonoscopy (11/07/16)----> Lower GI bleed unclear source, mild gastritis secondary to NG tube suction trauma. Bleeding scan (11/07/16)-----> No active GI bleeding is identified during the examination. S/P Colonoscopy (11/08/16)---- -> Normal terminal ileum and normal colonoscopy. SBFT (11/13/16 )---> Negative small bowel series. There is no sign of obstruction. No further bleeding. HH stable. - Anemia secondary to acute blood loss. S/P 9 units PRBC. HH has remains stable 9.0/26.9 today. Tolerating diet okay - Abnormal imaging on CT scan. (11/05/16)----> Appendiceal wall thickening with the appendix measuring 1.2 cm in transverse diameter. No evidence of appendicolith, adjacent fat stranding or free fluid. These findings may represent an early appendicitis. Of note, his WBC was initially normal and he was afebrile, but he now has low grade fever and worsening leukocytosis. Will repeat CT scan to follow up on this. - Fever, Leukocytosis. CXR normal. U/A unremarkable. Blood cultures no growth one day. Will get CT scan abdomen and pelvis PLAN: - CHERYL - PPI - Monitor HH - Transfuse as necessary - CT scan abdomen and pelvis with po/iv contrast - Notify GI of active bleeding - Consider Capsule endoscopy as outpatient - Further recommendations to follow based on results of above - Patient seen and examined by Dr. Bonilla and myself and this note is written on his behalf. (Bre Woodward) Physician Comments Seen and examined with Ms. Crissy RICARDO, no bleeding. Repeat CT ordered. Outpt. Pill cam recommended. (Pushpa Bonilla MD) Bre Woodward Nov 14, 2016 14:52 Pushpa Bonilla MD Nov 14, 2016 16:31
[2016-11-14] MEDS ORDERED: DIATRIZOATE MEGLUM/DIATRIZOATE SOD 9 ML CUP PO ONE (15:30)
--- NOTE | 2016-11-14 16:29 | HHI.PR ---
Subjective Remarks Pt overall feeling well today Last fever was at 0400 this morning of 100.4 Denies any abd pain, nausea/vomiting. Objective Vitals Vital Signs Date Time Temp Pulse Resp B/P Pulse Ox O2 Delivery O2 Flow Rate FiO2 11/14/16 14:00 98.8 107 18 114/56 94 11/14/16 12:00 113 11/14/16 12:00 99.2 113 27 105/59 94 11/14/16 10:00 89 11/14/16 08:09 94 11/14/16 08:00 96 11/14/16 08:00 99.5 96 20 151/80 95 11/14/16 07:00 95 Room Air 11/14/16 06:00 97 11/14/16 04:00 100.4 97 23 143/72 95 11/14/16 04:00 97 11/14/16 02:00 102 11/14/16 00:00 101 11/14/16 00:00 98.2 101 19 139/69 95 11/13/16 22:00 110 11/13/16 21:27 18 11/13/16 20:17 93 21 11/13/16 20:00 101.3 111 19 126/74 94 11/13/16 20:00 112 11/13/16 19:00 96 Room Air 11/13/16 18:00 100 11/13/16 17:15 97 Room Air 11/13/16 11/13/16 11/14/16 15:00 23:00 07:00 Intake Total 922 ml 356 ml Output Total 5000 ml 1400 ml Balance -4078 ml -1044 ml Intake Oral 720 ml 180 ml IV Total 202 ml 176 ml Output Urine Total 5000 ml 1400 ml # Bowel Movements 1 0 Result Diagram: 11/14/16 0334 11/14/16 0334 Other Results Laboratory Tests Test 11/13/16 11/13/16 11/14/16 03:45 17:35 03:34 White Blood Count 13.1 TH/MM3 15.4 TH/MM3 Red Blood Count 3.00 MIL/MM3 3.04 MIL/MM3 Hemoglobin 8.8 GM/DL 9.0 GM/DL Hematocrit 26.2 % 26.9 % Mean Corpuscular Volume 87.3 FL 88.6 FL Mean Corpuscular Hemoglobin 29.2 PG 29.7 PG Mean Corpuscular Hemoglobin 33.5 % 33.5 % Concent Red Cell Distribution Width 16.3 % 16.6 % Platelet Count 345 TH/MM3 423 TH/MM3 Mean Platelet Volume 8.7 FL 8.5 FL Neutrophils (%) (Auto) 72.2 % 71.7 % Lymphocytes (%) (Auto) 14.2 % 14.1 % Monocytes (%) (Auto) 9.5 % 8.6 % Eosinophils (%) (Auto) 3.5 % 4.9 % Basophils (%) (Auto) 0.6 % 0.7 % Neutrophils # (Auto) 9.4 TH/MM3 11.0 TH/MM3 Lymphocytes # (Auto) 1.9 TH/MM3 2.2 TH/MM3 Monocytes # (Auto) 1.2 TH/MM3 1.3 TH/MM3 Eosinophils # (Auto) 0.5 TH/MM3 0.8 TH/MM3 Basophils # (Auto) 0.1 TH/MM3 0.1 TH/MM3 CBC Comment DIFF FINAL DIFF FINAL Differential Comment Urine Color LIGHT-YELLOW Urine Turbidity CLEAR Urine pH 8.0 Urine Specific [place] 1.007 Urine Protein NEG mg/dL Urine Glucose (UA) NEG mg/dL Urine Ketones NEG mg/dL Urine Occult Blood NEG Urine Nitrite NEG Urine Bilirubin NEG Urine Urobilinogen LESS THAN 2.0 MG/DL Urine Leukocyte Esterase NEG Urine RBC 3 /hpf Urine WBC 1 /hpf Urine Bacteria RARE /hpf Microscopic Urinalysis Comment CULT NOT INDICATED Sodium Level 140 MEQ/L Potassium Level 3.7 MEQ/L Chloride Level 104 MEQ/L Carbon Dioxide Level 26.2 MEQ/L Anion Gap 10 MEQ/L Blood Urea Nitrogen 14 MG/DL Creatinine 0.86 MG/DL Estimat Glomerular Filtration 91 ML/MIN Rate Random Glucose 102 MG/DL Calcium Level 9.1 MG/DL Imaging Last Impressions Chest X-Ray 11/05/16 1241 Signed Impressions: Service Date/Time: Saturday, November 05, 2016 13:03 - CONCLUSION: No acute disease. Saji Lal MD Objective Remarks General: NAD Chest: CTA bilaterally Cardiac: Regular, tachy Abd: +BS, soft ND/NT Ext: Mild bilateral LE edema A/P Problem List: (1) Rectal bleeding Status: Acute Plan: - Pt admitted with 4-5 episodes of dark red rectal bleeding that began on 11/04/16 - CT Abd/pelvis (11/05/16) --> Appendiceal wall thickening with the appendix measuring 1.2cm in transverse diameter, no evidence of appendicolith, adjacent fat stranding or free fluid. - Pt does not clinically appear to have appendicitis - GI following. - Pt had significant rectal bleeding on 11/05. - Pt underwent EGD/Colonoscopy (11/07/16)----> Lower GI bleed unclear source, mild gastritis secondary to NG tube suction trauma. - Bleeding scan (11/07/16)-----> No active GI bleeding is identified during the examination. - Repeat Colonoscopy (11/08/16)-----> Normal terminal ileum and normal colonoscopy. No further bleeding. - Pt has received 9 units PRBC and one unit of platelets. H/H has remained stable, labs today with Hgb 9.0/Hct 26.9. - Tolerating full liquid diet - SBFT is reportedly neagtive. - Pt will likely need outpt capsule endoscopy - Monitor labs and notify GI of any active bleeding. - Supportive care - DVT prophylaxis with SCDs (2) Volume overload Status: Acute Plan: - Pt received 9 units of PRBCs and one unit of platelets during this admission - CXR have indicated volume overload and pt with some LE edema. - Pt has been on Lasix in the ICU with good UOP. Pt last dose of Lasix was on and still diuresing well. - Monitor weight daily, weight today of 87.1kg - Renal function stable. - Stable UOP - Monitor I&Os (3) Fever Status: Acute Plan: - Pt has had fevers intermittently since 11/07/16 - Sputum culture from 11/07 growing H. flu and beta strep - Pt has been on cefepime - Blood cultures (11/09) with NGTD - Tmax 100.4 today @ 0400 today, afebrile since then. - Central line removed and cultured (11/13) with no growth in 24 hours. - UA was negative. - Repeat sputum culture ordered 11/13 - CXR (11/14) --> previously noted bilateral interstitial pulmonary infiltrates have resolved. No new focal pulmonary infiltrates. - WBC count increased slightly to 15.4 - CT Abd/pelvis has been ordered by GI - Remove Lange cath - ?Drug fever - Consult ID (4) Symptomatic anemia Status: Acute Plan: - See above. (5) Syncope Status: Acute Plan: - Pt had a syncopal episode prior to admission while on the commode per the pt family which may have been vasovagal - He also had some weakness while in the bathroom in the ER and had to be helped off the floor per nursing staff - This is likely secondary to his GIB and anemia Assessment and Plan Patient examined. Assessment and plan formulated with Merary Byrd PA-C. I agree with the above. Problem Qualifiers (1) Volume overload: Qualified Code: E87.71 - Transfusion associated circulatory overload (2) Syncope: Qualified Code: R55 - Syncope, unspecified syncope type Merary Byrd Nov 14, 2016 16:29 Thai Hernandez DO Nov 22, 2016 22:33
[2016-11-14] MEDS ORDERED: IOHEXOL 350 MG/ML 10 ML VIAL (for RAD DIAG) IV ONE (18:13)
--- NOTE | 2016-11-14 19:07 | RADRPT ---
EXAM DATE/TIME: 11/14/2016 17:50 [facility] COMPARISON: CT ABDOMEN & PELVIS W CONTRAST, November 05, 2016, 14:07. INDICATIONS : Abnormal cat scan showed appendiceal wall thickening. IV CONTRAST: 99 cc Omnipaque 350 (iohexol) IV ORAL CONTRAST: Prescribed oral contrast ingested. RADIATION DOSE: 9.96 CTDIvol (mGy) MEDICAL HISTORY : None SURGICAL HISTORY : None. ENCOUNTER: Subsequent ACUITY: 1 week PAIN SCALE: 0/10 LOCATION: Abdomen TECHNIQUE: Volumetric scanning of the abdomen and pelvis was performed. Using automated exposure control and ad justment of the mA and/or kV according to patient size, radiation dose was kept as low as reasonably achievable to obtain optimal diagnostic quality images. FINDINGS: LOWER LUNGS: Small bilateral pleural effusions and bibasilar atelectasis LIVER: Homogeneous density without lesion. There is no dilation of the biliary tree. No calcified gallston es. Subcentimeter low-density lesion, likely benign. SPLEEN: Normal size without lesion. PANCREAS: Within normal limits. KIDNEYS: Normal in size and shape. There is no mass, stone or hydronephrosis. ADRENAL GLANDS: Within normal limits. VASCULAR: There is no aortic aneurysm. BOWEL/MESENTERY: The stomach, small bowel, and colon demonstrate no acute abnormality. There is no free intraperitone al air or fluid. Appendix appears normal and not thickened on current study. No inflammatory changes. Residual contrast seen within the cecum. ABDOMINAL WALL: Within normal limits. RETROPERITONEUM: There is no lymphadenopathy. BLADDER: No wall thickening or mass. Lange catheter seen. REPRODUCTIVE: Within normal limits. INGUINAL: There is no lymphadenopathy or hernia. MUSCULOSKELETAL: Within normal limits for patient age. CONCLUSION: 1. Appendix is normal. No inflammatory changes. 2. Small bilateral pleural effusions and bibasilar density likely atelectasis. Camacho Walton MD on November 14, 2016 at 19:02 Board Certified Radiologist. This report was verified electronically.
[2016-11-15] VITALS: BP 122/68; PULSE 104; RESP 19; TEMP 99.6; O2SAT 100
[2016-11-15 00:50] VITALS: PULSE 103
[2016-11-15] MEDS: CEFEPIME INJ 2,000 MG in SODIUM CHLORIDE 0.9% INJ 100 ML IV SCH ×2 (01:06→12:37)
[2016-11-15 04:00] VITALS: BP 140/67; PULSE 104; RESP 18; TEMP 99.6; O2SAT 96
[2016-11-15 04:53] LABS: AUTOMATED NEUTROPHIL # 8.1 TH/MM3 (1.8-7.7); BASOPHIL # 0.1 TH/MM3 (0-0.2); BASOPHIL % 0.6 % (0.0-2.0); EOSINOPHIL # 0.8 TH/MM3 (0-0.4); EOSINOPHIL % 6.1 % (0.0-4.0); HEMATOCRIT 27.2 % (39.0-51.0); HEMO FLAGS DIFF FINAL; LYMPH % 21.2 % (9.0-44.0); LYMPHOCYTE # 2.8 TH/MM3 (1.0-4.8); MEAN CELL VOLUME 87.6 FL (80.0-100.0); MEAN CORPUSCULAR HEMOGLOBIN 29.4 PG (27.0-34.0); MEAN CORPUSCULAR HGB CONC 33.6 % (32.0-36.0); NEUT % 62.1 % (16.0-70.0); PLATELET COUNT 460 TH/MM3 (150-450); RED CELL DISTRIBUTION WIDTH 16.7 % (11.6-17.2)
[2016-11-15] MEDS: REMOVE OLD PATCH TD SCH (09:00)
[2016-11-15] MEDS: NICOTINE 21 MG/24 HR PATCH TD SCH (09:00)
[2016-11-15] MEDS: QUEtiapine FUMARATE 25 MG TAB PO SCH ×2 (09:00→11:56)
[2016-11-15 09:13] VITALS: BP 121/70; PULSE 85; RESP 18; TEMP 98.6; O2SAT 98
[2016-11-15 12:30] VITALS: BP 108/58; PULSE 102; RESP 18; TEMP 97.3; O2SAT 98
--- NOTE | 2016-11-15 12:33 | HHI.GIFU ---
Subjective Remarks Resting in bed. Feeling well. Denies any abdominal pain. Tolerating diet. Wants to go home (Bre Woodward) Objective Vitals I&O Vital Signs Date Time Temp Pulse Resp B/P Pulse Ox O2 Delivery O2 Flow Rate FiO2 11/15/16 09:13 98.6 85 18 121/70 98 11/15/16 08:15 Room Air 11/15/16 04:00 99.6 104 18 140/67 96 11/15/16 00:50 103 11/15/16 00:00 99.6 104 19 122/68 100 11/14/16 20:00 98.6 106 18 123/61 99 11/14/16 20:00 Room Air 11/14/16 16:00 99.0 114 17 103/62 95 11/14/16 14:00 98.8 107 18 114/56 94 I/O 11/14/16 11/14/16 11/14/16 11/15/16 11/15/16 11/15/16 07:00 15:00 23:00 07:00 15:00 23:00 Intake Total 356 ml 473 ml 240 ml 340 ml Output Total 1400 ml 900 ml 850 ml Balance -1044 ml -427 ml -610 ml 340 ml Intake Oral 180 ml 325 ml 240 ml 240 ml IV Total 176 ml 148 ml 0 ml 100 ml Output Urine Total 1400 ml 900 ml 850 ml # Voids 1 2 # Bowel Movements 0 1 0 Laboratory Laboratory Tests Test 11/15/16 03:28 White Blood Count 13.0 Red Blood Count 3.10 Hemoglobin 9.1 Hematocrit 27.2 Mean Corpuscular Volume 87.6 Mean Corpuscular Hemoglobin 29.4 Mean Corpuscular Hemoglobin 33.6 Concent Red Cell Distribution Width 16.7 Platelet Count 460 Mean Platelet Volume 8.8 Neutrophils (%) (Auto) 62.1 Lymphocytes (%) (Auto) 21.2 Monocytes (%) (Auto) 10.0 Eosinophils (%) (Auto) 6.1 Basophils (%) (Auto) 0.6 Neutrophils # (Auto) 8.1 Lymphocytes # (Auto) 2.8 Monocytes # (Auto) 1.3 Eosinophils # (Auto) 0.8 Basophils # (Auto) 0.1 CBC Comment DIFF FINAL Differential Comment Date/Time Procedure Status Source Growth 11/15/16 01:15 Gram Stain Received Sputum Expectorated Sputum Pending 11/15/16 01:15 Sputum Culture Received Sputum Expectorated Sputum Pending 11/13/16 18:55 Aerobic Blood Culture - Preliminary Resulted Blood Peripheral NO GROWTH IN 2 DAYS 11/13/16 18:55 Anaerobic Blood Culture - Preliminary Resulted Blood Peripheral NO GROWTH IN 2 DAYS 11/13/16 17:35 Wound Culture - Final Complete Catheter Tip Central Venous Line NO GROWTH IN 48 HOURS. Imaging Last Impressions Chest X-Ray 11/14/16 0800 Signed Impressions: Service Date/Time: Monday, November 14, 2016 12:40 - CONCLUSION: 1. The previously noted bilateral interstitial pulmonary infiltrates have resolved. 2. No new focal pulmonary infiltrates. Adolfo Castillo MD Abdomen/Pelvis CT 11/14/16 0000 Signed Impressions: Service Date/Time: Monday, November 14, 2016 17:50 - CONCLUSION: 1. Appendix is normal. No inflammatory changes. 2. Small bilateral pleural effusions and bibasilar density likely atelectasis. Camacho Walton MD Small Bowel X-Ray 11/13/16 0000 Signed Impressions: Service Date/Time: Sunday, November 13, 2016 12:52 - CONCLUSION: Negative small bowel series. There is no sign of obstruction. Lalo Thompson MD GI Bleed Scan Nuclear Medicine 11/07/16 0000 Signed Impressions: Service Date/Time: Monday, November 07, 2016 14:45 - CONCLUSION: No active GI bleeding is identified during the examination. Alex Bor MD Physical Exam HEENT: Normocephalic; atraumatic; no jaundice CHEST: CTA CARDIAC: RRR ABDOMEN: Soft, nondistended, nontender; no hepatosplenomegaly; bowel sounds are present in all four quadrants. EXTREMITIES: Generalized edema. SKIN: Normal; no rash; no jaundice. 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 CT Abdomen and pelvis (11/05/16)----> Appendiceal wall thickening with the appendix measuring 1.2 cm in transverse diameter. No evidence of appendicolith, adjacent fat stranding or free fluid. These findings may represent an early appendicitis. Pt had significant rectal bleeding on 11/05. S/P EGD/Colonoscopy (11/07/16)----> Lower GI bleed unclear source, mild gastritis secondary to NG tube suction trauma. Bleeding scan (11/07/16)-----> No active GI bleeding is identified during the examination. S/P Colonoscopy (11/08/16)---- -> Normal terminal ileum and normal colonoscopy. SBFT (11/13/16 )---> Negative small bowel series. There is no sign of obstruction. Rpt CT Abdomen/Pelvis ()----> 1. Appendix is normal. No inflammatory changes. 2. Small bilateral pleural effusions and bibasilar density likely atelectasis. No further bleeding. HH stable .11/23.2 - Anemia secondary to acute blood loss. S/P 9 units PRBC. HH has remains stable 9.11/23.2 today. Tolerating diet okay - Abnormal imaging on CT scan. (11/05/16)----> Appendiceal wall thickening with the appendix measuring 1.2 cm in transverse diameter. No evidence of appendicolith, adjacent fat stranding or free fluid. These findings may represent an early appendicitis. Of note, his WBC was initially normal and he was afebrile, but he now has low grade fever and worsening leukocytosis. Will repeat CT scan to follow up on this. - Fever, Leukocytosis. CXR normal. U/A unremarkable. Blood cultures no growth [address] unremarkable for abdomen, but did note some small bilateral pleural effusions and bibasilar density likely atelectasis. Sputum cx pending. PLAN: - CHERYL - PPI - FU YING 2 weeks - Capsule endoscopy as outpatient - GI will sign off, please reconsult as needed - Patient seen and examined by Dr. Bonilla and myself and this note is written on his behalf. (Bre Woodward) Physician Comments Seen and examined with Ms. Crissy RICARDO< no bleeding, repeat CT normal. Dc home with gi fu for capsule endoscopy. Thank you (Pushpa Bonilla MD) Bre Woodward Nov 15, 2016 12:33 Pushpa Bonilla MD Nov 15, 2016 16:47
[2016-11-15] MEDS ORDERED: PROT40TA PO (13:49)
--- NOTE | 2016-11-15 14:03 | HHI.DS ---
Discharge Summary Admission Date Nov 05, 2016 at 14:28 Discharge Date: Nov 15, 2016 Admitting Diagnosis Rectal bleeding; symptomatic anemia (1) Rectal bleeding Diagnosis: Principal (2) Volume overload Diagnosis: Secondary (3) Fever Diagnosis: Secondary (4) Symptomatic anemia Diagnosis: Secondary (5) Syncope Diagnosis: Secondary Consultants Dr. Shaan Erwin - GI Dr. Shabbir Zuniga - Rn Travel medicine Procedures EGD/Colonoscopy (11/07/16)----> Lower GI bleed unclear source, mild gastritis secondary to NG tube suction trauma. Bleeding scan (11/07/16)-----> No active GI bleeding is identified during the examination. Repeat Colonoscopy (11/08/16)-----> Normal terminal ileum and normal colonoscopy. No further bleeding. Brief History Mr. Butler is a 60 y/o male with GERD and essential tremor. He presented to the ED at [facility] [place] on 11/05/16 for evaluation of dark red blood per rectum. Patient speaks primarily Frisian but there were multiple family members present to translate at bedside. Pts family relays that yesterday afternoon the pt had a syncopal episode after urinating. He did not strike his head and the syncope was witnessed by his family. The pt then started having some lower abdominal pain and had to have a BM. When he did have a BM it was dark red blood. The pt reports having another 4 episode of rectal bleeding last night and into this morning. His last episode of rectal bleeding was around 0900 this morning. Patient states the lower abdominal pain yesterday was quite severe however he is no longer having significant pain. It was described as a mild lower abdominal pain currently, more so on the left hand side. Pt denies any headache , focal deficit, fever or chills. He has been nauseous without vomiting. Patient has not had a colonoscopy. He states that last week he saw his PCP, Dr. Fermin, with complaints of epigastric abd pain and had a CMP and EKG performed. EKG noted sinus rhythm and his labs were stable. He was recommended to start ASA 325 mg daily and Omeprazole 20mg po daily. CBC/BMP: 11/15/16 0328 11/14/16 0334 Significant Findings Laboratory Tests Test 11/13/16 11/13/16 11/14/16 11/15/16 03:45 17:35 03:34 03:28 White Blood Count 13.1 TH/MM3 15.4 TH/MM3 13.0 TH/MM3 (4.0-11.0) (4.0-11.0) (4.0-11.0) Red Blood Count 3.00 MIL/MM3 3.04 MIL/MM3 3.10 MIL/MM3 (4.50-5.90) (4.50-5.90) (4.50-5.90) Hemoglobin 8.8 GM/DL 9.0 GM/DL 9.1 GM/DL (13.0-17.0) (13.0-17.0) (13.0-17.0) Hematocrit 26.2 % 26.9 % 27.2 % (39.0-51.0) (39.0-51.0) (39.0-51.0) Neutrophils (%) (Auto) 72.2 % 71.7 % (16.0-70.0) (16.0-70.0) Monocytes (%) (Auto) 9.5 % (0.0-8.0) 8.6 % (0.0-8.0) 10.0 % (0.0-8.0) Neutrophils # (Auto) 9.4 TH/MM3 11.0 TH/MM3 8.1 TH/MM3 (1.8-7.7) (1.8-7.7) (1.8-7.7) Monocytes # (Auto) 1.2 TH/MM3 1.3 TH/MM3 1.3 TH/MM3 (0-0.9) (0-0.9) (0-0.9) Eosinophils # (Auto) 0.5 TH/MM3 0.8 TH/MM3 0.8 TH/MM3 (0-0.4) (0-0.4) (0-0.4) Urine Bacteria RARE /hpf (NONE) Eosinophils (%) (Auto) 4.9 % (0.0-4.0) 6.1 % (0.0-4.0) Platelet Count 460 TH/MM3 (150-450) Imaging Last Impressions Chest X-Ray 11/14/16 0800 Signed Impressions: Service Date/Time: Monday, November 14, 2016 12:40 - CONCLUSION: 1. The previously noted bilateral interstitial pulmonary infiltrates have resolved. 2. No new focal pulmonary infiltrates. Adolfo Castillo MD Abdomen/Pelvis CT 11/14/16 0000 Signed Impressions: Service Date/Time: Monday, November 14, 2016 17:50 - CONCLUSION: 1. Appendix is normal. No inflammatory changes. 2. Small bilateral pleural effusions and bibasilar density likely atelectasis. Camacho Walton MD Small Bowel X-Ray 11/13/16 0000 Signed Impressions: Service Date/Time: Sunday, November 13, 2016 12:52 - CONCLUSION: Negative small bowel series. There is no sign of obstruction. Lalo Thompson MD GI Bleed Scan Nuclear Medicine 11/07/16 0000 Signed Impressions: Service Date/Time: Monday, November 07, 2016 14:45 - CONCLUSION: No active GI bleeding is identified during the examination. Alex Bro MD PE at Discharge General: NAD Chest: CTA bilaterally Cardiac: Regular, tachy Abd: +BS, soft ND/NT Ext: Mild bilateral LE edema Hospital Course Rectal bleeding Pt admitted with 4-5 episodes of dark red rectal bleeding that began on 11/04/16. Pt had a syncopal episode prior to admission while on the commode per the pt family which may have been vasovagal. CT Abd/pelvis (11/05/16) --> Appendiceal wall thickening with the appendix measuring 1.2cm in transverse diameter, no evidence of appendicolith, adjacent fat stranding or free fluid. Pt did not clinically appear to have appendicitis. GI was consulted. Pt had significant rectal bleeding on 11/05. Pt underwent EGD/Colonoscopy (11/07/16)----> Lower GI bleed unclear source, mild gastritis secondary to NG tube suction trauma. Bleeding scan (11/07/16)-----> No active GI bleeding is identified during the examination. Repeat Colonoscopy (11/08/16)-----> Normal terminal ileum and normal colonoscopy. No further bleeding. Pt has received 9 units PRBC and one unit of platelets. H/H has remained stable. SBFT id negative. Pt will likely need outpt capsule endoscopy. Labs on the day of discharge with Hgb 9.1/Hct 27.2. Volume overload - Pt received 9 units of PRBCs and one unit of platelets during this admission. CXR have indicated volume overload and pt with some LE edema. Pt was on Lasix in the ICU with good UOP. Pt last dose of Lasix was on 11/11/16 and diuresed well. Weight has been improving to 87.1kg on discharge. Renal function stable. Fever Pt had fevers intermittently starting on 11/07/16. Sputum culture from 11/07 grew out H. flu and beta strep. Pt was treated with cefepime (11/10/16 to 11/15/16). Blood cultures (11/09) with NGTD. Pt has been afebrile since 11/14 @ 0400. Central line removed and cultured (11/13) with no growth in 24 hours. - UA was negative. Repeat sputum culture is pending. CXR (11/14) --> previously noted bilateral interstitial pulmonary infiltrates have resolved. No new focal pulmonary infiltrates. WBC count is 13.0 on the day of discharge. CT Abd/pelvis has been ordered by GI and was negative. Lange cath removed. Pt will need to followup with his PCP in 1 week and make sure repeat sputum cultures are negative. He will need to followup with GI in 2 weeks. He is to continue on Protonix 40mg po daily GI has cleared him to continue on ASA 325mg po daily but no other NSAID use. Pt Condition on Discharge: Stable Discharge Disposition: Disch w/ Home Health Serv Discharge Instructions DIET: Follow Instructions for: Heart Healthy Diet Activities you can perform: Regular-No Restrictions Follow up Referrals: Gastroenterology - 2 Weeks @ [facility] PCP Follow-up - [address] Lalo Fermin New Medications: Pantoprazole (Protonix) 40 Mg Tab 40 MG PO DAILY Reflux #30 Ref 0 TAB Continued Medications: Aspirin (Aspirin) 325 Mg Tab 325 MG PO DAILY Ref 0 TAB Discontinued Medications: ([Unk Stomach Pill]) DAILY Additional Information Patient examined. Assessment and plan formulated with Merary Byrd PA-C. I agree with the above. Merary Byrd Nov 15, 2016 14:03 Thai Hernandez DO Nov 22, 2016 22:34 Discharge Disposition: Disch w/ Home Health Serv Discharge Instructions DIET: Follow Instructions for: Heart Healthy Diet Activities you can perform: Regular-No Restrictions Follow up Referrals: Gastroenterology - 2 Weeks @ [facility] PCP Follow-up - [address] Lalo Fermin New Medications: Pantoprazole (Protonix) 40 Mg Tab 40 MG PO DAILY Reflux #30 Ref 0 TAB Continued Medications: Aspirin (Aspirin) 325 Mg Tab 325 MG PO DAILY Ref 0 TAB Discontinued Medications: ([Unk Stomach Pill]) DAILY Merary Byrd Nov 15, 2016 14:03
--- NOTE | 2016-11-15 14:20 | HHI.DCPOC ---
Discharge Care Plan Diagnosis: (1) Rectal bleeding (2) Hypovolemic shock (3) Fever (4) Volume overload (5) Symptomatic anemia (6) Syncope Goals to Promote Your Health * To prevent worsening of your condition and complications * To maintain your health at the optimal level Directions to Meet Your Goals Take your medications as prescribed Follow your dietary instruction Follow activity as directed Keep your appointments as scheduled Take your immunizations and boosters as scheduled If your symptoms worsen call your PCP, if no PCP go to Urgent Care Center or Emergency Room Smoking is Dangerous to Your Health. Avoid second hand smoke Call the 24-hour hour crisis hotline for domestic abuse at Merary Byrd Nov 15, 2016 14:20 Thai Hernandez DO Nov 22, 2016 22:34
--- NOTE | 2016-11-15 14:22 | HHI.FF ---
Face to Face Verification Diagnosis: (1) Rectal bleeding (2) Hypovolemic shock (3) Volume overload (4) Fever (5) Symptomatic anemia (6) Syncope Physical Therapy Order: Evaluate and Treat, Improve ambulation, Strength and gait training Home Health Nursing Order: Nursing assessment with vital signs I have seen patient Vitayl Butler on 11/15/16. My clinical findings support the need for the requested home health care services because: Deconditioned w/ increased weakness I certify that my clinical findings support that this patient is homebound because: Post-op weakness Unsteady gait/balance Merary Byrd Nov 15, 2016 14:22 Thai Hernandez DO Nov 15, 2016 15:32
== END 2016-11-15 17:49 | disposition home health service (06) | DRG 377 ==
LOC: NEPA 12:19 → NEDA 14:28 → NEDH 19:27 → N03B 11-06 00:31 → N07A 11-14 14:11
PROVIDERS: ADMIT Surgery Surgical Critical Care; ATTEND Surgery Surgical Critical Care
PROC: 30233N1 Transfusion of Nonautologous Red Blood Cells into Peripheral Vein, Percutaneous Approach (ICD-10-PCS; principal; 2016-11-05)
PROC: 03HY32Z Insertion of Monitoring Device into Upper Artery, Percutaneous Approach (ICD-10-PCS; 2016-11-06)
PROC: 02HV33Z Insertion of Infusion Device into Superior Vena Cava, Percutaneous Approach (ICD-10-PCS; 2016-11-06)
PROC: 0BH17EZ Insertion of Endotracheal Airway into Trachea, Via Natural or Artificial Opening (ICD-10-PCS; 2016-11-06)
PROC: 5A1945Z Respiratory Ventilation, 24-96 Consecutive Hours (ICD-10-PCS; 2016-11-06)
PROC: 0DJ08ZZ Inspection of Upper Intestinal Tract, Via Natural or Artificial Opening Endoscopic (ICD-10-PCS; 2016-11-07)
PROC: 0DJD8ZZ Inspection of Lower Intestinal Tract, Via Natural or Artificial Opening Endoscopic (ICD-10-PCS; 2016-11-07)
PROC: 0DJD8ZZ Inspection of Lower Intestinal Tract, Via Natural or Artificial Opening Endoscopic (ICD-10-PCS; 2016-11-08)
PROC: 30233R1 Transfusion of Nonautologous Platelets into Peripheral Vein, Percutaneous Approach (ICD-10-PCS; 2016-11-08)
DX: K62.5 Hemorrhage of anus and rectum (principal); R57.1 Hypovolemic shock; D62 Acute posthemorrhagic anemia; J98.11 Atelectasis; J90 Pleural effusion, not elsewhere classified; K21.9 Gastro-esophageal reflux disease without esophagitis; R55 Syncope and collapse; G25.0 Essential tremor; K29.60 Other gastritis without bleeding; R60.0 Localized edema; F41.9 Anxiety disorder, unspecified; Z79.82 Long term (current) use of aspirin; E87.71 Transfusion associated circulatory overload; R50.2 Drug induced fever; Y84.8 Other medical procedures as the cause of abnormal reaction of the patient, or of later complication, without mention of misadventure at the time of the procedure
CPT/HCPCS: 31500; 36430; 36556; 36600; 71010; 71020; 74177; 74250; 78278; 80048; 80053; 81001; 82550; 82805; 83735; 84100; 84132; 84484; 85014; 85018; 85025; 85027; 85610; 85730; 86850; 86900; 86901; 86920; 87040; 87070; 87071; 87077; 87086; 87184; 87185; 87205; 87641; 93005; 93306; 94002; 94003; 94640; 94664; A9560; C9113; C9399; J0131; J0171; J0360; J0461; J0692; J1642; J1940; J2060; J2250; J2270; J3010; J3480; J7030; J7050; J7120; P9016; P9035; P9045; Q9963; Q9967